=== PATIENT | male | born 1940 | race Caucasian/White ===

== ENCOUNTER 2024-11-22 09:06 | Outpatient (CLI) | payer OTHER, SELFPAY ==
--- NOTE | ~2024-11-22 | XR_ITS ---
XR ribs RT 2V w CXR 2V Ordering provider: Andrae Keller MD History: . R07.81 - Pleurodynia . Comparison: None. FINDINGS: BONES: No acute rib fracture. MEDIASTINUM: The cardiac silhouette is not enlarged. LUNGS: No infiltrates, effusions or pneumothorax. OTHER: No free air under the diaphragm. IMPRESSION: 1. No right rib fracture (Note: subtle/nondisplaced rib fractures can be occult on plain films and i f there is continued clinical suspicion for rib fracture, recommend follow up CT chest). 2. No acute cardiopulmonary findings. Reviewed, dictated and finalized at location A. IMPRESSION: 1. No right rib fracture (Note: subtle/nondisplaced rib fractures can be occul t on plain films and if there is continued clinical suspicion for rib fracture, recommend follow up CT chest). 2. No acute cardiopulmonary findings.
== END 2024-11-22 09:07 | disposition home or self-care (01) ==
LOC: MICIMG 09:08
PROVIDERS: PCP Family Medicine; Visit Provider Family Medicine
DX: R07.81 Pleurodynia (principal)
CPT/HCPCS: 71046; 71100

== ENCOUNTER 2024-11-27 11:20 | Outpatient (CLI) | payer OTHER, SELFPAY ==
--- OUTSIDE RECORDS SUMMARY | 2024-11-27 11:26 | XMS_ITS | Encounter Summary ---
Author Organization [facility] Address [address] [facility] [place] [address] Phone Care Team Providers Care Construction Controller Name Role Phone Ramon Alford MD Unavailable Isac Pina MD Primary Care Provider [phone] Emma Gibson HUMAN PROJECTILE, KETTLE GIRL Unavailable +- [phone] Denise White HUMAN PROJECTILE, SIGN FABRICATOR Unavailable [phone] Constance Garsia HUMAN PROJECTILE, KETTLE GIRL Unavailable Christian Christian HUMAN PROJECTILE, KETTLE GIRL Unavailable [phone] Dean Sauceda MD Unavailable [phone] Reason for Visit * Reason Comments Medication Refill Encounter Details Date Type Department Care Team (Late st Contact Info) Description 08/25/2023 Refill [facility] Emergency [address] [place] [address] Flori Yeboah, [place] [address] Medication Refill Social History Tobacco Use Types Packs/Day Years Used Date Smoking Tobacco: Never Passive Smoke Exposure: Never Smokeless Tobacco: Never Alcohol Use Standard Drinks/Week Comments Yes 0 (1 standard drink = 0.6 oz pur e alcohol) Occasional [facility] Utilities Answer Date Recorded In the past 12 months has th e electric, gas, oil, or water company threatened to shut off services in your home? No 07/14/2023 Social Connection and Isolation Panel Answer Date Recorded In a typical week, how many times do you talk on the phone with family, friends, or neighbors? More than three times a week 07/14/2023 How often do you get togethe r with friends or relatives? More than three times a week 07/14/2023 How often do you attend chur ch or mu-ism services? More than 4 times per year 07/14/2023 Do you belong to any clubs o r organizations such as jainism groups, unions, fraternal or athletic groups, or school groups? Yes 07/14/2023 How often do you attend meet ings of the clubs or organizations you belong to? More than 4 times per year 07/14/2023 Are you , , di vorced, , never , or living with a partner? 07/14/2023 AUDIT-C Answer Date Recorded Q1: How often do you have a drink containing alcohol? Never 07/14/2023 Q2: How many drinks containi ng alcohol do you have on a typical day when you are drinking? Patient does not drink Q3: How often do you have si x or more drinks on one occasion? Never 07/14/2023 Overall Financial Resource Strain (CARDIA) Answe r Date Recorded How hard is it for you to pa y for the very basics like food, housing, medical care, and heating? Not hard at all 07/14/2023 PHQ-2 Answer Date Recorded Total Score - Questions 1-9 0 06/25 [facility] - Occupational Stress Questionnaire Answer Date Recorded Do you feel stress - tense, restless, nervous, or anxious, or unable to sleep at night because your mind is troubled all the time - these days? Not at all 07/14/2023 Exercise Vital Sign Answer Date Recorde d On average, how many days pe r week do you engage in moderate to strenuous exercise (like a brisk walk)? 0 days 07/14/2023 On average, how many minutes do you engage in exercise at this level? 0 min 07/14/2023 Hunger Vital Sign Answer Date Recorded Within the past 12 months, y ou worried that your food would run out before you got the money to buy more. Never true 07/14/19 24 Within the past 12 months, t he food you bought just didn't last and you didn't have money to get more. Never true 07/14/2023 PRAPARE - Transportation Answer Date Re corded In the past 12 months, has l ack of transportation kept you from medical appointments or from getting medications? No 06/25 In the past 12 months, has l ack of transportation kept you from meetings, work, or from getting things needed for daily living? No 07/14/2023 Housing Stability Vital Sign Answer Fernando e Recorded In the last 12 months, was t here a time when you were not able to pay the mortgage or rent on time? No 07/14/2023 In the last 12 months, how many places have you lived? 1 07/14/2023 In the last 12 months, was t here a time when you did not have a steady place to sleep or slept in a skilled nursing (including now)? No 07/14/2023 Sexually Active Control Partners Comments Yes Female Sex and Gender Information Value Date Recorded Sex Assigned at Not on file Legal Sex Male 11:58 PM CDT Gender Identity Not on file Sexual Orientation Not on file documented as of this encounter Miscellaneous Notes * Telephone Encounter - Amada Martinez RN - 08/25/2023 9:47 AM CDT Per nursing clinical judgement, provider to review and approve the medication(s) order(s) if appropriate. 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 documented as of this encounter Care Teams Construction Controller Relationship Specialty Start Date End Date Isac Weathers MD [address] [place] [address] PCP - General Internal Medicine 06/10/23 Ramon Alford MD Consulting Physician Cardiovascular Disease - Cardiology 09/14/22 04/30/24 Emma Gibson, HUMAN PROJECTILE, KETTLE GIRL [address] [address] Nurse Practitioner Cardiology 07/05/23 Denise White, HUMAN PROJECTILE, SIGN FABRICATOR [address] [place] [address] Nurse Practitioner Advanced Practice Nurse 09/25/22 Constance Garsia HUMAN PROJECTILE, KETTLE GIRL [address] [place] [address] Nurse Practitioner Advanced Practice Nurse 12/02/22 Christian Christian, HUMAN PROJECTILE, KETTLE GIRL [address] [place] [address] Nurse Practitioner Advanced Practice Nurse 10/19/23 Dean Sauceda MD [address] [place] [id number] Consulting Physician Neurology 04/28/24 documented as of this encounter
--- OUTSIDE RECORDS SUMMARY | 2024-11-27 11:26 | XMS_ITS | Encounter Summary ---
Author Organization [facility] Address [address] [place] [address] Phone Care Team Providers Care Emt/Paramedic Name Role Phone Flori Yeboah PAC Primary Care Pro vider Ramon Alford MD Unavailable Isac Pina MD Primary Care Provider [phone] Emma Gibson EVP BUSINESS DEVELOPMENT, CLIMATOLOGIST Unavailable + [phone] Denise White EVP BUSINESS DEVELOPMENT, ARCHAEOLOGY PROFESSOR Unavailable + [phone] Constance Garsia EVP BUSINESS DEVELOPMENT, CLIMATOLOGIST Unavailable Christian Christian EVP BUSINESS DEVELOPMENT, CLIMATOLOGIST Unavailable [phone] Dean Sauceda MD Unavailable [phone] Reason for Visit * Reason Comments Medication Refill Encounter Details Date Type Department Care Team (Late st Contact Info) Description 02/02/[address] [facility] Medical/Surgical Intensive Care [address] [place] [address] Flori Yeboah, PAC [address] [place] [address] Medication Refill Social History Tobacco Use Types Packs/Day Years Used Date Smoking Tobacco: Never Smokeless Tobacco: Never Alcohol Use Standard Drinks/Week Comments Yes 0 (1 standard drink = 0.6 oz pur e alcohol) Occasional Sexually Active Control Partners Comments Yes Female Sex and Gender Information Value Date Recorded Sex Assigned at Not on file Legal Sex Male 11:58 PM CDT Gender Identity Not on file Sexual Orientation Not on file COVID-19 Exposure Response Date Recorded In the last 10 days, have yo u been in contact with someone who was confirmed or suspected to have Coronavirus/COVID-19? No / Unsure 02/04/2023 8:34 AM CDT documented as of this encounter Miscellaneous Notes * Telephone Encounter - Amada Martinez RN - 02/02/2023 8:28 AM CDT Per nursing clinical judgement, provider to review and approve the medication(s) order(s) if appropriate. Requested Prescriptions Pending Prescriptions Disp Refills lisinopril (PRINIVIL, ZESTRIL) 10 MG Tablet [Pharmacy Med Name: LISINOPRIL 10 MG TABLET] 90 Tablet 0 Sig: TAKE 1 TABLET BY MOUTH EVERY DAY There is no refill protocol information for this order documented in this encounter Plan of Treatment Not on file documented as of this encounter Visit Diagnoses Not on filedocumented in this encounter Additional Health Concerns Infection Onset Date Last Indicated Resolved Time COVID - 19 06/06/2023 06/06/2023 06/16/2023 12:1 6 AM CIRCULAR SAWYER STONE RSV 06/06/2023 06/06/2023 07/04/2023 12:1 6 AM CIRCULAR SAWYER STONE documented as of this encounter Care Teams Emt/Paramedic Relationship Specialty Start Date End Date Flori Yeboah PAC [address] [place] [address] PCP - General Physician Senior Game Designer 08/26/22 06/09/23 Isac Weathers MD [address] [place] [address] PCP - General Internal Medicine 06/10/23 Ramon Alford MD [address] [facility] [place] [address] Consulting Physician Cardiovascular Disease - Cardiology 09/14/22 04/30/24 Emma Gibson, EVP BUSINESS DEVELOPMENT, CLIMATOLOGIST [address] [address] Nurse Practitioner Cardiology 07/05/23 Denise White, EVP BUSINESS DEVELOPMENT, ARCHAEOLOGY PROFESSOR [address] [place] [address] Nurse Practitioner Advanced Practice Nurse 09/25/22 Constance Garsia APRN, CLIMATOLOGIST [address] [place] [address] Nurse Practitioner Advanced Practice Nurse 12/02/22 Christian Christian, EVP BUSINESS DEVELOPMENT, CLIMATOLOGIST [address] [place] [address] Nurse Practitioner Advanced Practice Nurse 10/19/23 Dean Sauceda MD [address] [place] [id number] Consulting Physician Neurology 04/28/24 documented as of this encounter
--- OUTSIDE RECORDS SUMMARY | 2024-11-27 11:26 | XMS_ITS | Encounter Summary ---
Author Organization [facility] Address [address] [place] [address] Phone Care Team Providers Care Vice President Digital Strategist Name Role Phone Ramon Alford MD Unavailable [facility] Isac Granda MD Primary Care Provider [phone] Emma Gibson GEOLOGICAL SCIENCE TEACHER, WING COVERER Unavailable + [phone] Denise White GEOLOGICAL SCIENCE TEACHER, MEMBER SERVICE SPECIALIST Unavailable [phone] Constance Garsia GEOLOGICAL SCIENCE TEACHER, WING COVERER Unavailable Christian Christian GEOLOGICAL SCIENCE TEACHER, WING COVERER Unavailable [phone] Dean Sauceda MD Unavailable [phone] Reason for Visit * Reason Comments Medication Refill Encounter Details Date Type Department Care Team (Late st Contact Info) Description 07/31/2023 Refill [facility] - [facility] - [place] [address] [place] [address] Isac Weathers MD [address] [place] [address] Medication Refill Social History Tobacco Use Types Packs/Day Years Used Date Smoking Tobacco: Never Passive Smoke Exposure: Never Smokeless Tobacco: Never Alcohol Use Standard Drinks/Week Comments Yes 0 (1 standard drink = 0.6 oz pur e alcohol) Occasional [facility] Utilities Answer Date Recorded In [...] often do you attend chur ch or evangelical services? More than 4 times per year 07/14/2023 Do you belong to any clubs o r organizations such as restoration groups, unions, fraternal or athletic groups, or [...] Total Score - Questions 1-9 0 06/25 [facility] of Occupat ional Health - Occupational Stress [...] place to sleep or slept in a chcf (including now)? No 07/14/2023 Sexually Active Control Partners Comments Yes Female Sex and Gender Information Value Date Recorded Sex Assigned at Not on file Legal Sex Male 11:58 PM CDT Gender Identity Not on file Sexual Orientation Not on file documented as of this encounter Miscellaneous Notes * Telephone Encounter - Amada Martinez RN - 08/02/2023 9:07 AM CDT Medication(s) refilled and signed per [facility] Chronic Medication Refill Standing Order for Pediatricand Adult Patients. Requested Prescriptions Pending Prescriptions Disp Refills atorvastatin (LIPITOR) 40 MG Tablet [Pharmacy Med Name: ATORVASTATIN 40 MG TABLET] 90 Tablet 0 Sig: TAKE 1 TABLET BY MOUTH EVERY DAY AT NIGHT Hmg CoA Reductase Inhibitors Protocol Passed - 07/31/2023 7:36 AM Passed - Visit with relevant provider in past 12 months or upcoming 90 days Recent Visits Date Type Provider Dept 07/14/23 Office Visit Isac Weathers MD [facility] 03/17/23 Office Visit Flori Yeboah PAC [facility] [place] 01/20/23 Office Visit Flori Yeboah, PAC [facility] [place] 12/14/22 Office Visit Flori Yeboah, PAC [facility] [place] 11/11/22 Office Visit Isac Weathers MD [facility] [place] 10/28/22 Office Visit Flori Yeboah, PAC [facility] [place] 10/12/22 Office Visit Flori Yeboah, PAC [facility] [place] 09/11/22 Office Visit Flori Yeboah, PAC [facility] [place] 08/26/22 Office Visit Flori Yeboah, PAC [facility] [place] Showing recent visits within past 365 days and meeting all other requirements Future Appointments Date Type Provider Dept 08/17/23 Appointment Isac Weathers MD [facility] [place] 09/17/23 Appointment Flori Yeboah, PAC [facility] [place] Showing future appointments within next 90 days and meeting all other requirements Passed - Lipid panel in past 12 months LDL Date Value Ref Range Status 08/12/2022 60 5 - 130 mg/dL Final HDL CHOLESTEROL Date Value Ref Range Status 08/12/2022 40.5 >40 mg/dL Final CHOLESTEROL Date Value Ref Range Status 08/12/2022 122 <=200 mg/dL Final TRIGLYCERIDES Date Value Ref Range Status 08/12/2022 109 <150 mg/dL Final VLDL Date Value Ref Range Status 08/12/2022 22 5 - 55 mg/dL Final CHOL/HDL RATIO Date Value Ref Range Status 08/12/2022 3.0 0.0 - 4.4 Final NON-HDL CHOLESTEROL Date Value Ref Range Status 08/12/2022 81.5 <130 mg/dL Final Passed - CMP in past 12 months SODIUM Date Value Ref Range Status 06/06/2023 128 (L) 136 - 145 mmol/L Final POTASSIUM Date Value Ref Range Status 06/06/2023 4.3 3.5 - 5.1 mmol/L Final CHLORIDE Date Value Ref Range Status 06/06/2023 97 (L) 98 - 107 mmol/L Final CO2, VENOUS Date Value Ref Range Status 06/06/2023 22 22 - 30 mmol/L Final ANION GAP Date Value Ref Range Status 06/06/2023 13.3 <18.0 mmol/L Final GLUCOSE Date Value Ref Range Status 06/06/2023 142 (H) 70 - 99 mg/dL Final BUN Date Value Ref Range Status 06/06/2023 10 8 - 26 mg/dL Final CREATININE, BLOOD Date Value Ref Range Status 06/06/2023 1.01 0.70 - 1.30 mg/dL Final BUN/CREATININE RATIO Date Value Ref Range Status 06/06/2023 10 (L) 12 - 20 ratio Final TOTAL PROTEIN Date Value Ref Range Status 06/06/2023 7.5 6.3 - 8.2 g/dL Final ALBUMIN Date Value Ref Range Status 06/06/2023 4.1 3.5 - 5.0 g/dL Final A/G RATIO Date Value Ref Range Status 06/06/2023 1.2 1.0 - 2.2 Final CALCIUM Date Value Ref Range Status 06/06/2023 9.3 8.7 - 10.5 mg/dL Final T BILI Date Value Ref Range Status 06/06/2023 1.0 0.2 - 1.2 mg/dL Final SGOT (AST) Date Value Ref Range Status 06/06/2023 24 5 - 34 U/L Final SGPT (ALT) Date Value Ref Range Status 06/06/2023 16 0 - 55 U/L Final ALKALINE PHOSPHATASE Date Value Ref Range Status 06/06/2023 80 40 - 150 U/L Final GFR, EST. NONAFRICAN Date Value Ref Range Status 06/06/2023 >60 >=60 Final GFR, EST. Date Value Ref Range Status 06/06/2023 >60 >=60 Final GFR, ESTIMATED Date Value Ref Range Status 06/06/2023 >60 >=60 Final Comment: Creatinine Clearance is the preferred criteria for selecting drug dose adjustments in renally impaired patients. The GFR is provided as additional pertinent clinical information. GFR is reported in mL/min/1.73 sq m. Calculation based on the Chronic Kidney Disease Epidemiology Collaboration (CKD- EPI) equation refitwithout adjustment for race. IS THE PATIENT REQUIRED TO BE FASTING? 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 documented as of this encounter Care Teams Vice President Digital Strategist Relationship Specialty Start Date End Date Isac Weathers MD [address] [place] [address] PCP - General Internal Medicine 06/10/23 Ramon Alford MD Consulting Physician Cardiovascular Disease - Cardiology 09/14/22 04/30/24 Emma Gibson, GEOLOGICAL SCIENCE TEACHER, WING COVERER #[address] [address] Nurse Practitioner Cardiology 07/05/23 Denise White GEOLOGICAL SCIENCE TEACHER, MEMBER SERVICE SPECIALIST [address] [place] [address] Nurse Practitioner Advanced Practice Nurse 09/25/22 Constance Garsia GEOLOGICAL SCIENCE TEACHER, WING COVERER [address] [place] [address] Nurse Practitioner Advanced Practice Nurse 12/02/22 Christian Christian, GEOLOGICAL SCIENCE TEACHER, WING COVERER [address] [place] [address] Nurse Practitioner Advanced Practice Nurse 10/19/23 Dean Sauceda MD [address] [place] [address] Consulting Physician Neurology 04/28/24 documented as of this encounter
--- OUTSIDE RECORDS SUMMARY | 2024-11-27 11:26 | XMS_ITS | Encounter Summary ---
Author Organization [facility] Address [address] [facility] [place] [address] Phone Care Team Providers Care Teaching Artist Name Role Phone Flori Yeboah PAC Primary Care Pro vider Ramon Alford MD Unavailable Isac Pina MD Primary Care Provider [phone] Emma Gibson POULTRY CULLER, VOIP ENGINEER Unavailable + [phone] Denise White POULTRY CULLER, VEGETABLE I FARMWORKER Unavailable + [phone] Constance Garsia POULTRY CULLER, VOIP ENGINEER Unavailable Christian Christian POULTRY CULLER, VOIP ENGINEER Unavailable [phone] Dean Sauceda MD Unavailable [phone] Reason for Visit * Reason Comments Medication Refill Encounter Details Date Type Department Care Team (Late st Contact Info) Description 09/23/2022 Refill [facility] - Internal Medicine - [place] [address] [place] [address] Flori Yeboah, PAC [address] [place] [address] Medication Refill Social History Tobacco Use Types Packs/Day Years Used Date Smoking Tobacco: Never Smokeless Tobacco: Never Alcohol Use Standard Drinks/Week Comments Not Asked 0 (1 standard drink = 0.6 oz pur e alcohol) Occasional Sexually Active Control Partners Comments Yes Sex and Gender Information Value Date Recorded Sex Assigned at Not on file Legal Sex Male 11:58 PM CDT Gender Identity Not on file Sexual Orientation Not on file COVID-19 Exposure Response Date Recorded In the last 10 days, have yo u been in contact with someone who was confirmed or suspected to have Coronavirus/COVID-19? No / Unsure 09/25/2022 3:11 PM CDT documented as of this encounter Plan of Treatment Not on file documented as of this encounter Visit Diagnoses Not on filedocumented in this encounter Additional Health Concerns Infection Onset Date Last Indicated Resolved Time C. difficile Rule-Out 10/28/2022 10/28/20222022 6:05 PM CDT COVID - 19 06/06/2023 06/06/2023 06/16/2023 12:1 6 AM SSDS MK 2 ADVANCED OPERATOR RSV 06/06/2023 06/06/2023 07/04/2023 12:1 6 AM SSDS MK 2 ADVANCED OPERATOR documented as of this encounter Care Teams Teaching Artist Relationship Specialty Start Date End Date Flori Yeboah, [place] [address] [place] [address] PCP - General Physician Ramp Manager 08/26/22 06/09/23 Isac Weathers MD [address] [place] [address] PCP - General Internal Medicine 06/10/23 Ramon Alford MD [address] [place] [address] Consulting Physician Cardiovascular Disease - Cardiology 09/14/22 04/30/24 Emma Gibson, POULTRY CULLER, VOIP ENGINEER [address] [facility] [place] [address] Nurse Practitioner Cardiology 2/12/24 Denise White APRN, VEGETABLE I FARMWORKER [address] [place] [address] Nurse Practitioner Advanced Practice Nurse 09/25/22 Constance Garsia APRN, VOIP ENGINEER [address] [place] [address] Nurse Practitioner Advanced Practice Nurse 12/02/22 Christian Christian POULTRY CULLER, VOIP ENGINEER [address] [place] [address] Nurse Practitioner Advanced Practice Nurse 10/19/23 Dean Sauceda MD [address] [place] [id number] Consulting Physician Neurology 04/28/24 documented as of this encounter
--- OUTSIDE RECORDS SUMMARY | 2024-11-27 11:26 | XMS_ITS | Clinical Summary ---
Author Organization [facility] Address [address] [place] [address] Care Team Providers Care Cellular Equipment Installer Name Role Phone Faraz Burch MD Unavailable [phone] Isac Weathers MD Primary Care Provider [phone] Allergies No known active allergies Medications methylsulfonylme vidal 1,000 mg tablet Take by mouth Active fwligkhf-kdjl-HP -calcium-mins 18 mg iron-400 mcg-450 mg Ca tablet Take by mouth Active aspirin 81 mg enteric coated tablet Take 1 tablet (81 mg total) by mouth daily Active celecoxib (CeleBREX) 200 mg capsule Take 1 capsule (200 mg total) by mouth daily 90 capsule 3 0 Active isosorbide mononitrate ER (IMDUR) 30 mg 24 hr tablet Take 1 tablet (30 mg total) by mouth daily 90 tablet 3 0 Active omeprazole (PriLOSEC) 20 mg capsule Take 1 capsule (20 mg total) by mouth daily 90 capsule 3 0 Active atorvastatin (LIPITOR) 10 mg tablet Take 1 tablet (10 mg total) by mouth daily 90 tablet 3 0 Active carvediloL (COREG) 6.25 mg tablet TAKE ONE TABLET BY MOUTH TWICE A DAY WITH MEALS 60 tablet 0 Active glucosamine HCl/chondroitin campo (GLUCOSAMINE-CHO NDROITIN ORAL) Take 1 tablet by mouth daily Active alfuzosin ER (UROXATRAL) 10 mg 24 hr tablet Take 1 tablet (10 mg total) by mouth daily 4 Active ammonium lactate (LAC-HYDRIN) 12 % lotion Apply topically as needed 1 Active cetirizine (ZyrTEC) 10 mg tablet Take 1 tablet (10 mg total) by mouth daily as needed Active clopidogreL (PLAVIX) 75 mg tablet Take 1 tablet (75 mg total) by mouth daily 3 Active diphenoxylate-at ropine (LOMOTIL) 2.5-0.025 mg per tablet Take 1 tablet by mouth 4 (four) times a day as needed 3 Active Jardiance 10 mg tablet Take 1 tablet (10 mg total) by mouth daily 4 Active furosemide (LASIX) 40 mg tablet Take 0.5 tablets (20 mg total) by mouth daily 3 Active lisinopriL (PRINIVIL,ZESTRI L) 5 mg tablet Take 0.5 tablets (2.5 mg total) by mouth daily 4 Active montelukast (SINGULAIR) 10 mg tablet Take 1 tablet (10 mg total) by mouth nightly 3 Active nitroglycerin (NITROSTAT) 0.[address] 1 tablet (0.4 mg total) under the tongue 8 Active spironolactone (ALDACTONE) 25 mg tablet Take 1 tablet (25 mg total) by mouth daily 4 Active Active Problems Problem Noted Date Diagnosed Date Pharyngoesophageal dysphagia 11/12/2023 Assessment & Plan (11/12/2023 3:50 PM CDT): Hearing test - hearing aids recommended Modified barium swallow study ordered, consider referral to speech therapy based on these results Sensorineural hearing loss (SNHL) of both ears 0 11/12/2023 Assessment & Plan (11/12/2023 3:51 PM CDT): Hearing test - hearing aids recommended Modified barium swallow study ordered, consider referral to speech therapy based on these results Medicare annual wellness visit, subsequent 07/14 Assessment & Plan (07/14/2022 5:17 PM ENGINEER PROCESS): 82-year-old gentleman who is a new patient to me. His previous primary care physician is retiring. Is seeing a physician in [place]. Patient's no acute distress he communicates well he has no evidence of dementia. 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 Dizziness 07/14/2022 Assessment & Plan (07/14/2022 5:19 PM ENGINEER PROCESS): Patient is 82 years old he describes feeling off balance if he turns his head too fast are stooped over to long.. Few with him this is a process of aging most likely he realizes his limitations we can and can not do before he crease this particular symptom. No treatment offer him . Discussed symptoms very mi in very infrequent and diagonal directly related to certain activities Spinal stenosis of lumbar region 10/07/2013 Overview (08/28/2016): Lumbar spinal stenosis Assessment & Plan (07/14/2022 5:18 PM ENGINEER PROCESS): Patient advised me he is a history of spinal stenosis he does not associated in his symptoms presently with this diagnosis Atopic rhinitis 04/06/2013 Overview (08/26/2016): Allergic rhinitis Cataract of both eyes 04/06/2013 Overview (08/26/2016): Cataracts, bilateral Generalized osteoarthritis 04/06/2013 Overview (08/28/2016): Osteoarthritis, generalized Assessment & Plan (07/14/2022 5:20 PM ENGINEER PROCESS): Patient describes having osteoarthritis for knees and hips in the past not active problem at this time 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 Disorder of intervertebral disc 04/06/2013 Overview (08/28/2016): Lumbar disc disease Vitamin D deficiency 04/06/2013 Overview (08/28/2016): Vitamin D deficiency Lipoma 04/06/2013 Overview (08/28/2016): Multiple lipomas Gastroesophageal reflux disease 07/15/2010 Overview (08/26/2016): Esophageal Reflux Tear film insufficiency 07/15/2010 Overview (08/27/2016): Dry eye syndrome Male erectile disorder 07/15/2010 Overview (08/27/2016): Erectile dysfunction Coronary arteriosclerosis in [place] artery 07/15 Overview (08/27/2016): SAMANTHA ATHYIN NATVE VSSL Assessment & Plan (07/14/2022 5:17 PM ENGINEER PROCESS): Patient's stents placement approximate 9 years ago he is asymptomatic does use isosorbide Immunizations Immunization Administration Dates Next Due Influenza, Trivalent, High D ose, Split, Preservative Free, Intramuscular 05/02/2019 Pneumococcal Polysaccharide PPV23 07/15/2010 TD Preservative Free 07/15/2010 Surgical History Surgery Date Site/Laterality Comments OTHER SURGICAL HISTORY 2007 Heart Disease: Stent x 2 OTHER SURGICAL HISTORY 2010 Heart Disease: Stent x 1 OTHER SURGICAL HISTORY 1982 Accident At Work: Right Knee Arthroscopy OTHER SURGICAL HISTORY 2002 Lipomas: Stomach Skin VASECTOMY 1972 Vasectomy OTHER SURGICAL HISTORY 1998 Hurt At Work: Right Knee Arthroscopy OTHER SURGICAL HISTORY Coronary artery disease: percutaneous transluminal balloon angioplasty with insertion of stent into coronary artery OTHER SURGICAL HISTORY 2012 Cataracts: Cataract extraction OTHER SURGICAL HISTORY 2006 Lipomata (multiple): Excision Medical History Medical History Date Comments Hx Other Medical 2002 Prostate Proble ms Hx Other Medical 1961 Arthritis - Mary Kate k Hx Other Medical 1985 Flat feet Cardiac disease 2006 Heart Disease Hx Other Medical 1981 Accident At Wor k Hx Other Medical 2002 Lipomas Hx Other Medical 2008 Eye Implants Hx Other Medical 1979 Left Carpal Sergio monica Hx Other Medical 1997 Hurt At Work Chronic coronary artery disease Coronary artery disease; Comments: has has x 5, last one in 10/2007 Hx Other Medical Cataracts; Comm ents: implants Hx Other Medical Lipomata (multi ple) Family History Medical History Relation Name Comments Depression Father Depression; Cau se of : Depression Suicidality Father Suicide; Cause of : Suicide Coronary artery disease Father's Sister C oronary artery disease, premature; Diabetes Maternal Grandmother Diabete s mellitus; Stroke Maternal Grandmother Stroke; Bladder Cancer Mother Cancer -bladd er; Cause of : Cancer -bladder/Cancer, bladder; Coronary artery disease Other 2 Fami ly history of Coronary artery disease, premature; Lung cancer Other 3 Family history of Cancer, lung; heavy smokers on dad's side Relation Name Status Comments Father Father's Sister Maternal Grandmother Mother (Age 73) Other 1 Alive Other 2 Other 3 Social History Tobacco Use Types Packs/Day Years Used Date Smoking Tobacco: Never Smokeless Tobacco: Never Tobacco Cessation:Counseling Given: Not Answered Alcohol Use Standard Drinks/Week Comments Yes 0 (1 standard drink = 0.6 oz pur e alcohol) PHQ-2 Answer Date Recorded PHQ-2 Total Score (If total score is 3 or more points, staff should administer the PHQ-9) 0 07/14/2022 Sex and Gender Information Value Date Recorded Sex Assigned at Not on file Legal Sex Male 12:31 AM ENGINEER PROCESS Gender Identity Not on file Sexual Orientation Not on file Obstetrics History Last Filed Vital Signs Vital Sign Reading Time Taken Comments Blood Pressure 103/58 11/12/2023 9:31 AM CDT Pulse 68 11/12/2023 9:31 AM CDT Temperature 36.3 C (97.3 F) 07/14/2022 12:59 PM ENGINEER PROCESS Respiratory Rate 18 11/12/2023 9:31 AM CDT Oxygen Saturation 96% 11/12/2023 9:31 AM CDT Inhaled Oxygen Concentration - - Weight 73.5 kg (162 lb) 11/12/2023 9:31 AM CDT Height 175.3 cm (5' 9) 11/12/2023 9:31 AM CDT Body Mass Index 23.92 11/12/2023 9:31 AM CDT Plan of Treatment Health Maintenance Due Date Last Done Comments Fall Risk Assessment 1940 Hepatitis B Screening 1958 Zoster Vaccine (1 of 2) 1990 DTaP/Tdap/Td Vaccine (1 - Tdap) 04/01/2016 03/31/2016, 03/31/2016, 07/15/2010, Additional history exists Depression Screening 07/14/2023 07/14/2022, 05/02/20 19 Well Visit 65+ 07/14/2023 07/14/2022 Influenza Vaccine Discontinued 03/06/2020, 05/02/2019 Pneumococcal vaccine 65+ Completed 020, 06/26/2013, 07/15/2010 Insurance [facility] [place] [id number] Advance Directives For more information, please contact: [phone] Documents on File Type Date Recorded Patient School Clerk Expl anation ADVANCE DIRECTIVE 05/08/2019 8:14 AM Care Teams Cellular Equipment Installer Relationship Specialty Start Date End Date Faraz Burch MD [address] [place] [address] PCP - [facility] PCP 04/23/19 Isac Weathers MD [address] [place] [address] PCP - General Internal Medicine 11/02/22
--- OUTSIDE RECORDS SUMMARY | 2024-11-27 11:26 | XMS_ITS | Encounter Summary ---
Author Organization [facility] Address [address] [facility] [place] [address] Phone Care Team Providers Care Test Preparation Tutor Name Role Phone Flori Yeboah PAC Primary Care Pro vider Ramon Alford MD Unavailable UnaIsac Stubbs MD Primary Care Provider [phone] Emma Gibson CITRUS PICKER, TRIALS MANAGER Unavailable + [phone] Denise White CITRUS PICKER, NERVE SPECIALIST Unavailable + [phone] Constance Garsia CITRUS PICKER, TRIALS MANAGER Unavailable Christian Christian CITRUS PICKER, TRIALS MANAGER Unavailable [phone] Dean Sauceda MD Unavailable [phone] Reason for Visit * Reason Comments Medication Refill Encounter Details Date Type Department Care Team (Late st Contact Info) Description 11/21/2022 [facility] [address] [place] [id number] Isac Weathers MD [address] [place] [address] Medication Refill Social History Tobacco Use [...] suspected to have Coronavirus/COVID-19? No / Unsure 11/16/2022 8:37 AM CDT documented as of this encounter Plan of Treatment Not on file documented as of this encounter Visit Diagnoses Not on filedocumented in this encounter Additional Health Concerns Infection Onset Date Last Indicated Resolved Time COVID - 19 06/06/2023 06/06/2023 06/16/2023 12:1 6 AM FINANCE INSURANCE MANAGER RSV 06/06/2023 06/06/2023 07/04/2023 12:1 6 AM FINANCE INSURANCE MANAGER documented as of this encounter Care Teams Test Preparation Tutor Relationship Specialty Start Date End Date Flori Yeboah PAC [address] [facility] [place] [address] PCP - General Physician Veterinary Anatomist 08/26/22 06/09/23 Isac Weathers MD [address] [place] [address] PCP - General Internal Medicine 06/10/23 Ramon Alford MD [address] [place] [address] Consulting Physician Cardiovascular Disease - Cardiology 09/14/22 04/30/24 Emma Gibson APRN, TRIALS MANAGER [address] [facility] [address] [place] [address] Nurse Practitioner Cardiology 07/05/23 Denise White APRN, NERVE SPECIALIST [address] [place] [address] Nurse Practitioner Advanced Practice Nurse 09/25/22 Constance Garsia APRN, TRIALS MANAGER [address] [place] [address] Nurse Practitioner Advanced Practice Nurse 12/02/22 Christian Christian APRN, TRIALS MANAGER [address] [place] [address] Nurse Practitioner Advanced Practice Nurse 10/19/23 Dean Sauceda MD [address] [place] [address] Consulting Physician Neurology 04/28/24 documented as of this encounter
--- OUTSIDE RECORDS SUMMARY | 2024-11-27 11:26 | XMS_ITS | Encounter Summary ---
Author Organization [facility] Address [address] [facility] [place] [address] Phone Care Team Providers Care Dredge Mate Name Role Phone Ramon Alford MD Unavailable [facility] Isac Granda MD Primary Care Provider [phone] Emma Gibson EXTRACTOR TENDER RAW STOCK, DIE CUT OPERATOR Unavailable + [phone] Denise White EXTRACTOR TENDER RAW STOCK, AUTOMOTIVE PARTS COUNTER PERSON Unavailable [phone] Constance Garsia EXTRACTOR TENDER RAW STOCK, DIE CUT OPERATOR Unavailable Christian Christian EXTRACTOR TENDER RAW STOCK, DIE CUT OPERATOR Unavailable [phone] Dean Sauceda MD Unavailable [phone] Reason for Visit * Reason Comments Medication Refill Encounter Details Date Type Department Care Team (Late st Contact Info) Description 10/30/2023 Refill [facility] - Internal Medicine - [place] [address] [place] [address] Isac Weathers MD [address] [place] [address] Medication Refill Social History Tobacco Use [...] shut off services in your home? No 09/14/2023 Social Connection and Isolation Panel Answer Date Recorded In a typical week, how many times do you talk on the phone with family, friends, or neighbors? Never 09/14/2023 How often do you get togethe r with friends or relatives? Never 09/14/2023 How often do you attend yarsani or advent serv ices? Never 09/14/2023 Do you belong to any clubs o r organizations such as yarsani groups, unions, fraternal or athletic groups, or school groups? No 09/14/2023 How often do you attend meet ings of the clubs or organizations you belong to? Never 09/14/2023 Are you , , di vorced, , never , or living with a partner? Patient declined 09/14/2023 AUDIT-C Answer Date Recorded Q1: How often do you have a drink containing alcohol? Never 09/14/2023 Q2: How many drinks containi ng alcohol do you have on a typical day when you are drinking? Patient does not drink Q3: How often do you have si x or more drinks on one occasion? Never 09/14/2023 Overall Financial Resource Strain (CARDIA) Answe r Date Recorded How hard is it for you to pa y for the very basics like food, housing, medical care, and heating? Not hard at all 09/14/2023 PHQ-2 Answer Date Recorded Total Score - Questions 1-9 0 06/25 [facility] - Occupational Stress Questionnaire Answer Date Recorded Do you feel stress - tense, restless, nervous, or anxious, or unable to sleep at night because your mind is troubled all the time - these days? Not at all 09/14/2023 Exercise Vital Sign Answer Date Recorde d On average, how many days pe r week do you engage in moderate to strenuous exercise (like a brisk walk)? 3 days 09/14/2023 On average, how many minutes do you engage in exercise at this level? 30 min 09/14/2023 Hunger Vital Sign Answer Date Recorded Within the past 12 months, y ou worried that your food would run out before you got the money to buy more. Never true 09/14/19 24 Within the past 12 months, t he food you bought just didn't last and you didn't have money to get more. Never true 09/14/2023 PRAPARE - Transportation Answer Date Re corded In the past 12 months, has l ack of transportation kept you from medical appointments or from getting medications? No 08/23 In the past 12 months, has l ack of transportation kept you from meetings, work, or from getting things needed for daily living? No 09/14/2023 Housing Stability Vital Sign Answer Fernando e Recorded In the last 12 months, was t here a time when you were not able to pay the mortgage or rent on time? No 09/14/2023 In the last 12 months, how many places have you lived? 1 09/14/2023 In the last 12 months, was t here a time when you did not have a steady place to sleep or slept in a nursing home (including now)? No 09/14/2023 Sexually Active Control Partners Comments Yes Female Sex and Gender Information Value Date Recorded Sex Assigned at Not on file Legal Sex Male 11:58 PM CDT Gender Identity Not on file Sexual Orientation Not on file documented as of this encounter Miscellaneous Notes * Telephone Encounter - Amada Martinez RN - 11/01/2023 8:41 AM CDT Medication failed the protocol, provider to review and approve the medication order if appropriate. Requested Prescriptions Pending Prescriptions Disp Refills atorvastatin (LIPITOR) 40 MG Tablet [Pharmacy Med Name: ATORVASTATIN 40 MG TABLET] 90 Tablet 0 Sig: TAKE 1 TABLET BY MOUTH EVERY DAY AT NIGHT [facility]mg CoA Reductase Inhibitors Protocol Failed - 10/30/2023 7:28 AM Failed - Lipid panel in past 12 months [...] 08/12/2022 81.5 <130 mg/dL Final Passed - Visit with relevant provider in past 12 months or upcoming 90 days Recent Visits Date Type Provider Dept 09/27/23 Office Visit Flori Yeboah, PAC [facility] 09/20/23 Office Visit Flori Yeboah, PAC [facility] 08/17/23 Office Visit Isac Weathers MD [facility] 07/14/23 Office Visit Isac Weathers MD [facility] 03/17/23 Office Visit Flori Yeboah, PAC [facility] 01/20/23 Office Visit Flori Yeboah, PAC [facility] 12/14/22 Office Visit Flori Yeboah, PAC [facility] 11/11/22 Office Visit Isac Weathers MD [facility] Showing recent visits within past 365 days and meeting all other requirements Future Appointments Date Type Provider Dept 11/17/23 Appointment Isac Weathers MD [facility] Showing future appointments within next 90 days and meeting all other requirements Passed - CMP in past 12 months SODIUM Date Value Ref Range Status 09/15/2023 129 (L) 136 - 145 mmol/L Final POTASSIUM Date Value Ref Range Status 09/15/2023 4.2 3.5 - 5.1 mmol/L Final CHLORIDE Date Value Ref Range Status 09/15/2023 97 (L) 98 - 107 mmol/L Final CO2, VENOUS Date Value Ref Range Status 09/15/2023 26 22 - 30 mmol/L Final ANION GAP Date Value Ref Range Status 09/15/2023 10.2 <18.0 mmol/L Final GLUCOSE Date Value Ref Range Status 09/15/2023 115 (H) 70 - 99 mg/dL Final BUN Date Value Ref Range Status 09/15/2023 17 8 - 26 mg/dL Final CREATININE, BLOOD Date Value Ref Range Status 09/15/2023 0.82 0.70 - 1.30 mg/dL Final BUN/CREATININE RATIO Date Value Ref Range Status 09/15/2023 21 (H) 12 - 20 ratio Final TOTAL PROTEIN Date Value Ref Range Status 09/14/2023 7.0 6.3 - 8.2 g/dL Final ALBUMIN Date Value Ref Range Status 09/14/2023 4.0 3.5 - 5.0 g/dL Final A/G RATIO Date Value Ref Range Status 09/14/2023 1.3 1.0 - 2.2 Final CALCIUM Date Value Ref Range Status 09/15/2023 9.3 8.7 - 10.5 mg/dL Final T BILI Date Value Ref Range Status 09/14/2023 0.6 0.2 - 1.2 mg/dL Final SGOT (AST) Date Value Ref Range Status 09/14/2023 20 5 - 34 U/L Final SGPT (ALT) Date Value Ref Range Status 09/14/2023 13 0 - 55 U/L Final ALKALINE PHOSPHATASE Date Value Ref Range Status 09/14/2023 76 40 - 150 U/L Final GFR, EST. NONAFRICAN Date Value Ref Range Status 09/15/2023 >60 >=60 Final GFR, EST. Date Value Ref Range Status 09/15/2023 >60 >=60 Final GFR, ESTIMATED Date Value Ref Range Status 09/15/2023 >60 >=60 Final Comment: Creatinine Clearance is [...] Depression Total Score: 0 07/14/19 10:17 AM BRAND ADVISOR documented as of this encounter Care Teams Dredge Mate Relationship Specialty Start Date End Date Isac Weathers MD [address] [place] [address] PCP - General Internal Medicine 06/10/23 Ramon Alford MD Consulting Physician Cardiovascular Disease - Cardiology 09/14/22 04/30/24 Emma Gibson, EXTRACTOR TENDER RAW STOCK, DIE CUT OPERATOR #[address] [facility] [address] [place] [address] Nurse Practitioner Cardiology 07/05/23 Denise White, EXTRACTOR TENDER RAW STOCK, AUTOMOTIVE PARTS COUNTER PERSON [address] [place] [address] Nurse Practitioner Advanced Practice Nurse 09/25/22 Constance Garsia, EXTRACTOR TENDER RAW STOCK, DIE CUT OPERATOR [address] [place] [address] Nurse Practitioner Advanced Practice Nurse 12/02/22 Christian Christian, EXTRACTOR TENDER RAW STOCK, DIE CUT OPERATOR [address] [place] [address] Nurse Practitioner Advanced Practice Nurse 10/19/23 Dean Sauceda MD [address] [place] [address] Consulting Physician Neurology 04/28/24 documented as of this encounter
--- OUTSIDE RECORDS SUMMARY | 2024-11-27 11:26 | XMS_ITS | Encounter Summary ---
Author Organization [facility] Address [facility] [place] [address] Care Team Providers Care Environment Artist Name Role Phone Tiffany Piedra MD Primary Care Provider + [phone] Jamil Castellanos MD Unavailable [phone] Isac Weathers MD Primary Care Provider [phone] Encounter Details Date Type Department Care Team (Late st Contact Info) Description 10/05/2017 Abstract [facility] at [address] [address] Corwin Nazario MA Social History Tobacco Use Types Packs/Day Years Used Date Smoking Tobacco: Never Alcohol Use Standard Drinks/Week Comments Yes 23.3 (1 standard drink = 0.6 oz pure alcohol) Beer 1-2 per day Sex and Gender Information Value Date Recorded Sex Assigned at Not on file Legal Sex Male 9:21 PM CDT Gender Identity Not on file Sexual Orientation Straight 05/13/2018 2: 41 PM [employer] 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 Not on file Not on file documented as of this encounter Plan of Treatment Not on file documented as of this encounter Procedures Procedure Name Priority Date/Time Associated Diagnosis Comments LIPID PANEL Routine 07/05/2015 documented in this encounter Results * LIPID PANEL (07/05/2015) CHOLESTEROL 194 HDL 43 TRIGLYCERIDES 98 LDL (CALCULATED) 131.4 07/05/2015 us Doc [facility] LABORATORY Edited Resul t - Final documented in this encounter Visit Diagnoses Not on filedocumented in this encounter Care Teams Environment Artist Relationship Specialty Start Date End Date Tiffany Piedra MD PCP - General INTERNAL MEDICINE 07/22/17 05/23/22 Isac Weathers MD [address] [place] [address] PCP - General INTERNAL MEDICINE 05/24/22 Jamil Castellanos MD [facility] [address] [address] [place] Speech Correction Assistant CARDIOVASCULAR DISEASE 09/29/17 documented as of this encounter
--- OUTSIDE RECORDS SUMMARY | 2024-11-27 11:26 | XMS_ITS | Encounter Summary ---
Author Organization [facility] Address [address] [facility] [place] [address] Phone Care Team Providers Care Machine Ii Coremaker Name Role Phone Flori Yeboah PAC Primary Care Pro vider Ramon Alford MD Unavailable Isac Pina MD Primary Care Provider [phone] Emma Gibson HOMICIDE SQUAD SERGEANT, PRODUCT/DEVICE TECHNOLOGIST Unavailable + [phone] Denise White HOMICIDE SQUAD SERGEANT, WOOD HEEL BACK LINER Unavailable + [phone] Constance Garsia HOMICIDE SQUAD SERGEANT, PRODUCT/DEVICE TECHNOLOGIST Unavailable Christian Christian HOMICIDE SQUAD SERGEANT, PRODUCT/DEVICE TECHNOLOGIST Unavailable +[phone] Dean Sauceda MD Unavailable +[phone] Reason for Visit * Reason Comments Medication Refill Encounter Details Date Type Department Care Team (Late st Contact Info) Description 11/05/2022 Refill [facility] Intensive Care [address] [place] [id number] Isac Weathers MD [address] [place] [address] Medication Refill Social History Tobacco Use [...] suspected to have Coronavirus/COVID-19? No / Unsure 10/28/2022 10:59 AM CDT documented as of this encounter Miscellaneous Notes * Telephone Encounter - Amada Martinez RN - 11/05/2022 3:10 PM CDT Per nursing clinical judgement, provider to review and approve the medication(s) order(s) if appropriate. Requested Prescriptions Pending Prescriptions Disp Refills lisinopril (PRINIVIL, ZESTRIL) 10 MG Tablet [Pharmacy Med Name: LISINOPRIL 10 MG TABLET] 90 Tablet Sig: TAKE 1 TABLET BY MOUTH EVERY DAY There is no refill protocol information for this order documented in this encounter Plan of Treatment Not on file documented as of this encounter Visit Diagnoses Not on filedocumented in this encounter Additional Health Concerns Infection Onset Date Last Indicated Resolved Time COVID - 19 06/06/2023 06/06/2023 06/16/2023 12:1 6 AM FORM BUILDER RSV 06/06/2023 06/06/2023 07/04/2023 12:1 6 AM FORM BUILDER documented as of this encounter Care Teams Machine Ii Coremaker Relationship Specialty Start Date End Date Flori Yeboah PAC [address] [place] [address] PCP - General Physician Software Design Engineer 08/26/22 06/09/23 Isac Weathers MD [address] [place] [address] PCP - General Internal Medicine 06/10/23 Ramon Alford MD [address] [place] [address] Consulting Physician Cardiovascular Disease - Cardiology 09/14/22 04/30/24 Emma Gibson, HOMICIDE SQUAD SERGEANT, PRODUCT/DEVICE TECHNOLOGIST #[address] [address] Nurse Practitioner Cardiology 07/05/23 Denise White, HOMICIDE SQUAD SERGEANT, WOOD HEEL BACK LINER [address] [place] [address] Nurse Practitioner Advanced Practice Nurse 09/25/22 Constance Garsia HOMICIDE SQUAD SERGEANT, PRODUCT/DEVICE TECHNOLOGIST [address] [place] [address] Nurse Practitioner Advanced Practice Nurse 12/02/22 Christian Christian, HOMICIDE SQUAD SERGEANT, PRODUCT/DEVICE TECHNOLOGIST [address] [place] [address] Nurse Practitioner Advanced Practice Nurse 10/19/23 Dean Sauceda MD [address] [place] [id number] Consulting Physician Neurology 04/28/24 documented as of this encounter
--- OUTSIDE RECORDS SUMMARY | 2024-11-27 11:26 | XMS_ITS | Encounter Summary ---
Author Organization [facility] Address [address] [place] [address] Phone Care Team Providers Care Power Engineer Name Role Phone Flori Yeboah PAC Primary Care Pro vider Ramon Alford MD Unavailable Isac Pina MD Primary Care Provider [phone] Emma Gibson GUM MACHINE FILLER, TWIST MAKER Unavailable + [phone] Denise White GUM MACHINE FILLER, PLUMBER MAINTENANCE Unavailable + [phone] Constance Garsia GUM MACHINE FILLER, TWIST MAKER Unavailable Christian Christian GUM MACHINE FILLER, TWIST MAKER Unavailable [phone] Dean Sauceda MD Unavailable +[phone] Reason for Visit * Reason Comments Medication Refill Encounter Details Date Type Department Care Team (Late st Contact Info) Description 05/08/2023 Refill [facility] - [place] [address] [place] [address] Flori Yeboah, PAC [address] [place] [address] Medication Refill Social History Tobacco [...] 19 06/06/2023 06/06/2023 06/16/2023 12:1 6 AM LARGE SHEETFED PRESS OPERATOR RSV 06/06/2023 06/06/2023 07/04/2023 12:1 6 AM LARGE SHEETFED PRESS OPERATOR documented as of this encounter Care Teams Power Engineer Relationship Specialty Start Date End Date Flori Yeboah, [place] [address] [place] [address] PCP - General Physician Drying Frame Operator 08/26/22 06/09/23 Isac Weathers MD [address] [place] [address] PCP - General Internal Medicine 06/10/23 Ramon Alford MD [address] [place] [address] Consulting Physician Cardiovascular Disease - Cardiology 09/14/22 04/30/24 Emma Gibson APRN, TWIST MAKER [address] [facility], [address] [place] [address] Nurse Practitioner Cardiology 07/05/23 Denise White APRN, PLUMBER MAINTENANCE [address] [place] [address] Nurse Practitioner Advanced Practice Nurse 09/25/22 Constance Garsia APRN, TWIST MAKER [address] [place] [address] Nurse Practitioner Advanced Practice Nurse 12/02/22 Christian Christian APRN, TWIST MAKER [address] [place] [address] Nurse Practitioner Advanced Practice Nurse 10/19/23 Dean Sauceda MD [address] [place] [address] Consulting Physician Neurology 04/28/24 documented as of this encounter
--- OUTSIDE RECORDS SUMMARY | 2024-11-27 11:26 | XMS_ITS | Encounter Summary ---
Author Organization [facility] Address [address] [place] [address] Phone Care Team Providers Care Hostess Host Name Role Phone Flori Yeboah PAC Primary Care Pro vider Ramon Alford MD Unavailable Isac Pina MD Primary Care Provider [phone] Emma Gibson PROGRAM ASSISTANT, APPLICATION SUPPORT ANALYST Unavailable + [phone] Denise White PROGRAM ASSISTANT, DIRECTOR OF LITIGATION Unavailable + [phone] Constance Garsia PROGRAM ASSISTANT, APPLICATION SUPPORT ANALYST Unavailable Christian Christian PROGRAM ASSISTANT, APPLICATION SUPPORT ANALYST Unavailable +[phone] Dean Sauceda MD Unavailable [phone] Reason for Visit * Reason Comments Medication Refill Encounter Details Date Type Department Care Team (Late st Contact Info) Description 02/25/2023 Refill [facility] Emergency [address] [place] [address] Flori Yeboah, PAC [address] [place] [address] Medication Refill Social History Tobacco Use [...] Telephone Encounter - Amada Martinez RN - 02/25/2023 8:53 AM CDT Per nursing clinical judgement, provider [...] 19 06/06/2023 06/06/2023 06/16/2023 12:1 6 AM LABORATORY SPECIALIST RSV 06/06/2023 06/06/2023 07/04/2023 12:1 6 AM LABORATORY SPECIALIST documented as of this encounter Care Teams Hostess Host Relationship Specialty Start Date End Date Flori Yeboah PAC [address] [place] [address] PCP - General Physician Leather Products Supervisor 08/26/22 06/09/23 Isac Weathers MD [address] [place] [address] PCP - General Internal Medicine 06/10/23 Ramon Alford MD [address] [place] [address] Consulting Physician Cardiovascular Disease - Cardiology 09/14/22 04/30/24 Emma Gibson, PROGRAM ASSISTANT, APPLICATION SUPPORT ANALYST [address] [place] [address] Nurse Practitioner Cardiology 07/05/23 Denise White, PROGRAM ASSISTANT, DIRECTOR OF LITIGATION [address] [place] [address] Nurse Practitioner Advanced Practice Nurse 09/25/22 Constance Garsia PROGRAM ASSISTANT, APPLICATION SUPPORT ANALYST [address] [place] [address] Nurse Practitioner Advanced Practice Nurse 12/02/22 Christian Christian, PROGRAM ASSISTANT, APPLICATION SUPPORT ANALYST [address] [place] [address] Nurse Practitioner Advanced Practice Nurse 10/19/23 Dean Sauceda MD [address] [place] [phone] Consulting Physician Neurology 04/28/24 documented as of this encounter
--- OUTSIDE RECORDS SUMMARY | 2024-11-27 11:26 | XMS_ITS | Encounter Summary ---
Author Organization [facility] Address [address] [facility] [place] [address] Phone Care Team Providers Care Dining Server Name Role Phone Flori Yeboah PAC Primary Care Pro vider Ramon Alford MD Unavailable UnaIsac Stubbs MD Primary Care Provider [phone] Emma Gibson CLAY PROCESSING LABOURER, LIFE COACH Unavailable + [phone] Denise White CLAY PROCESSING LABOURER, EXPLOSIVE ORDNANCE MANAGER Unavailable + [phone] Constance Garsia CLAY PROCESSING LABOURER, LIFE COACH Unavailable Christian Christian CLAY PROCESSING LABOURER, LIFE COACH Unavailable +[phone] Dean Sauceda MD Unavailable +[phone] Reason for Visit * Reason Comments Medication Refill Encounter Details Date Type Department Care Team (Late st Contact Info) Description 11/[facility] [address] [place] [address] Isac Weathers MD [address] [place] [address] Medication Refill Social History Tobacco Use [...] suspected to have Coronavirus/COVID-19? No / Unsure 11/25/2022 9:13 AM CDT documented as of this encounter Miscellaneous Notes * Telephone Encounter - Amada Martinez RN - 11/25/2022 1:45 PM CDT Per nursing clinical judgement, provider to review and approve the medication(s) order(s) if appropriate. Requested Prescriptions Pending Prescriptions Disp Refills esomeprazole (NexIUM) 20 MG CAPSULE DELAYED RELEASE [Pharmacy Med Name: ESOMEPRAZOLE MAG DR 20 MG CAP] 30 Capsule Sig: TAKE 1 CAPSULE BY MOUTH EVERY DAY There is no refill protocol information for this order documented in this encounter Plan of Treatment Not on file documented as of this encounter Visit Diagnoses Not on filedocumented in this encounter Additional Health Concerns Infection Onset Date Last Indicated Resolved Time COVID - 19 06/06/2023 06/06/2023 06/16/2023 12:1 6 AM CHILD CARE AIDE RSV 06/06/2023 06/06/2023 07/04/2023 12:1 6 AM CHILD CARE AIDE documented as of this encounter Care Teams Dining Server Relationship Specialty Start Date End Date Flori Yeboah PAC [address] [place] [address] PCP - General Physician Veneer Marker 08/26/22 06/09/23 Isac Weathers MD [address] [place] [address] PCP - General Internal Medicine 06/10/23 Ramon Alford MD [address] [place] [address] Consulting Physician Cardiovascular Disease - Cardiology 09/14/22 04/30/24 Emma Gibson, CLAY PROCESSING LABOURER, LIFE COACH #[address] [address] Nurse Practitioner Cardiology 07/05/23 Denise White, CLAY PROCESSING LABOURER, EXPLOSIVE ORDNANCE MANAGER [address] [place] [address] Nurse Practitioner Advanced Practice Nurse 09/25/22 Constance Garsia CLAY PROCESSING LABOURER, LIFE COACH #2 [place] [id number] Nurse Practitioner Advanced Practice Nurse 12/02/22 Christian Christian, CLAY PROCESSING LABOURER, LIFE COACH [address] [place] [address] Nurse Practitioner Advanced Practice Nurse 10/19/23 Dean Sauceda MD [address] [place] [phone] Consulting Physician Neurology 04/28/24 documented as of this encounter
--- OUTSIDE RECORDS SUMMARY | 2024-11-27 11:26 | XMS_ITS | Encounter Summary ---
Author Organization [facility] Address [address] [facility] [place] [address] Phone Care Team Providers Care Joint Runner Name Role Phone Flori Yeboah PAC Primary Care Pro vider Ramon Alford MD Unavailable UnaIsac Stubbs MD Primary Care Provider [phone] Emma Gibson STATION REPAIRER, FAMILY SERVICES ASSISTANT Unavailable + [phone] Denise White STATION REPAIRER, MACHINE OPERATOR FARMWORKER Unavailable + [phone] Constance Garsia STATION REPAIRER, FAMILY SERVICES ASSISTANT Unavailable Christian Christian STATION REPAIRER, FAMILY SERVICES ASSISTANT Unavailable [phone] Dean Sauceda MD Unavailable +[phone] Reason for Visit * Reason Comments Medication Refill Encounter Details Date Type Department Care Team (Late st Contact Info) Description 09/25/2022 Refill [facility] - Internal Medicine - [place] [address] [place] [address] Isac Weathers MD [address] [place] [address] Medication Refill Social History Tobacco Use [...] 19 06/06/2023 06/06/2023 06/16/2023 12:1 6 AM TEACHER AIDE CLERICAL RSV 06/06/2023 06/06/2023 07/04/2023 12:1 6 AM TEACHER AIDE CLERICAL documented as of this encounter Care Teams Joint Runner Relationship Specialty Start Date End Date Flori Yeboah PAC [address] [place] [address] PCP - General Physician Rental Car Deliverer 08/26/22 06/09/23 Isac Weathers MD [address] [place] [address] PCP - General Internal Medicine 06/10/23 Ramon Alford MD [address] [place] [address] Consulting Physician Cardiovascular Disease - Cardiology 09/14/22 04/30/24 Emma Gibson, STATION REPAIRER, FAMILY SERVICES ASSISTANT [address]2 [facility], [address] [place] [address] Nurse Practitioner Cardiology 07/05/23 Denise White APRN, MACHINE OPERATOR FARMWORKER [address] [place] [address] Nurse Practitioner Advanced Practice Nurse 09/25/22 Constance Garsia APRN, FAMILY SERVICES ASSISTANT #2 [place] [address] Nurse Practitioner Advanced Practice Nurse 12/02/22 Christian Christian APRN, FAMILY SERVICES ASSISTANT [address] [place] [address] Nurse Practitioner Advanced Practice Nurse 10/19/23 Dean Sauceda MD [address] [place] [phone] Consulting Physician Neurology 04/28/24 documented as of this encounter
--- OUTSIDE RECORDS SUMMARY | 2024-11-27 11:26 | XMS_ITS | Clinical Summary ---
Author Organization [facility] Address [address] [place] [address] Care Team Providers Care Varnish Melter Name Role Phone Jamil Castellanos MD Unavailable [phone] Isac Weathers MD Primary Care Provider [phone] Allergies No known active allergies Medications aspirin EC (ASPIRIN EC) 81 MG tablet Take 1 tablet (81 mg total) by mouth daily. 10/04/19 14 Active nitroglycerin 0.4 MG SL tabletIndications:Ch est pain, unspecified type Place 1 tablet (0.4 mg total) under the tongue every 5 (five) minutes as needed for Chest Pain (max 3 doses; if pain persists, call 911). 25 tablet 05/13/20 18 Active GLUCOSAMINE-CHONDROI TIN OR Take 1 tablet by mouth daily. Active AMMONIUM LACTATE 12 % lotionIndications:Dr roth skin dermatitis APPLY TOPICALLY NEEDED FOR DRY SKIN 225 g 2 09/25/19 21 Active atorvastatin (LIPITOR) 10 MG tabletIndications:Dy slipidemia TAKE 1 TABLET BY MOUTH EVERY DAY 90 tablet 1 03/12/20 22 Active Additional Information Patient taking differently: 40 mg Daily, Informant: Other, Reported on 08/13/2022 omeprazole (PRILOSEC) 20 MG capsuleIndications:G astroesophageal reflux disease without esophagitis TAKE 1 CAPSULE BY MOUTH EVERY DAY BEFORE BREAKFAST 90 capsule 06/08/19 23 Active carvedilol (COREG) 6.25 MG tabletIndications:At herosclerosis of [place] coronary artery of [place] heart without angina pectoris Take 1 tablet (6.25 mg total) by mouth 2 (two) times daily. 180 tablet 1 06/16/19 23 Active isosorbide mononitrate ER (IMDUR) 30 MG 24 hr tabletIndications:Re current coronary arteriosclerosis after percutaneous transluminal coronary angioplasty TAKE ONE TABLET BY MOUTH ONCE DAILY 90 tablet 06/26/19 23 Active furosemide (LASIX) 40 MG tablet Take 1 tablet (40 mg total) by mouth daily. Active lisinopril (PRINIVIL) 10 MG tablet Take 1 tablet (10 mg total) by mouth daily. Active pantoprazole EC (PROTONIX) 40 MG tablet Take 1 tablet (40 mg total) by mouth daily. Active polyethylene glycol (GLYCOLAX) packet Take 240 mLs (17 g total) by mouth daily as needed. Dissolve powder in 240 mL water Active Senna (SENOKOT) 8.6 MG tablet Take 1 tablet (8.6 mg total) by mouth 2 (two) times daily as needed for Constipation. Active celecoxib (CELEBREX) 200 MG capsuleIndications:B ilateral low back pain without sciatica,Muscle pain,Neck pain TAKE 1 CAPSULE BY MOUTH EVERY DAY BEFORE BREAKFAST 30 capsule 08/18/19 23 Active Active Problems Problem Noted Date Diagnosed Date Thrombocytopenia 05/19/2022 Panlobular emphysema (CMS/HCC HHS/HCC) 1 Atherosclerosis of aorta 05/07/2021 Dyslipidemia 07/18/2018 Hematoma 2018 CAD (coronary artery disease) 2018 Headache 04/19/2018 BMI 26.0-26.9,adult 03/07/2018 Postural dizziness with presyncope 03/07/2018 Palpitations 08/18/2017 Mitral regurgitation 01/23/2017 Overview (04/19/2018): Annotation - [id number]: 11/28/14 echo mild - mod MR Old MA (myocardial infarction) 01/23/2017 Environmental allergies 01/19/2017 Presence of stent in coronary artery 04/02/2016 Nocturia 08/09/2015 Neck pain 07/09/2015 Bilateral low back pain without sciatica 016 Carotid atherosclerosis 02/19/2015 Overview (04/19/2018): Annotation - [id number]: Annotation: Aortic atherosclerosis (I70.0); Impression - [id number] Tiffany Piedra: Impression: Asymptomatic. Continue established treatment plan including control of risk factors.; Description: Aortic atherosclerosis (I70.0) Annotation - [id number]: 03/05/15 carotid doppler mild bilat carotid stenosis Arteriosclerosis of coronary artery in patient with history of myocardial infarction 11/26/2014 Spinal stenosis of lumbar region 10/07/2013 Overview (04/19/2018): Overview: Lumbar spinal stenosis Asthma, mild intermittent (HHS/HCC) 09/06/2013 Arthritis involving multiple sites 06/26/2013 Atopic rhinitis 04/06/2013 Overview (04/19/2018): Overview: Allergic rhinitis Benign prostatic hyperplasia 04/06/2013 Overview (04/19/2018): Overview: BPH (benign prostatic hypertrophy) Cataract of both eyes 04/06/2013 Overview (04/19/2018): Overview: Cataracts, bilateral Disorder of intervertebral disc 04/06/2013 Overview (04/19/2018): Overview: Lumbar disc disease Generalized osteoarthritis 04/06/2013 Overview (04/19/2018): Overview: Osteoarthritis, generalized Lipoma 04/06/2013 Overview (04/19/2018): Overview: Multiple lipomas Recurrent coronary arteriosc lerosis after percutaneous transluminal coronary angioplasty 04/06/2013 Overview (04/19/2018): Overview: CAD S/P percutaneous coronary angioplasty ED (erectile dysfunction) 07/15/2010 Overview (04/19/2018): Overview: Erectile dysfunction Gastroesophageal reflux disease 07/15/2010 Overview (04/19/2018): Overview: Esophageal Reflux Tear film insufficiency 07/15/2010 Overview (04/19/2018): Overview: Dry eye syndrome Atherosclerosis of [place] co ronary artery of [place] heart with stable angina pectoris Essential hypertension Immunizations Immunization Administration Dates Next Due Fluzone High Dose - >Age 65 (Prefilled Syringe) 03/06/2020,05/02/2019 Influenza Adult (Generic) 05/02/2019,06/2018(Deferred: Patient Refused),02/21/2018(Deferred: Patient Refused) Pneumococcal (Pneumovax 23) 06/26/2013, 1 Pneumococcal (Prevnar 13) 05/13/2020 Pneumococcal (Prevnar 20) 10/23/2021 Td (Tenivac) preservative free 03/31/2016,2010 Tdap (Generic) 07/15/2010 Family History Medical History Relation Comments Sudden Father suicide Cancer Mother No premature coronary artery disease Other Relation Status Comments Father Mother Other Social History Tobacco Use Types Packs/Day Years Used Date Smoking Tobacco: Never Smokeless Tobacco: Never Tobacco Cessation:Counseling Given: No Alcohol Use Standard Drinks/Week Comments No 0 (1 standard drink = 0.6 oz pur e alcohol) AUDIT-C Answer Date Recorded Frequency of Alcohol Consumption Monthly or less 05/13/2018 Average Number of Drinks 1 or 2 018 Frequency of Binge Drinking Never 04/24 PHQ-2 Answer Date Recorded Patient Health Questionnaire-2 Score 0 06/16/2022 Education Answer Date Recorded What is the highest level of school you have completed or the highest degree you have received? 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 Not on file Not on file Last Filed Vital Signs Vital Sign Reading Time Taken Comments Blood Pressure 174/97 06/16/2022 1:11 PM CUSTOMER OPERATIONS MANAGER Pulse 66 06/16/2022 1:11 PM CUSTOMER OPERATIONS MANAGER Temperature 36.1 C (97 F) 06/16/2022 1:11 PM CUSTOMER OPERATIONS MANAGER Respiratory Rate 16 06/16/2022 1:11 PM CUSTOMER OPERATIONS MANAGER Oxygen Saturation 97% 06/16/2022 1:11 PM CUSTOMER OPERATIONS MANAGER Inhaled Oxygen Concentration - - Weight 79.7 kg (175 lb 9.6 oz) 06/16/2022 1:11 P M CUSTOMER OPERATIONS MANAGER Height 175.3 cm (5' 9) 06/16/2022 1:11 PM CUSTOMER OPERATIONS MANAGER Body Mass Index 25.93 06/16/2022 1:11 PM CUSTOMER OPERATIONS MANAGER Plan of Treatment Health Maintenance Due Date Last Done Comments ASCVD Statin 1940 Zoster Vaccines (1 of 2) 1990 Annual Medicare Wellness Visit 2005 RSV Immunization or 60+ Years (1 - 1-dose 75+ series) 2015 ASCVD LDL 05/19/2023 05/19/2022, 04/23, 01/11/2020, Additional history exists COVID-19 Vaccine (3 - 2023- season) 2024 01/24/2021, 12/19/2020 DTaP, Tdap and Td Vaccines (3 - Td or Tdap) 03/31/2026 03/31/2016, 07/15/2010, 07/15/2010 Pneumococcal Vaccine: 50+ Years Completed 10/23/2021, 05/13/2020, 06/26/2013, Additional history exists Meningococcal B Vaccine Aged Out No l onger eligible based on patient's age to complete this topic Meningococcal Vaccine Aged Out No akila luis e eligible based on patient's age to complete this topic RSV Immunizations Under 20 Months Aged Out No longer eligible based on patient's age to complete this topic Procedures Procedure Name Priority Date/Time Associated Diagnosis Comments LIPID PANEL Routine 05/19/2022 12:15 PM CUSTOMER OPERATIONS MANAGER Dyslipidemia from Last 3 Months or Most Recently Relevant to Health Maintenance Results * LIPID PANEL (05/19/2022 12:15 PM CUSTOMER OPERATIONS MANAGER) CHOLESTEROL 150 <200 mg/dL [facility] HDL 43 > OR = 40 mg/dL [facility] TRIGLYCERIDES 99 <150 mg/dL [facility] LDL (CALCULATED) 88 mg/dL (calc) [facility] Comment: Reference range: <100 Desirable range <100 mg/dL for primary prevention; <70 mg/dL for patients with CHD or diabetic patients with > or = 2 CHD risk factors. LDL-C is now calculated using the Cynthia calculation, which is a validated novel method providing better accuracy than the Friedewald equation in the estimation of LDL-C. Jose Cruz LEWIS et al. DANIELLE. 2013;310(34): 4682-4516 (http://education.QuestDiagnostics.eDabba/faq/LEV725) CHOL/HDL RATIO 3.5 <5.0 (calc) [facility] NON HDL CHOLESTEROL 107 <130 mg/dL (calc) [facility] Comment: For patients with diabetes plus 1 major ASCVD risk factor, treating to a non-HDL-C goal of <100 mg/dL (LDL-C of <70 mg/dL) is considered a therapeutic option. 05/19/2022 12:1 5 PM CUSTOMER OPERATIONS MANAGER 05/20/2022 6:16 AM CUSTOMER OPERATIONS MANAGER Narrative Resulting Agency Comment Performing Organization Information: Site ID: [id number] Name: [employer] [facility] Address: [address] [place] [address] Director: Hitesh Hernandez D.O., MPH us Tiffany Piedra MD LABORATORY Final Result [employer] [place] [facility] [id number] [place], [place] [address] [address] from Last 3 Months or Most Recently Relevant to Health Maintenance Insurance [employer] Care Teams Varnish Melter Relationship Specialty Start Date End Date Isac Weathers MD [address] [place] [address] PCP - General INTERNAL MEDICINE 05/24/22 Jamil Castellanos MD [facility]. [address] [address] Alma Nicker CARDIOVASCULAR DISEASE 09/29/17
--- OUTSIDE RECORDS SUMMARY | 2024-11-27 11:26 | XMS_ITS | Encounter Summary ---
Author Organization [facility] Address [facility] [place] [address] Care Team Providers Care Blood Coordinator Name Role Phone Tiffany Piedra MD Primary Care Provider + [phone] Jamil Castellanos MD Unavailable [phone] Isac Weathers MD Primary Care Provider [phone] Encounter Details Date Type Department Care Team (Late st Contact Info) Description 06/29/2018 Pre-Procedure Call [employer]amy[employer] Forms Designer [place], [place] [id number] Murali Taylor MD [facility]. [address] [address] Social History Tobacco Use Types Packs/Day Years Used Date Smoking Tobacco: Never Smokeless Tobacco: Never Alcohol Use Standard Drinks/Week Comments Yes 0 (1 standard drink = 0.6 oz pur e alcohol) AUDIT-C Answer Date Recorded Frequency of Alcohol Consumption Monthly or less 05/13/2018 Average Number of Drinks 1 or 2 018 Frequency of Binge Drinking Never 04/24 Education Answer Date Recorded What is the highest level of school you have completed or the highest degree you have received? Some college, no degree 05/13/2018 Sex and Gender Information Value Date Recorded Sex Assigned at Not on file Legal Sex Male 9:21 PM CDT Gender Identity Not on file Sexual Orientation Straight 05/13/2018 2: 41 PM FILM PRINTER Occupation Industry Job Start Date Job End Date [employer] Not on file Not on file Not on file documented as of this encounter Functional Status documented as of this encounter Mental Status * Question Answer Entry Date Author Status Because of a physical, mental, or emotional condition, do you have serious difficulty concentrating, remembering, or making decisions? No 2018 5:25 PM FILM PRINTER Denise Moon RN Active documented in this encounter Plan of Treatment Not on file documented as of this encounter Visit Diagnoses Not on filedocumented in this encounter Care Teams Blood Coordinator Relationship Specialty Start Date End Date Tiffany Piedra MD PCP - General INTERNAL MEDICINE 07/22/17 05/23/22 Isac Weathers MD [address] [place] [address] PCP - General INTERNAL MEDICINE 05/24/22 [facility] [address] [place] [id number] [address] Otr Driver CARDIOVASCULAR DISEASE 09/29/17 documented as of this encounter
--- OUTSIDE RECORDS SUMMARY | 2024-11-27 11:26 | XMS_ITS | Encounter Summary ---
Author Organization [facility] Address [address] [facility] [place] [address] Phone Care Team Providers Care Software Development Analyst Name Role Phone Flori Yeboah PAC Primary Care Pro vider Ramon Alford MD Unavailable Isac Pina MD Primary Care Provider [phone] Emma Gibson PEER TUTOR, CHEMISTRY LECTURER Unavailable + [phone] Denise White PEER TUTOR, MARINE EQUIPMENT SALES ENGINEER Unavailable + [phone] Constance Garsia PEER TUTOR, CHEMISTRY LECTURER Unavailable Christian Christian PEER TUTOR, CHEMISTRY LECTURER Unavailable [phone] Dean Sauceda MD Unavailable [phone] Reason for Visit * Reason Comments Medication Refill Encounter Details Date Type Department Care Team (Late st Contact Info) Description 11/23/2022 [facility]ill [facility] - [facility] - [place] [address] [place] [address] Jayda Layton, PAC [address] [place] [address] Medication Refill Social History Tobacco Use Types [...] encounter Miscellaneous Notes * Telephone Encounter - Ivy Loera RN - 11/23/2022 8:43 AM CDT dc'd documented in this encounter Plan of Treatment Not on file documented as of this encounter Visit Diagnoses Not on filedocumented in this encounter Additional Health Concerns Infection Onset Date Last Indicated Resolved Time COVID - 19 06/06/2023 06/06/2023 06/16/2023 12:1 6 AM ESCROW ASSISTANT RSV 06/06/2023 06/06/2023 07/04/2023 12:1 6 AM ESCROW ASSISTANT documented as of this encounter Care Teams Software Development Analyst Relationship Specialty Start Date End Date Flori Yeboah PAC [address] [place] [address] PCP - General Physician Power Operator 08/26/22 06/09/23 Isac Weathers MD [address] [place] [address] PCP - General Internal Medicine 06/10/23 Ramon Alford MD [address] [place] [address] Consulting Physician Cardiovascular Disease - Cardiology 09/14/22 04/30/24 Emma Gibson, PEER TUTOR, CHEMISTRY LECTURER [address] [facility] [address] [place] [address] Nurse Practitioner Cardiology 07/05/23 Denise White, PEER TUTOR, MARINE EQUIPMENT SALES ENGINEER [address] [place] [address] Nurse Practitioner Advanced Practice Nurse 09/25/22 Constance Garsia, PEER TUTOR, CHEMISTRY LECTURER [address] [place] [address] Nurse Practitioner Advanced Practice Nurse 12/02/22 Christian Christian, PEER TUTOR, CHEMISTRY LECTURER [address] [place] [address] Nurse Practitioner Advanced Practice Nurse 10/19/23 Dean Sauceda MD [address] [place] [address] Consulting Physician Neurology 04/28/24 documented as of this encounter
--- OUTSIDE RECORDS SUMMARY | 2024-11-27 11:26 | XMS_ITS | Encounter Summary ---
Author Organization [facility] Address [address] [place] [address] Phone Care Team Providers Care Cocoa Bean Roaster Helper Name Role Phone Ramon Alford MD Unavailable Isac Pina MD Primary Care Provider [phone] Emma Gibson COLD ROLL INSPECTOR, SUPERVISOR [facility] Unavailable + [phone] Denise White COLD ROLL INSPECTOR, MULTICULTURAL MANAGER Unavailable [phone] Constance Garsia COLD ROLL INSPECTOR, SUPERVISOR [facility] Unavailable Christian Christian COLD ROLL INSPECTOR, SUPERVISOR [facility] Unavailable [phone] Dean Sauceda MD Unavailable [phone] Reason for Visit * Reason Comments Medication Refill Encounter Details Date Type Department Care Team (Late st Contact Info) Description 10/02/2023 Refill [facility] - [facility] - [place] [address] [place] [address] Flori Yeboah, [place] [address] [place] [address] Medication Refill Social History Tobacco Use Types Packs/Day Years Used Date Smoking Tobacco: Never Passive Smoke Exposure: Never Smokeless Tobacco: Never Alcohol Use Standard Drinks/Week Comments Yes 0 (1 standard drink = 0.6 oz pur e alcohol) Occasional [facility] Utilities Answer Date Recorded In the past [...] Never 09/14/2023 How often do you attend restorationism or pentecostal serv ices? Never 09/14/2023 Do you belong to any clubs o r organizations such as restorationism groups, unions, fraternal or athletic groups, or [...] Total Score - Questions 1-9 0 06/25 [facility] of Occupat ional Health - Occupational [...] place to sleep or slept in a assisted (including now)? No 09/14/2023 Sexually Active Control Partners Comments Yes Female Sex and Gender Information Value Date Recorded Sex Assigned at Not on file Legal Sex Male 11:58 PM CDT Gender Identity Not on file Sexual Orientation Not on file documented as of this encounter Miscellaneous Notes * Telephone Encounter - Amada Martinez RN - 10/04/2023 8:26 AM CDT Medication(s) refilled and signed per [facility] Chronic Medication Refill Standing Order for Pediatricand Adult Patients. Requested Prescriptions Pending Prescriptions Disp Refills carvedilol (COREG) 3.125 MG Tablet [Pharmacy Med Name: CARVEDILOL 3.125 MG TABLET] 180 Tablet 3 Sig: TAKE 1 TABLET BY MOUTH TWICE A DAY Beta-Blockers Protocol Passed - 10/02/2023 7:42 AM Passed - BP on record in the past year Clinician-entered: BP Readings from Last 3 Encounters: 09/30/23 112/64 09/27/23 99/62 09/20/23 (!) 80/52 Patient-entered: No data recorded Passed - Visit with relevant provider in past 12 months or upcoming 90 days Recent Visits Date Type Provider Dept 09/27/23 Office Visit Edilia Flori Walker, PAC [facility] [place] 09/20/23 Office Visit Nina Yeboahalesha Walker, PAC [facility] [place] 08/17/23 Office Visit Isac Weathers MD [facility] [place] 07/14/23 Office Visit Isac Weathers MD [facility] [place] 03/17/23 Office Visit Nina Yeboahalesha Walker, PAC [facility] [place] 01/20/23 Office Visit Nina Yeboahalesha Walker, PAC [facility] [place] 12/14/22 Office Visit Edilia Flori Walker, PAC [facility] [place] 11/11/22 Office Visit Isac Weathers MD [facility] [place] 10/28/22 Office Visit Nina Yeboahalesha Walker, PAC [facility] [place] 10/12/22 Office Visit Nina Yeboahney Denise, PAC [facility] [place] Showing recent visits within past 365 days and meeting all other requirements Future Appointments Date Type Provider Dept 11/17/23 Appointment Isac Weathers MD [facility] [place] Showing future appointments within next 90 days and meeting all other requirements documented in this encounter Plan of Treatment Not on file documented as of this encounter Visit Diagnoses Not on filedocumented in this encounter Additional Health Concerns Assessment Noted Time PHQ-9 Depression Total Score: 0 07/14/19 10:17 AM POWER SYSTEM ENGINEER documented as of this encounter Care Teams Cocoa Bean Roaster Helper Relationship Specialty Start Date End Date Isac Weathers MD [address] [place] [address] PCP - General Internal Medicine 06/10/23 Ramon Alford MD Consulting Physician Cardiovascular Disease - Cardiology 09/14/22 04/30/24 Emma Gibson, COLD ROLL INSPECTOR, SUPERVISOR [facility] #2 [facility] [address] [place] [address] Nurse Practitioner Cardiology 07/05/23 Denise White, COLD ROLL INSPECTOR, MULTICULTURAL MANAGER [address] [place] [address] Nurse Practitioner Advanced Practice Nurse 09/25/22 Constance Garsia, COLD ROLL INSPECTOR, SUPERVISOR [facility] [address] [place] [address] Nurse Practitioner Advanced Practice Nurse 12/02/22 Christian Christian, COLD ROLL INSPECTOR, SUPERVISOR [facility] [address] [place] [address] Nurse Practitioner Advanced Practice Nurse 10/19/23 Dean Sauceda MD [address] [place] [id number] Consulting Physician Neurology 04/28/24 documented as of this encounter
--- OUTSIDE RECORDS SUMMARY | 2024-11-27 11:26 | XMS_ITS | Encounter Summary ---
Author Organization [facility] Address [address] [facility] [place] [address] Phone Care Team Providers Care Roller Maker Name Role Phone Flori Yeboah PAC Primary Care Pro vider Ramon Alford MD Unavailable Isac Pina MD Primary Care Provider [phone] Emma Gibson RETAIL COMMISSION SALES ASSOCIATE, CARPENTER SHIP Unavailable + [phone] Denise White RETAIL COMMISSION SALES ASSOCIATE, TOY TRAINS AND ACCESSORIES SALESPERSON Unavailable + [phone] Constance Garsia RETAIL COMMISSION SALES ASSOCIATE, CARPENTER SHIP Unavailable Christian Christian RETAIL COMMISSION SALES ASSOCIATE, CARPENTER SHIP Unavailable [phone] Dean Sauceda MD Unavailable [phone] Reason for Visit * Reason Comments Medication Refill Encounter Details Date Type Department Care Team (Late st Contact Info) Description 03/20/2023 Refill [facility] - Internal Medicine - [place] [address] [place] [address] Flori Yeboah, PAC [address] [place] [address] Medication Refill Social History Tobacco Use [...] suspected to have Coronavirus/COVID-19? No / Unsure 03/23/2023 9:10 AM CDT documented as of this encounter Miscellaneous Notes * Telephone Encounter - Amada Martinez RN - 03/23/2023 7:58 AM CDT Per nursing clinical judgement, provider to review and approve the medication(s) order(s) if appropriate. Requested Prescriptions Pending Prescriptions Disp Refills isosorbide mononitrate (IMDUR) 30 MG TABLET SR 24 HR [Pharmacy Med Name: ISOSORBIDE MONONIT ER 30 MG TB] 90 Tablet 0 Sig: TAKE 1 TABLET BY MOUTH EVERY DAY Nitrates Protocol Passed - 03/20/2023 7:37 AM Passed - Visit with relevant provider in past year or upcoming 90 days Recent Visits Date Type Provider Dept 03/17/23 Office Visit Flori Yeboah, BELGICA [facility] [place] 01/20/23 Office Visit Flori Yeboah, BEL[place] [facility] [place] 12/14/22 Office Visit Flori Yeboah, PAC [facility] [place] 11/11/22 Office Visit Isac Weathers MD [facility] [place] 10/28/22 Office Visit Flori Yeboah, BELG[place] [facility] [place] 10/12/22 Office Visit Flori Yeboah, BEL[place] [facility] [place] 09/11/22 Office Visit Flori Yeboah, [place] [facility] [place] 08/26/22 Office Visit Flori Yeboah, BELG[place] [facility] [place] Showing recent visits within past 365 days and meeting all other requirements Future Appointments No visits were found meeting these conditions. Showing future appointments within next 90 days and meeting all other requirements documented in this encounter Plan of Treatment Not on file documented as of this encounter Visit Diagnoses Not on filedocumented in this encounter Additional Health Concerns Infection Onset Date Last Indicated Resolved Time COVID - 19 06/06/2023 06/06/2023 06/16/2023 12:1 6 AM GAS STOVE SERVICER HELPER RSV 06/06/2023 06/06/2023 07/04/2023 12:1 6 AM GAS STOVE SERVICER HELPER documented as of this encounter Care Teams Roller Maker Relationship Specialty Start Date End Date Flori Yeboah PAC [address] [place] [address] PCP - General Physician Handstitching Machine Collar Feller 08/26/22 06/09/23 Isac Weathers MD [address] [place] [address] PCP - General Internal Medicine 06/10/23 Ramon Alford MD [address] [place] [address] Consulting Physician Cardiovascular Disease - Cardiology 09/14/22 04/30/24 Emma Gibson APRN, CARPENTER SHIP [address]2 [facility] [address] [place] [address] Nurse Practitioner Cardiology 07/05/23 Denise White APRN, TOY TRAINS AND ACCESSORIES SALESPERSON [address] [place] [address] Nurse Practitioner Advanced Practice Nurse 09/25/22 Constance Garsia APRN, CARPENTER SHIP [address] [place] [address] Nurse Practitioner Advanced Practice Nurse 12/02/22 Christian Christian APRN, CARPENTER SHIP [address] [place] [address] Nurse Practitioner Advanced Practice Nurse 10/19/23 Dean Sauceda MD [address] [place] [address] Consulting Physician Neurology 04/28/24 documented as of this encounter
--- OUTSIDE RECORDS SUMMARY | 2024-11-27 11:26 | XMS_ITS | Clinical Summary ---
Author Organization [facility] Address [address] [place] [address] Phone Care Team Providers Care Pbx Wire Chief Name Role Phone Isac Weathers MD Primary Care Provider Emma Gibson ENGINEERING VICE PRESIDENT, APPLICATION DEVELOPER MANAGER Unavailable + [phone] Denise White ENGINEERING VICE PRESIDENT, CAP LINING MACHINE OPERATOR Unavailable + [phone] Constance Garsia ENGINEERING VICE PRESIDENT, APPLICATION DEVELOPER MANAGER Unavailable Christian Christian ENGINEERING VICE PRESIDENT, APPLICATION DEVELOPER MANAGER Unavailable [phone] Dean Sauceda MD Unavailable [phone] Allergies No known active allergies Medications aspirin 81 MG Chewable Tablet Take 81 mg by mouth daily. Active montelukast (SINGULAIR) 10 MG Tablet Take 10 mg by mouth every evening. 4 Active carvedilol (COREG) 3.125 MG Tablet TAKE 1 TABLET BY MOUTH TWICE A DAY 180 Tablet 3 4 Active alfuzosin (UROXATRAL) 10 MG TABLET SR 24 HRIndications:Be nign prostatic hyperplasia with urinary hesitancy Take 1 Tablet by mouth daily (with breakfast). 90 Tablet 1 4 Active clopidogrel (PLAVIX) 75 MG Tablet TAKE 1 TABLET BY MOUTH EVERY DAY 90 Tablet 2 4 Active diphenoxylate-at ropine (LOMOTIL) 2.5-0.025 MG Tablet Take 1 Tablet by mouth 4 times daily as needed. 3 Active Empagliflozin (Jardiance) 10 MG Tablet Take 10 mg by mouth daily. 4 Active Ascorbic Acid (VITAMIN C PO) Take by mouth. Active Cholecalciferol (VITAMIN D-3 PO) Take by mouth. Active glucosamine-pastora droitin 500-400 MG Capsule Take 2 Capsules by mouth 3 times daily. Active Cetirizine HCl (ZYRTEC ALLERGY PO) Take by mouth. Active atorvastatin (LIPITOR) 40 MG Tablet TAKE 1 TABLET BY MOUTH EVERY DAY AT NIGHT 90 Tablet 4 Active lisinopril (PRINIVIL, ZESTRIL) 5 MG Tablet TAKE 1 TABLET BY MOUTH EVERY DAY 90 Tablet 1 4 Active isosorbide mononitrate (IMDUR) 30 MG TABLET SR 24 HR TAKE 1 TABLET BY MOUTH EVERY DAY 90 Tablet 5 Active furosemide (LASIX) 40 MG Tablet Take 0.5 Tablets by mouth daily. 90 Tablet 1 5 Active spironolactone (ALDACTONE) 25 MG Tablet Take 1 Tablet by mouth daily. 90 Tablet 1 5 Active esomeprazole (NexIUM) 20 MG CAPSULE DELAYED RELEASE Take 1 Capsule by mouth daily. 90 Capsule 1 5 Active Active Problems Problem Noted Date Diagnosed Date Dorsalgia 05/31/2024 BPH with obstruction/lower urinary tract symptom s 09/15/2023 Chronic diastolic CHF (congestive heart failure) 09/15/2023 Other hyperlipidemia 08/26/2022 Gastroesophageal reflux disease without esophagi tis 08/26/2022 H/O heart artery stent 08/26/2022 Overview (03/17/2023): Dr Castellanos Rx Isosorbide Ankylosing spondylitis 08/26/2022 Overview (08/26/2022): spine CVA (cerebral vascular accident) 08/11/2022 Overview (08/26/2022): Dr Sauceda Essential hypertension, benign Coronary artery disease invo lving cabazon coronary artery of cabazon heart without angina pectoris Resolved Problems Problem Noted Date Diagnosed Date Resolved Date COPD exacerbation 09/15/2023 11/17/2023 CHF exacerbation 09/15/2023 11/17/2023 Constipation 08/26/2022 07/14/2023 Asymptomatic bacteriuria Encounters Date Type Department Care Team Description 08/30/2024 8:45 AM CDT Office Visit [facility] - Internal Medicine - [place] [address] [place] [address] Isac Weathers MD Chronic diastolic CHF (congestive heart failure) (HCC) (Primary Dx); Essential hypertension, benign; Coronary artery disease involving cabazon coronary artery of cabazon heart without angina pectoris; Gastroesophageal reflux disease without esophagitis; BPH with obstruction/lower urinary tract symptoms Discharge Disposition: Discharged to home or Selfcare 08/30/2024 Travel from Last 3 Months Immunizations Immunization Administration Dates Next Due Influenza Vaccine,unspecified Formulation 2018 Influenza, High-dose, Quadrivalent 03/06/2020, Influenza, Quadrivalent, Adjuvanted 03/17/2023 Influenza, Trivalent, Adjuvanted, PF 02/21/2024 Influenza, high-dose, trivalent, PF 03/06/2020,1 07/03/2018 Pneumococcal Vaccine - 13 Valent 05/13/2020 Pneumococcal Vaccine Adult - 23 Valent 4,07/15/2010 Pneumococcal conjugate PCV20 , polysaccharide [id number] conjugate, adjuvant, PF 10/23/2021 TD VACCINE 03/31/2016 TDAP Vaccine 07/15/2010 Td Vaccine (preservative free) 03/31/2016,2010 Family History Medical History Relation Name Comments No Known Problems Father Cancer Maternal Aunt Cancer Maternal Uncle Cancer Mother Relation Name Status Comments Father Maternal Aunt Maternal Uncle Mother Social History Tobacco Use Types Packs/Day Years Used Date Smoking Tobacco: Never Passive Smoke Exposure: Never Smokeless Tobacco: Never Tobacco Cessation:Counseling Given: No Alcohol Use Standard Drinks/Week Comments Yes 0 (1 standard drink = 0.6 oz pur e alcohol) Occasional [facility] Utilities Answer Date Recorded In the past 12 months has e electric, gas, oil, or water company threatened to shut off services in your home? No 09/14/2023 Social Connection and Isolation Panel Answer Date Recorded In a typical week, how many times do you talk on the phone with family, friends, or neighbors? Never 09/14/2023 How often do you get togethe r with friends or relatives? Never 09/14/2023 How often do you attend yarsanism or jew serv ices? Never 09/14/2023 Do you belong to any clubs o r organizations such as yarsanism groups, unions, fraternal or athletic groups, or [...] Recorded Total Score - Questions 1-9 0 12/2024 [facility] of Occupat ional Health - Occupational Stress [...] place to sleep or slept in a senior care (including now)? No 09/14/2023 Sexually Active Control Partners Comments Yes Female Sex and Gender Information Value Date Recorded Sex Assigned at Not on file Legal Sex Male 11:58 PM CDT Gender Identity Not on file Sexual Orientation Not on file Last Filed Vital Signs Vital Sign Reading Time Taken Comments Blood Pressure 118/62 08/30/2024 8:33 AM CDT Pulse 82 08/30/2024 8:33 AM CDT Temperature 36.5 C (97.7 F) 08/30/2024 8:33 AM CDT Respiratory Rate 18 04/27/2024 1:42 PM FACILITY MAINTENANCE MANAGER Oxygen Saturation 94% 08/30/2024 8:33 AM CDT Inhaled Oxygen Concentration - - Weight 71.7 kg (158 lb) 08/30/2024 8:33 AM CDT Height 175.3 cm (5' 9) 08/30/2024 8:33 AM CDT Body Mass Index 23.33 08/30/2024 8:33 AM CDT Plan of Treatment Health Maintenance Due Date Last Done Comments Hepatitis C Virus (HCV) Screening 1940 Zoster Immunization (1 of 2) 1990 Respiratory Syncytial Virus (RSV) Immunization (Adult) (1 - 1-dose 75+ series) 2015 SARS-COV-2 Immunization ( season) 2024 01/24/2021, 12/19/2020 Influenza Immunization (#1) 01/22/202501/24, 03/17/2023, 03/06/2020, Additional history exists Td Immunization Every 10 Years (Adults With 1 Tdap) 03/31/2026 03/31/2016, 03/31/2016, 07/15/2010, Additional history exists DTaP/Tdap/Td Immunization Discontinued 2015, 03/31/2016, 07/15/2010, Additional history exists Pneumococcal Immunization (50+ years) Completed 10/23/2021, 05/13/2020, 06/26/2013, Additional history exists Hepatitis B Immunization Aged Out No longer eligible based on patient's age to complete this topic Human Papillomavirus (HPV) Immunization Aged Out No longer eligible based on patient's age to complete this topic Meningococcal Immunization (ACWY) Aged Out No longer eligible based on patient's age to complete this topic Rotavirus Immunization Aged Out No lo nger eligible based on patient's age to complete this topic Insurance MEDICARE C ESSENCE Advance Directives Documents on File Type Date Recorded Patient Hospice Spiritual Care Coordinator Expl anation Power of Secretary To The Vice President for Health Care 09/15/2023 10:13 AM Roseline Rosa POA-HC, 09/14/2023 Power of Secretary To The Vice President for Health Care 09/14/2023 1:47 PM POA-HC, 09/14/2023 Power of Secretary To The Vice President for Health Care 11/16/2022 10:27 AM POA-HC, 11/16/2022 * No CPR-Selective Treatment (Latest Code Status on File) Date Activated Date Inactivated Comments 09/14/2023 9:49 AM 09/15/2023 6:25 PM No CPR - Fariba ective Treatment: FULL ARREST: Do Not Attempt Resuscitation. PRE-ARREST: DO NOT USE INTUBATION OR MECHANICAL VENTILATION, but may use basic medical treatment like CPAP or BiPAP, antibiotics, IV fluids, oxygen, etc. Avoid care in ICU setting. Question Answer Comments Physician documentation made in notes? Yes * Full Code Date Activated Date Inactivated Comments 09/14/2023 5:46 AM 09/14/2023 9:49 AM CPR-Full Broderick atment: FULL ARREST: Attempt Resuscitation/CPR wit intubation and mechanical ventilation. PRE-ARREST: Use entire range of life support measures to stabilize the patient. * Full Code Date Activated Date Inactivated Comments 08/11/2022 5:43 PM 08/12/2022 2:44 PM CPR-Full Broderick atment: FULL ARREST: Attempt Resuscitation/CPR wit intubation and mechanical ventilation. PRE-ARREST: Use entire range of life support measures to stabilize the patient. Healthcare Agents on File Name Relationship Healthcare Agent [facility] Communication [facility] Care Teams Pbx Wire Chief Relationship Specialty Start Date End Date Isac Weathers MD [address] [place] [address] PCP - General Internal Medicine 06/10/23 Emma Gibson APRN, APPLICATION DEVELOPER MANAGER [address]2 [facility], [address] [place] [address] Nurse Practitioner Cardiology 07/05/23 Denise White APRN, CAP LINING MACHINE OPERATOR [address] [place] [address] Nurse Practitioner Advanced Practice Nurse 09/25/22 Constance Garsia APRN, APPLICATION DEVELOPER MANAGER [address] [place] [address] Nurse Practitioner Advanced Practice Nurse 12/02/22 Christian Christian APRN, ERIC [address] [place] [address] Nurse Practitioner Advanced Practice Nurse 10/19/23 Dean Sauceda MD [address] [place] [id number] Consulting Physician Neurology 04/28/24
--- OUTSIDE RECORDS SUMMARY | 2024-11-27 11:26 | XMS_ITS | Encounter Summary ---
Author Organization [facility] Address [address] [facility] [place] [address] Phone Care Team Providers Care Coordinator Of Library Services Name Role Phone Floir Yeboah PAC Primary Care Pro vider Ramon Alford MD Unavailable UnaIsac Stubbs MD Primary Care Provider [phone] Emma Gibson POTATO SORTER, BOAT OUTFITTER Unavailable + [phone] Denise White POTATO SORTER, SUPERVISOR PROCESS TESTING Unavailable + [phone] Constance Garsia POTATO SORTER, BOAT OUTFITTER Unavailable Christian Christian POTATO SORTER, BOAT OUTFITTER Unavailable [phone] Dean Sauceda MD Unavailable +[phone] Reason for Visit * Reason Comments Medication Refill Encounter Details Date Type Department Care Team (Late st Contact Info) Description 09/23/2022 Refill [facility] - [facility] - [place] [address] [place] [address] Isac Weathers MD [address] [place] [address] Medication Refill Social History Tobacco Use [...] PM CDT documented as of this encounter Miscellaneous Notes * Telephone Encounter - Amada Martinez RN - 09/23/2022 10:08 AM CDT Medication failed the protocol, provider to review and approve the medication order if appropriate. Requested Prescriptions Pending Prescriptions Disp Refills celecoxib (CeleBREX) 200 MG Capsule [Pharmacy Med Name: CELECOXIB 200 MG CAPSULE] 30 Capsule 0 Sig: TAKE 1 CAPSULE BY MOUTH EVERY DAY BEFORE BREAKFAST NSAIDs Protocol Failed - 09/23/2022 9:05 AM Failed - Not delegated, patient not between 1 and 65 years of age Failed - No matching NSAID med order in past 45 days Matching medication order placed on 08/24/2022 7:21 AM Order [id number]: celecoxib (CeleBREX) 200 MG Capsule (For orders placed between 08/09/2022 10:08 AM and 09/23/2022 10:08 AM) Passed - Normal serum creatinine in past 12 months CREATININE, BLOOD Date Value Ref Range Status 08/19/2022 1.04 0.80 - 1.30 mg/dL Final Passed - Visit with relevant provider in past 12 months or upcoming 90 days Recent Visits Date Type Provider Dept 09/11/22 Office Visit Flori Yeboah PAC [facility] [place] 08/26/22 Office Visit Flori Yeboah PAC [facility] [place] Showing recent visits within past 365 days and meeting all other requirements Future Appointments Date Type Provider Dept 10/12/22 Appointment Flori Yeboah PAC [facility] [place] Showing future appointments within next 90 days and meeting all other requirements Passed - AST less than 55 or ALT less than 90 in past 12 months SGOT (AST) Date Value Ref Range Status 08/11/2022 27 <=40 U/L Final SGPT (ALT) Date Value Ref Range Status 08/11/2022 16 <=41 U/L Final Passed - HGB greater than 10 or HCT greater than 30 in past 12 months HEMOGLOBIN (HGB) Date Value Ref Range Status 08/13/2022 14.0 13.0 - 16.5 g/dL Final HEMATOCRIT (HCT) Date Value Ref Range Status 08/13/2022 40.5 38.0 - 50.0 % Final documented in this encounter Plan of Treatment Not on file documented as of this encounter Visit Diagnoses Not on filedocumented in this encounter Additional Health Concerns Infection Onset Date Last Indicated Resolved Time C. difficile Rule-Out 10/28/2022 10/28/20222022 6:05 PM CDT COVID - 19 06/06/2023 06/06/2023 06/16/2023 12:1 6 AM ACCOUNT MANAGEMENT ASSISTANT RSV 06/06/2023 06/06/2023 07/04/2023 12:1 6 AM ACCOUNT MANAGEMENT ASSISTANT documented as of this encounter Care Teams Coordinator Of Library Services Relationship Specialty Start Date End Date Flori Yeboah PAC [address] [place] [address] PCP - General Physician Oral And Maxillofacial Surgery 08/26/22 06/09/23 Isac Weathers MD [address] [place] [address] PCP - General Internal Medicine 06/10/23 Ramon Alford MD [address] [place] [address] Consulting Physician Cardiovascular Disease - Cardiology 09/14/22 04/30/24 Emma Gibson, POTATO SORTER, BOAT OUTFITTER [address] [facility], [address] [place] [address] Nurse Practitioner Cardiology 07/05/23 Denise White APRN, SUPERVISOR PROCESS TESTING [address] [place] [address] Nurse Practitioner Advanced Practice Nurse 09/25/22 Constance Garsia APRN, BOAT OUTFITTER [address] [place] [address] Nurse Practitioner Advanced Practice Nurse 12/02/22 Christian Christian APRN, BOAT OUTFITTER [address] [place] [address] Nurse Practitioner Advanced Practice Nurse 10/19/23 Dean Sauceda MD [address] [place] [address] Consulting Physician Neurology 04/28/24 documented as of this encounter
--- OUTSIDE RECORDS SUMMARY | 2024-11-27 11:26 | XMS_ITS | Encounter Summary ---
Author Organization [facility] Address [address] [facility] [place] [address] Phone Care Team Providers Care Chemist Organic Name Role Phone Flori Yeboah PAC Primary Care Pro vider Ramon Alford MD Unavailable Isac Pina MD Primary Care Provider [phone] Emma Gibson PIE BOTTOMER, FINAL INSPECTOR BALANCE WHEEL Unavailable + [phone] Denise White PIE BOTTOMER, COMPLEX CARE NURSE Unavailable + [phone] Constance Garsia PIE BOTTOMER, FINAL INSPECTOR BALANCE WHEEL Unavailable Christian Christian PIE BOTTOMER, FINAL INSPECTOR BALANCE WHEEL Unavailable +[phone] Dean Sauceda MD Unavailable +[phone] Reason for Visit * Reason Comments Medication Refill Encounter Details Date Type Department Care Team (Late st Contact Info) Description 05/01/2023 Refill [facility] Medical/Surgical Intensive Care [address] [place] [address] Flori Yeboah, PAC [address] [place] [address] Medication Refill Social History Tobacco Use [...] Telephone Encounter - Amada Martinez RN - 05/03/2023 10:42 AM CST Per nursing clinical judgement, provider to review and approve the medication(s) order(s) if appropriate. Requested Prescriptions Pending Prescriptions Disp Refills lisinopril (PRINIVIL, ZESTRIL) 10 MG Tablet [Pharmacy Med Name: LISINOPRIL 10 MG TABLET] 90 Tablet 0 Sig: TAKE 1 TABLET BY MOUTH EVERY DAY There is no refill protocol information for this order ECTOR WATCH TRAIN documented in this encounter Plan of Treatment Not on file documented as of this encounter Visit Diagnoses Not on filedocumented in this encounter Additional Health Concerns Infection Onset Date Last Indicated Resolved Time COVID - 19 06/06/2023 06/06/2023 06/16/2023 12:1 6 AM INSPECTOR WATCH TRAIN RSV 06/06/2023 06/06/2023 07/04/2023 12:1 6 AM INSPECTOR WATCH TRAIN documented as of this encounter Care Teams Chemist Organic Relationship Specialty Start Date End Date Flori Yeboah PAC [address] [place] [address] PCP - General Physician Requirements Manager 08/26/22 06/09/23 Isac Weathers MD [address] [place] [address] PCP - General Internal Medicine 06/10/23 Ramon Alford MD [address] [place] [address] Consulting Physician Cardiovascular Disease - Cardiology 09/14/22 04/30/24 Emma Gibson, PIE BOTTOMER, FINAL INSPECTOR BALANCE WHEEL [address] [address] Nurse Practitioner Cardiology 07/05/23 Denise White PIE BOTTOMER, COMPLEX CARE NURSE [address] [place] [address] Nurse Practitioner Advanced Practice Nurse 09/25/22 Constance Garsia PIE BOTTOMER, FINAL INSPECTOR BALANCE WHEEL [address] [place] [address] Nurse Practitioner Advanced Practice Nurse 12/02/22 Christian Christian PIE BOTTOMER, FINAL INSPECTOR BALANCE WHEEL [address] [place] [address] Nurse Practitioner Advanced Practice Nurse 10/19/23 Dean Sauceda MD [address] [place] [address] Consulting Physician Neurology 04/28/24 documented as of this encounter
--- OUTSIDE RECORDS SUMMARY | 2024-11-27 11:26 | XMS_ITS | Encounter Summary ---
Author Organization [facility] Address [address] [facility] [place] [address] Phone Care Team Providers Care Pipe Testing Technician Name Role Phone Ramon Alford MD Unavailable Isac Pina MD Primary Care Provider [phone] Emma Gibson AUDIO/VISUAL OPERATOR, LOG HAUL CHAIN FEEDER Unavailable + [phone] Denise White AUDIO/VISUAL OPERATOR, VEHICLE SALES PROFESSIONAL Unavailable +- [phone] Constance Garsia AUDIO/VISUAL OPERATOR, LOG HAUL CHAIN FEEDER Unavailable Christian Christian AUDIO/VISUAL OPERATOR, LOG HAUL CHAIN FEEDER Unavailable +[phone] Dean Sauceda MD Unavailable +[phone] Reason for Visit * Reason Comments Medication Refill Encounter Details Date Type Department Care Team (Late st Contact Info) Description 10/23/2023 Refill [facility] - Internal [facility] - [place] [address] [place] [address] Flori Yeboah PAC [address] [place] [address] Medication Refill Social History Tobacco Use Types Packs/Day Years Used Date Smoking Tobacco: Never Passive Smoke Exposure: Never Smokeless Tobacco: Never Alcohol Use Standard Drinks/Week Comments Yes 0 (1 standard drink = 0.6 oz pur e alcohol) Occasional [facility] Utilities Answer Date Recorded In the past [...] Never 09/14/2023 How often do you attend baptist or methodist serv ices? Never 09/14/2023 Do you belong to any clubs o r organizations such as baptist groups, unions, fraternal or athletic groups, or [...] Total Score - Questions 1-9 0 06/25 [facility] - Occupational Stress [...] place to sleep or slept in a longterm (including now)? No 09/14/2023 Sexually Active Control Partners Comments Yes Female Sex and Gender Information Value Date Recorded Sex Assigned at Not on file Legal Sex Male 11:58 PM CDT Gender Identity Not on file Sexual Orientation Not on file documented as of this encounter Miscellaneous Notes * Telephone Encounter - Amada Martinez RN - 10/25/2023 9:14 AM CDT Medication(s) refilled and signed per [facility] Chronic Medication Refill Standing Order for Pediatricand Adult Patients. Requested Prescriptions Pending Prescriptions Disp Refills isosorbide mononitrate (IMDUR) 30 MG TABLET SR 24 HR [Pharmacy Med Name: ISOSORBIDE MONONIT ER 30 MG TB] 90 Tablet 0 Sig: TAKE 1 TABLET BY MOUTH EVERY DAY Nitrates Protocol Passed - 10/23/2023 7:34 AM Passed - Visit with relevant provider in past year or upcoming 90 days Recent Visits Date Type Provider Dept 09/27/23 Office Visit Flori Yeboah, [place] [facility] [place] 09/20/23 Office Visit Flori Yeboah, PAC [facility] [place] 08/17/23 Office Visit Isac Weathers, [facility] [place] 07/14/23 Office Visit Isac Weathers, [facility] [place] 03/17/23 Office Visit Nina Yeboahalesha Walker, PAC [facility] [place] 01/20/23 Office Visit EdiliaFlori sarah, PAC [facility] [place] 12/14/22 Office Visit EdiliaFlori sarah, PAC [facility] [place] 11/11/22 Office Visit sIac Weathers MD [facility] [place] 10/28/22 Office Visit Edilia Flori Walker, PAC [facility] [place] Showing recent visits within past 365 days and meeting all other requirements Future Appointments Date Type Provider Dept 11/17/23 Appointment Isac Weathers MD [facility] [place] Showing future appointments within next 90 days and meeting all other requirements documented in this encounter Plan of Treatment Not on file documented as of this encounter Visit Diagnoses Not on filedocumented in this encounter Additional Health Concerns Assessment Noted Time PHQ-9 Depression Total Score: 0 07/14/19 10:17 AM CEMENT TRUCK DRIVER documented as of this encounter Care Teams Pipe Testing Technician Relationship Specialty Start Date End Date Isac Weathers MD [address] [place] [address] PCP - General Internal Medicine 06/10/23 Ramon Alford MD Consulting Physician Cardiovascular Disease - Cardiology 09/14/22 04/30/24 Emma Gibson APRN, LOG HAUL CHAIN FEEDER [address] [address] [place] [address] Nurse Practitioner Cardiology 07/05/23 Denise White APRN, VEHICLE SALES PROFESSIONAL [address] [place] [address] Nurse Practitioner Advanced Practice Nurse 09/25/22 Constance Garsia APRN, LOG HAUL CHAIN FEEDER [address] [place] [address] Nurse Practitioner Advanced Practice Nurse 12/02/22 Christian Christian APRN, LOG HAUL CHAIN FEEDER [address] [place] [address] Nurse Practitioner Advanced Practice Nurse 10/19/23 Dean Sauceda MD [address] [place] [address] Consulting Physician Neurology 04/28/24 documented as of this encounter
--- OUTSIDE RECORDS SUMMARY | 2024-11-27 11:26 | XMS_ITS | Referral Summary ---
Author Organization [facility] [address] [facility] Address [address] [place] [address] Care Team Providers Care Textile Worker Name Role Phone Faraz Burch MD Unavailable [phone] Isac Weathers MD Primary Care Provider [phone] Allergies No known active allergies Medications methylsulfonylme vidal 1,000 mg tablet Take by mouth Active [id number] -calcium-mins 18 mg iron-400 mcg-450 mg Ca [...] 07/14 Assessment & Plan (07/14/2022 5:17 PM OVERNIGHT CASHIER): 82-year-old gentleman who is a new patient to me. His previous primary care physician is retiring. Is seeing a physician in [place]. Patient's no acute distress he communicates well he has no evidence of dementia. 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 Dizziness 07/14/2022 Assessment & Plan (07/14/2022 5:19 PM OVERNIGHT CASHIER): Patient is 82 years old he describes [...] stenosis Assessment & Plan (07/14/2022 5:18 PM OVERNIGHT CASHIER): Patient advised me he is a history of spinal stenosis he does not associated in his symptoms presently with this diagnosis Atopic rhinitis 04/06/2013 Overview (08/26/2016): Allergic rhinitis Cataract of both eyes 04/06/2013 Overview (08/26/2016): Cataracts, bilateral Generalized osteoarthritis 04/06/2013 Overview (08/28/2016): Osteoarthritis, generalized Assessment & Plan (07/14/2022 5:20 PM OVERNIGHT CASHIER): Patient describes having osteoarthritis for knees and hips in the past not active problem at this time 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 Recurrent coronary arteriosc lerosis after percutaneous transluminal coronary angioplasty 04/06/2013 Overview (08/27/2016): CAD S/P percutaneous coronary angioplasty Benign prostatic hyperplasia 04/06/2013 Overview (08/27/2016): BPH (benign prostatic hypertrophy) Assessment & Plan (07/14/2022 5:18 PM OVERNIGHT CASHIER): Patient is asymptomatic discussed why we do [...] Overview (08/27/2016): Erectile dysfunction Coronary arteriosclerosis in [place] artery 07/15 Overview (08/27/2016): CRNRY ATHRSCL NATVE VSSL Assessment & Plan (07/14/2022 5:17 PM OVERNIGHT CASHIER): Patient's stents placement approximate 9 years ago he is asymptomatic does use isosorbide Immunizations Immunization Administration Dates Next Due Influenza, Trivalent, High D ose, Split, Preservative Free, Intramuscular 05/02/2019 Pneumococcal Polysaccharide PPV23 07/15/2010 TD Preservative Free 07/15/2010 Social History Tobacco Use Types Packs/Day Years [...] on file Legal Sex Male 12:31 AM OVERNIGHT CASHIER Gender Identity Not on file Sexual Orientation Not on file Last Filed Vital Signs Vital Sign Reading Time Taken Comments Blood Pressure 103/58 11/12/2023 9:31 AM CDT Pulse 68 11/12/2023 9:31 AM CDT Temperature 36.3 C (97.3 F) 07/14/2022 12:59 PM OVERNIGHT CASHIER Respiratory Rate 18 11/12/2023 9:31 AM CDT Oxygen Saturation 96% 11/12/2023 9:31 AM CDT Inhaled Oxygen Concentration - - Weight 73.5 kg (162 lb) 11/12/2023 9:31 AM CDT Height 175.3 cm (5' 9) 11/12/2023 9:31 AM CDT Body Mass Index 23.92 11/12/2023 9:31 AM CDT Plan of Treatment Not on file Insurance [facility] Advance Directives For more information, please contact: [phone] Documents on File Type Date Recorded Patient Lean Coach Expl anation ADVANCE DIRECTIVE 05/08/2019 8:14 AM Care Teams Textile Worker Relationship Specialty Start Date End Date Faraz Burch MD [address] [place] [address] PCP - [facility] Attributed PCP 04/23/19 Isac Weathers MD [address] [place] [address] PCP - General Internal Medicine 11/02/22
--- OUTSIDE RECORDS SUMMARY | 2024-11-27 11:26 | XMS_ITS | Encounter Summary ---
Author Organization [facility] Address [address] [facility] [place] [address] Phone Care Team Providers Care Electric Organ Assembler Name Role Phone Flori Yeboah PAC Primary Care Pro vider Ramon Alford MD Unavailable Isac Pina MD Primary Care Provider [phone] Emma Gibson FRUIT BAR MAKER, EXTRUSION DIE CORRECTOR Unavailable + [phone] Denise White FRUIT BAR MAKER, CHAMFERING MACHINE OPERATOR Unavailable + [phone] Constance Garsia FRUIT BAR MAKER, EXTRUSION DIE CORRECTOR Unavailable Christian Christian FRUIT BAR MAKER, EXTRUSION DIE CORRECTOR Unavailable +[phone] Dean Sauceda MD Unavailable +[phone] Reason for Visit * Reason Comments Medication Refill Encounter Details Date Type Department Care Team (Late st Contact Info) Description 11/17/2022 Refill [facility] Medical/Surgical Intensive Care [address] [place] [address] Isac Weathers MD [address] [place] [address] Medication Refill Social History Tobacco Use [...] 19 06/06/2023 06/06/2023 06/16/2023 12:1 6 AM DUMPER MOLD CLEANER RSV 06/06/2023 06/06/2023 07/04/2023 12:1 6 AM DUMPER MOLD CLEANER documented as of this encounter Care Teams Electric Organ Assembler Relationship Specialty Start Date End Date Flori Yeboah PAC [address] [place] [place] [address] PCP - General Physician Motor And Controls Tester 08/26/22 06/09/23 Isac Weathers MD [address] [place] [address] PCP - General Internal Medicine 06/10/23 Ramon Alford MD [address] [place] [address] Consulting Physician Cardiovascular Disease - Cardiology 09/14/22 04/30/24 Emma Gibson APRN, EXTRUSION DIE CORRECTOR [address] [facility] [address] [place] [address] Nurse Practitioner Cardiology 07/05/23 Denise White APRN, CHAMFERING MACHINE OPERATOR [address] [place] [address] Nurse Practitioner Advanced Practice Nurse 09/25/22 Constance Garsia APRN, EXTRUSION DIE CORRECTOR #[address] [place] [address] Nurse Practitioner Advanced Practice Nurse 12/02/22 Christian Christian APRN, EXTRUSION DIE CORRECTOR [address] [place] [address] Nurse Practitioner Advanced Practice Nurse 10/19/23 Dean Sauceda MD [address] [place] [address] Consulting Physician Neurology 04/28/24 documented as of this encounter
--- OUTSIDE RECORDS SUMMARY | 2024-11-27 11:26 | XMS_ITS | Encounter Summary ---
Author Organization [facility] Address [address] [facility] [place] [address] Phone Care Team Providers Care Rubber And Pounder Name Role Phone Flori Yeboah PAC Primary Care Pro vider Ramon Alford MD Unavailable UnaIsac Stubbs MD Primary Care Provider [phone] Emma Gibson WOOD DOWEL MACHINE OPERATOR, HEAVY DUTY MECHANIC FARM EQUIPMENT Unavailable + [phone] Denise White WOOD DOWEL MACHINE OPERATOR, DBAS Unavailable + [phone] Constance Garsia WOOD DOWEL MACHINE OPERATOR, HEAVY DUTY MECHANIC FARM EQUIPMENT Unavailable Christian Christian WOOD DOWEL MACHINE OPERATOR, HEAVY DUTY MECHANIC FARM EQUIPMENT Unavailable +[phone] Dean Sauceda MD Unavailable +[phone] Reason for Visit * Reason Comments Medication Refill Encounter Details Date Type Department Care Team (Late st Contact Info) Description 09/28/2022 Refill [facility] - [place] [address] [place] [address] Isac Weathers MD [address] [place] [address] Medication Refill Social History Tobacco Use [...] suspected to have Coronavirus/COVID-19? No / Unsure 10/01/2022 9:32 AM CDT documented as of this encounter Miscellaneous Notes * Telephone Encounter - Amada Martinez RN - 09/28/2022 11:21 AM CDT IMDUR Rx by historical provider do you want to refill? Per nursing clinical judgement, provider to review and approve the medication(s) order(s) if appropriate. Requested Prescriptions Pending Prescriptions Disp Refills isosorbide mononitrate (IMDUR) 30 MG TABLET SR 24 HR [Pharmacy Med Name: ISOSORBIDE MONONIT ER 30 MG TB] 90 Tablet 0 Sig: TAKE 1 TABLET BY MOUTH EVERY DAY Nitrates Protocol Passed - 09/28/2022 10:45 AM Passed - Visit with relevant provider in past year or upcoming 90 days Recent Visits Date Type Provider Dept 09/11/22 Office Visit Flori Yeboah PAC [facility] [place] 08/26/22 Office Visit Flori Yeboah PAC [facility] [place] Showing recent visits within past 365 days and meeting all other requirements Future Appointments Date Type Provider Dept 10/12/22 Appointment Flori Yeboah PAC [facility] [place] Showing future appointments within next 90 days and meeting all other requirements pantoprazole (PROTONIX) 40 MG Tablet Delayed Response [Pharmacy Med Name: PANTOPRAZOLE SOD DR 40 MGTAB] 30 Tablet 0 Sig: TAKE 1 TABLET BY MOUTH DAILY. INDICATIONS: GASTROESOPHAGEAL REFLUX DISEASE WITH CURRENT SYMPTOMS Proton Pump Inhibitors Protocol Failed - 09/28/2022 10:45 AM Failed - Active on medication list Passed - Visit with relevant provider in past 12 months or upcoming 90 days Recent Visits Date Type Provider Dept 09/11/22 Office Visit Flori Yeboah, BEL[place] [facility] [place] 08/26/22 Office Visit Flori Yeboah, [facility] [place] Showing recent visits within past 365 days and meeting all other requirements Future Appointments Date Type Provider Dept 10/12/22 Appointment Flori Yeboah, [place] [place] Showing future appointments within next 90 days and meeting all other requirements documented in this encounter Plan of Treatment Not on file documented as of this encounter Visit Diagnoses Not on filedocumented in this encounter Additional Health Concerns Infection Onset Date Last Indicated Resolved Time C. difficile Rule-Out 10/28/2022 10/28/20222022 6:05 PM CDT COVID - 19 06/06/2023 06/06/2023 06/16/2023 12:1 6 AM MENTAL HEALTH WORKER RSV 06/06/2023 06/06/2023 07/04/2023 12:1 6 AM MENTAL HEALTH WORKER documented as of this encounter Care Teams Rubber And Pounder Relationship Specialty Start Date End Date Flori Yeboah PAC [address] [place] [address] PCP - General Physician Director Translational 08/26/22 06/09/23 Isac Weathers MD [address] [place] [address] PCP - General Internal Medicine 06/10/23 Ramon Alford MD [address] [place] [address] Consulting Physician Cardiovascular Disease - Cardiology 09/14/22 04/30/24 Emma Gibson, WOOD DOWEL MACHINE OPERATOR, HEAVY DUTY MECHANIC FARM EQUIPMENT #2 [facility], [address] [place] [address] Nurse Practitioner Cardiology 07/05/23 Denise White APRN, DBAS [address] [place] [address] Nurse Practitioner Advanced Practice Nurse 09/25/22 Constance Garsia APRN, HEAVY DUTY MECHANIC FARM EQUIPMENT #[address] [place] [address] Nurse Practitioner Advanced Practice Nurse 12/02/22 Christian Christian APRN, HEAVY DUTY MECHANIC FARM EQUIPMENT [address] [place] [address] Nurse Practitioner Advanced Practice Nurse 10/19/23 Dean Sauceda MD [address] [place] [address] Consulting Physician Neurology 04/28/24 documented as of this encounter
--- OUTSIDE RECORDS SUMMARY | 2024-11-27 11:26 | XMS_ITS | Encounter Summary ---
Author Organization [facility] Address [address] [place] [facility] [place] [address] Phone Care Team Providers Care Sculpture Instructor Name Role Phone Flori Yeboah PAC Primary Care Pro vider Ramon Alford MD Unavailable Isac Pina MD Primary Care Provider [phone] Emma Gibson K9 HANDLER, TAX COMPLIANCE OFFICER Unavailable + [phone] Denise White K9 HANDLER, STRATEGIC BUSINESS DEVELOPMENT Unavailable + [phone] Constance Garsia K9 HANDLER, TAX COMPLIANCE OFFICER Unavailable Christian Christian K9 HANDLER, TAX COMPLIANCE OFFICER Unavailable +[phone] Dean Sauceda MD Unavailable +[phone] Reason for Visit * Reason Comments Medication Refill Encounter Details Date Type Department Care Team (Late st Contact Info) Description 10/28/2022 [facility]ill [facility] - [place] [address] [place] [address] Flori Yeboah, PAC [address] [place] [address] Medication Refill Social History Tobacco Use [...] Telephone Encounter - Amada Martinez RN - 11/03/2022 2:27 PM CDT Per nursing clinical judgement, provider to review and approve the medication(s) order(s) if appropriate. Requested Prescriptions Pending Prescriptions Disp Refills pantoprazole (PROTONIX) 40 MG Tablet Delayed Response [Pharmacy Med Name: PANTOPRAZOLE SOD DR 40 MGTAB] 30 Tablet 0 Sig: TAKE 1 TABLET BY MOUTH DAILY. INDICATIONS: GASTROESOPHAGEAL REFLUX DISEASE WITH CURRENT SYMPTOMS Proton Pump Inhibitors Protocol Passed - 10/28/2022 12:31 PM Passed - Visit with relevant provider in past 12 months or upcoming 90 days Recent Visits Date Type Provider Dept 10/28/22 Office Visit Flori Yeboah PAC [facility] [place] 10/12/22 Office Visit Flori Yeboah PAC [facility] [place] 09/11/22 Office Visit Flori Yeboah PAC [facility] [place] 08/26/22 Office Visit Flori Yeboah PAC [facility] [place] Showing recent visits within past 365 days and meeting all other requirements Future Appointments Date Type Provider Dept 11/11/22 Appointment Isac Weathers MD [facility] [place] 11/18/22 Appointment Flori Yeboah PAC [facility] [place] Showing future appointments within next 90 days and meeting all other requirements documented in this encounter Plan of Treatment Not on file documented as of this encounter Visit Diagnoses Not on filedocumented in this encounter Additional Health Concerns Infection Onset Date Last Indicated Resolved Time C. difficile Rule-Out 10/28/2022 10/28/20222022 6:05 PM CDT COVID - 19 06/06/2023 06/06/2023 06/16/2023 12:1 6 AM BRUSHER RSV 06/06/2023 06/06/2023 07/04/2023 12:1 6 AM BRUSHER documented as of this encounter Care Teams Sculpture Instructor Relationship Specialty Start Date End Date Flori Yeboah, [place] [address] [place] [address] PCP - General Physician Integrity Engineer 08/26/22 06/09/23 Isac Weathers MD [address] [place] [id number] PCP - General Internal Medicine 06/10/23 Ramon Alford MD [address] [place] [address] Consulting Physician Cardiovascular Disease - Cardiology 09/14/22 04/30/24 Emma Gibson APRN, TAX COMPLIANCE OFFICER #2 [facility] [address] [place] [address] Nurse Practitioner Cardiology 07/05/23 Denise White APRN, STRATEGIC BUSINESS DEVELOPMENT [address] [place] [address] Nurse Practitioner Advanced Practice Nurse 09/25/22 Constance Garsia APRN, TAX COMPLIANCE OFFICER #2 [place] [address] Nurse Practitioner Advanced Practice Nurse 12/02/22 Christian Christian APRN, TAX COMPLIANCE OFFICER [address] [place] [address] Nurse Practitioner Advanced Practice Nurse 10/19/23 Dean Sauceda MD [address] [place] [address] Consulting Physician Neurology 04/28/24 documented as of this encounter
[2024-11-27 11:57] LABS: Hematocrit 36.4 % (42.0-52.0); Hemoglobin 12.3 g/dL (14.0-18.0); Immature Granulocyte Percent A 0.2 % (0-0.5); Immature Platelet Fraction Pct 3.9 % (0.9-11.2); Lymphocytes Absolute Auto 1.56 K/mm3 (0.9-3.2); Mean Corpuscular HGB Conc 33.8 g/dl (32-36); Mean Corpuscular Hemoglobin 31.7 pg (26-34); Mean Corpuscular Volume 93.8 fl (80-100); Nucleated Red Blood Cells Absolute Auto 0.000 K/mm3 (0.0-0.012); Nucleated Red Blood Cells Perc 0.0 % (0.0-0.2); Platelet Count Result 131 k/mm3 (150-375); Red Blood Count 3.88 M/mm3 (4.6-6.20); White Blood Count 6.0 K/mm3 (4.5-10.0)
[2024-11-27 12:07] LABS: Alanine Aminotransferase 21 U/L (6-50); Albumin Level 3.9 g/dL (3.5-5.1); Alkaline Phosphatase 61 U/L (38-126); Anion Gap 6 mmol/L (4-12); Aspartate Amino Transferase 62 U/L (17-59); Bilirubin,Total 0.8 mg/dL (0.2-1.3); Blood Urea Nitrogen 12 mg/dL (9-20); Calcium 9.3 mg/dL (8.4-10.2); Carbon Dioxide 28 mmol/L (22-30); Chloride 104 mmol/L (98-107); Cholesterol 146 mg/dL (0-200); Estimated Glomerular Filt Rate > 60; Glucose 106 mg/dL (65-110); HDL Direct 49 mg/dL; Potassium 4.4 mmol/L (3.4-5.0); Sodium 138 mmol/L (137-145); Total Protein 6.7 g/dL (6.3-8.2); Triglycerides 73 mg/dL (<150)
[2024-11-27 12:38] LABS: Thyroid Stimulating Hormone 1.170 uIU/mL (0.465-4.680)
[2024-11-27 12:57] LABS: Vitamin B12 368.0 pg/mL (239-931)
[2024-12-01 12:13] LABS: Apolipoprotein B. 65 mg/dL
== END 2024-11-27 11:21 | disposition home or self-care (01) ==
PROVIDERS: PCP Family Medicine; Visit Provider Family Medicine
DX: R06.02 Shortness of breath (principal); Z00.00 Encounter for general adult medical examination without abnormal findings; R53.83 Other fatigue; I25.10 Atherosclerotic heart disease of native coronary artery without angina pectoris; Z95.5 Presence of coronary angioplasty implant and graft; E78.5 Hyperlipidemia, unspecified; Z79.899 Other long term (current) drug therapy
CPT/HCPCS: 36415; 80053; 80061; 82172; 82306; 82607; 84443; 85025; 85055

== ENCOUNTER 2024-12-12 07:38 | Outpatient (CLI) | payer OTHER, SELFPAY ==
--- OUTSIDE RECORDS SUMMARY | 2024-12-12 07:45 | XMS_ITS | Clinical Summary ---
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 Essential hypertension [...] Sexual Orientation Straight 05/13/2018 2: 41 PM NURSING SERVICE DIRECTOR Occupation Industry Job Start Date Job End Date [employer] Not on file Not on file Not on file Last Filed Vital Signs Vital Sign Reading Time Taken Comments Blood Pressure 174/97 06/16/2022 1:11 PM NURSING SERVICE DIRECTOR Pulse 66 06/16/2022 1:11 PM NURSING SERVICE DIRECTOR Temperature 36.1 C (97 F) 06/16/2022 1:11 PM NURSING SERVICE DIRECTOR Respiratory Rate 16 06/16/2022 1:11 PM NURSING SERVICE DIRECTOR Oxygen Saturation 97% 06/16/2022 1:11 PM NURSING SERVICE DIRECTOR Inhaled Oxygen Concentration - - Weight 79.7 kg (175 lb 9.6 oz) 06/16/2022 1:11 P M NURSING SERVICE DIRECTOR Height 175.3 cm (5' 9) 06/16/2022 1:11 PM NURSING SERVICE DIRECTOR Body Mass Index 25.93 06/16/2022 1:11 PM NURSING SERVICE DIRECTOR Plan of Treatment Health Maintenance Due Date [...] Comments LIPID PANEL Routine 05/19/2022 12:15 PM NURSING SERVICE DIRECTOR Dyslipidemia from Last 3 Months or Most Recently Relevant to Health Maintenance Results * LIPID PANEL (05/19/2022 12:15 PM NURSING SERVICE DIRECTOR) CHOLESTEROL 150 <200 mg/dL [facility] HDL 43 > OR = 40 mg/dL [facility] TRIGLYCERIDES 99 <150 mg/dL [facility] LDL (CALCULATED) 88 mg/dL (calc) [facility] Comment: Reference range: <100 Desirable range <100 mg/dL for primary prevention; <70 mg/dL for patients with CHD or diabetic patients with > or = 2 CHD risk factors. LDL-C is now calculated using the Cynthia calculation, which is a validated novel method providing better accuracy than the Friedewald equation in the estimation of LDL-C. Jose Cruz LEWIS et al. DANIELLE. 2013;310(14): 8630-6469 (http://education.QuestDiagnostics.STYLIGHT/faq/XTY910) CHOL/HDL RATIO 3.5 <5.0 (calc) [facility] NON HDL CHOLESTEROL 107 <130 mg/dL (calc) [facility] Comment: For patients with diabetes plus 1 major ASCVD risk factor, treating to a non-HDL-C goal of <100 mg/dL (LDL-C of <70 mg/dL) is considered a therapeutic option. 05/19/2022 12:1 5 PM NURSING SERVICE DIRECTOR 05/20/2022 6:16 AM NURSING SERVICE DIRECTOR Narrative Resulting Agency Comment Performing Organization Information: Site ID: [place] Name: [facility] Address: [address] [place] [address] Director: Hitesh Hernandez D.O., MPH us Tiffany Piedra MD LABORATORY Final Result [employer] [place] [facility] [id number] [place], [place] [address] [address] from Last 3 Months or Most Recently Relevant to Health Maintenance Insurance [employer] Care Teams Dispute Coordinator Relationship Specialty Start Date End Date Isac Weathers MD [address] [place] [address] PCP - General INTERNAL MEDICINE 05/24/22 Jamil Castellanos MD [facility]. [address] [address] [place] Tie Maker CARDIOVASCULAR DISEASE 09/29/17
--- OUTSIDE RECORDS SUMMARY | 2024-12-12 07:45 | XMS_ITS | Encounter Summary ---
Author Organization [facility] Address [address] [place] [address] Phone Care Team Providers Care Manager Of Sales Name Role Phone Flori Yeboah PAC Primary Care Pro vider Ramon Alford MD Unavailable Isac Pina MD Primary Care Provider [phone] Emma Gibson NUCLEAR PHYSICS TEACHER, MOLD CAR PUSHER Unavailable + [phone] Denise White NUCLEAR PHYSICS TEACHER, EXTRA HAND Unavailable + [phone] Constance Garsia NUCLEAR PHYSICS TEACHER, MOLD CAR PUSHER Unavailable Christian Christian NUCLEAR PHYSICS TEACHER, MOLD CAR PUSHER Unavailable [phone] Dean Sauceda MD Unavailable [phone] Reason for Visit * Reason Comments Medication Refill Encounter Details Date Type Department Care Team (Late st Contact Info) Description 09/23/2022 Refill [facility] - [facility] - [place] [address] [place] [address] Flori Yeboah, PAC [address] [place] [address] Medication Refill Social History Tobacco Use [...] 19 06/06/2023 06/06/2023 06/16/2023 12:1 6 AM JAVASCRIPT DEVELOPER RSV 06/06/2023 06/06/2023 07/04/2023 12:1 6 AM JAVASCRIPT DEVELOPER documented as of this encounter Care Teams Manager Of Sales Relationship Specialty Start Date End Date Flori Yeboah, [place] [address] [place] [address] PCP - General Physician Insurance Advisor 08/26/22 06/09/23 Isac Weathers MD [address] [place] [address] PCP - General Internal Medicine 06/10/23 Ramon Alford MD [address] [place] [address] Consulting Physician Cardiovascular Disease - Cardiology 09/14/22 04/30/24 Emma Gibson, NUCLEAR PHYSICS TEACHER, MOLD CAR PUSHER #2 [facility], [address] [place] [address] Nurse Practitioner Cardiology 2/12/24 7/14/25 Denise White APRN, EXTRA HAND #2 [place] [address] Nurse Practitioner Advanced Practice Nurse 09/25/22 Constance Garsia APRN, MOLD CAR PUSHER #2 [place] [address] Nurse Practitioner Advanced Practice Nurse 12/02/22 Christian Christian APRN, MOLD CAR PUSHER #[address] [place] [address] Nurse Practitioner Advanced Practice Nurse 10/19/23 Dean Sauceda MD #2 [place] [address] Consulting Physician Neurology 04/28/24 documented as of this encounter
--- OUTSIDE RECORDS SUMMARY | 2024-12-12 07:45 | XMS_ITS | Encounter Summary ---
Author Organization [facility] Address [address] [facility] [place] [address] Phone Care Team Providers Care Motor Rebuilder Name Role Phone Ramon Alford MD Unavailable Isac Pina MD Primary Care Provider [phone] Emma Gibson FILE CLERK, HOSPITAL CLEANING SPECIALIST Unavailable +- [phone] Denise White FILE CLERK, SUPERVISOR PROCESS TESTING Unavailable [phone] Constance Garsia FILE CLERK, HOSPITAL CLEANING SPECIALIST Unavailable Christian Christian FILE CLERK, HOSPITAL CLEANING SPECIALIST Unavailable [phone] Dean Sauceda MD Unavailable +[phone] Reason for Visit * Reason Comments Medication Refill Encounter Details Date Type Department Care Team (Late st Contact Info) Description 08/25/2023 Refill [facility] Emergency [address] [place] [address] Flori Yebo[place], [place] [address] Medication Refill Social History Tobacco Use Types Packs/Day Years Used Date Smoking Tobacco: Never Passive Smoke Exposure: Never Smokeless Tobacco: Never Alcohol Use Standard Drinks/Week Comments Yes 0 (1 standard drink = 0.6 oz pur e alcohol) Occasional [facility] Utilities Answer Date Recorded In the [...] often do you attend chur ch or religion services? More than 4 times per year 07/14/2023 Do you belong to any clubs o r organizations such as confucianism groups, unions, fraternal or athletic groups, or [...] place to sleep or slept in a long term (including now)? No 07/14/2023 Sexually Active Control [...] Depression Total Score: 0 07/14/19 10:17 AM OLIVE GROWER documented as of this encounter Care Teams Motor Rebuilder Relationship Specialty Start Date End Date Isac Weathers MD [address] [place] [address] PCP - General Internal Medicine 06/10/23 Ramon Alford MD Consulting Physician Cardiovascular Disease - Cardiology 09/14/22 04/30/24 Emma Gibson, FILE CLERK, HOSPITAL CLEANING SPECIALIST #[address] [address] Nurse Practitioner Cardiology 07/05/23 12/04/24 Denise White FILE CLERK, SUPERVISOR PROCESS TESTING #2 [place] [address] Nurse Practitioner Advanced Practice Nurse 09/25/22 Constance Garsia APRN, HOSPITAL CLEANING SPECIALIST #2 [place] [address] Nurse Practitioner Advanced Practice Nurse 12/02/22 Chrsitian Christian APRN, HOSPITAL CLEANING SPECIALIST #2 [place] [address] Nurse Practitioner Advanced Practice Nurse 10/19/23 Dean Sauceda MD #2 [place] [address] Consulting Physician Neurology 04/28/24 documented as of this encounter
--- OUTSIDE RECORDS SUMMARY | 2024-12-12 07:45 | XMS_ITS | Encounter Summary ---
Author Organization [facility] Address [address] [facility] [place] [address] Phone Care Team Providers Care Director Pharmacology Name Role Phone Flori Yeboah PAC Primary Care Pro vider Ramon Alford MD Unavailable UnaIsac Stubbs MD Primary Care Provider [phone] Emma Gibson COMPANY MANAGER, SUPERVISOR EXTRUDING DEPARTMENT Unavailable + [phone] Denise White COMPANY MANAGER, RN TELE Unavailable + [phone] Constance Garsia COMPANY MANAGER, SUPERVISOR EXTRUDING DEPARTMENT Unavailable Christian Christian COMPANY MANAGER, SUPERVISOR EXTRUDING DEPARTMENT Unavailable [phone] Dean Sauceda MD Unavailable +[phone] Reason for Visit * Reason Comments Medication Refill Encounter Details Date Type Department Care Team (Late st Contact Info) Description [facility] [address] [place] [address] Isac Weathers MD [address] [place] [address] Medication Refill Social History Tobacco Use [...] 19 06/06/2023 06/06/2023 06/16/2023 12:1 6 AM REHAB DIRECTOR OCCUPATIONAL THERAPIST RSV 06/06/2023 06/06/2023 07/04/2023 12:1 6 AM REHAB DIRECTOR OCCUPATIONAL THERAPIST documented as of this encounter Care Teams Director Pharmacology Relationship Specialty Start Date End Date Flori Yeboah PAC [address] [place] [address] PCP - General Physician Melt House Drag Operator 08/26/22 06/09/23 Isac Weathers MD [address] [place] [address] PCP - General Internal Medicine 06/10/23 Ramon Alford MD [address] [place] [address] Consulting Physician Cardiovascular Disease - Cardiology 09/14/22 04/30/24 Emma Gibson, COMPANY MANAGER, SUPERVISOR EXTRUDING DEPARTMENT #[address] [address] Nurse Practitioner Cardiology 07/05/23 12/04/24 Denise White, COMPANY MANAGER, RN TELE #2 [place] [address] Nurse Practitioner Advanced Practice Nurse 09/25/22 Constance Garsia, COMPANY MANAGER, SUPERVISOR EXTRUDING DEPARTMENT #2 [place] [address] Nurse Practitioner Advanced Practice Nurse 12/02/22 Christian Christian, COMPANY MANAGER, SUPERVISOR EXTRUDING DEPARTMENT #2 [place] [address] Nurse Practitioner Advanced Practice Nurse 10/19/23 Dean Sauceda MD #2 [place] [address] Consulting Physician Neurology 04/28/24 documented as of this encounter
--- OUTSIDE RECORDS SUMMARY | 2024-12-12 07:45 | XMS_ITS | Encounter Summary ---
Author Organization [facility] Address [address] [facility] [place] [address] Phone Care Team Providers Care Medical Doctor Name Role Phone Flori Yeboah PAC Primary Care Pro vider Ramon Alford MD Unavailable UnaIsac Stubbs MD Primary Care Provider [phone] Emma Gibson FINISHING AREA SUPERVISOR, SPA SUPERVISOR Unavailable + [phone] Denise White FINISHING AREA SUPERVISOR, WOOL BATTING WORKER Unavailable + [phone] Constance Garsia FINISHING AREA SUPERVISOR, SPA SUPERVISOR Unavailable Christian Christian FINISHING AREA SUPERVISOR, SPA SUPERVISOR Unavailable [phone] Dean Sauceda MD Unavailable [phone] Reason for Visit * Reason Comments Medication Refill Encounter Details Date Type Department Care Team (Late st Contact Info) Description [facility] [address] [place] [address] Isac Weathers MD [address] [place] [address] Medication Refill Social History Tobacco Use [...] 19 06/06/2023 06/06/2023 06/16/2023 12:1 6 AM DIRECTOR OF OUTREACH RSV 06/06/2023 06/06/2023 07/04/2023 12:1 6 AM DIRECTOR OF OUTREACH documented as of this encounter Care Teams Medical Doctor Relationship Specialty Start Date End Date Flori Yeboah PAC [address] [place] [address] PCP - General Physician Commanding Officer Garage 08/26/22 06/09/23 Isac Weathers MD [address] [place] [address] PCP - General Internal Medicine 06/10/23 Ramon Alford MD [address] [place] [address] Consulting Physician Cardiovascular Disease - Cardiology 09/14/22 04/30/24 Emma Gibson APRN, SPA SUPERVISOR #2 [facility], [address] [place] [address] Nurse Practitioner Cardiology 07/05/23 12/04/24 Denise White APRN, WOOL BATTING WORKER #2 [place] [address] Nurse Practitioner Advanced Practice Nurse 09/25/22 Constance Garsia APRN, SPA SUPERVISOR #2 [place] [address] Nurse Practitioner Advanced Practice Nurse 12/02/22 Christian Christian APRN, SPA SUPERVISOR #2 [place] [address] Nurse Practitioner Advanced Practice Nurse 10/19/23 Dean Sauceda MD #2 [place] [address] Consulting Physician Neurology 04/28/24 documented as of this encounter
--- OUTSIDE RECORDS SUMMARY | 2024-12-12 07:45 | XMS_ITS | Encounter Summary ---
Author Organization [facility] Address [address] [facility] [place] [address] Phone Care Team Providers Care Corporate Safety Manager Name Role Phone Flori Yeboah PAC Primary Care Pro vider Ramon Alford MD Unavailable Isac Pina MD Primary Care Provider [phone] Emma Gibson DIRECTOR OF HOTEL, RAILWAY HEAD TENDER Unavailable + [phone] Denise White DIRECTOR OF HOTEL, SUPERVISOR PREP Unavailable + [phone] Constance Garsia DIRECTOR OF HOTEL, RAILWAY HEAD TENDER Unavailable Christian Christian DIRECTOR OF HOTEL, RAILWAY HEAD TENDER Unavailable +[phone] Dean Sauceda MD Unavailable +[phone] Reason for Visit * Reason Comments Medication Refill Encounter Details Date Type Department Care Team (Late st Contact Info) Description 02/02/2023 [facility]ill [facility] Medical[facility]Surgical Intensive Care [address] [place] [address] Flori Yeboah, PAC [address] [place] [address] Medication Refill Social History Tobacco Use [...] 19 06/06/2023 06/06/2023 06/16/2023 12:1 6 AM GOVERNMENT AFFAIRS MANAGER RSV 06/06/2023 06/06/2023 07/04/2023 12:1 6 AM GOVERNMENT AFFAIRS MANAGER documented as of this encounter Care Teams Corporate Safety Manager Relationship Specialty Start Date End Date Flori Yeboah PAC [address] [place] [address] PCP - General Physician Mosaic Floor Layer 08/26/22 06/09/23 Isac Weathers MD [address] [place] [address] PCP - General Internal Medicine 06/10/23 Ramon Alford MD [address] [place] [address] Consulting Physician Cardiovascular Disease - Cardiology 09/14/22 04/30/24 Emma Gibson, DIRECTOR OF HOTEL, RAILWAY HEAD TENDER #[address] [place] [id number] Nurse Practitioner Cardiology 07/05/23 12/04/24 Denise White, DIRECTOR OF HOTEL, SUPERVISOR PREP #2 [place] [address] Nurse Practitioner Advanced Practice Nurse 09/25/22 Constance Garsia DIRECTOR OF HOTEL, RAILWAY HEAD TENDER #2 [place] [address] Nurse Practitioner Advanced Practice Nurse 12/02/22 Christian Christian, DIRECTOR OF HOTEL, RAILWAY HEAD TENDER #2 [place] [address] Nurse Practitioner Advanced Practice Nurse 10/19/23 Dean Sauceda MD #2 [place] [address] Consulting Physician Neurology 04/28/24 documented as of this encounter
--- OUTSIDE RECORDS SUMMARY | 2024-12-12 07:45 | XMS_ITS | Encounter Summary ---
Author Organization [facility] Address [address] [facility] [place] [address] Phone Care Team Providers Care Candlemaking Laborer Name Role Phone Ramon Alford MD Unavailable [facility] Isac Granda MD Primary Care Provider [phone] Emma Gibson TECHNICAL DOCUMENT WRITER, CLEANERS Unavailable + [phone] Denise White TECHNICAL DOCUMENT WRITER, STOREROOM ATTENDANT Unavailable [phone] Constance Garsia TECHNICAL DOCUMENT WRITER, CLEANERS Unavailable Christian Christian TECHNICAL DOCUMENT WRITER, CLEANERS Unavailable [phone] Dean Sauceda MD Unavailable +[phone] Reason for Visit * Reason Comments Medication Refill Encounter Details Date Type Department Care Team (Late st Contact Info) Description 10/30/2023 [facility]ill [facility] - [place] [address] [place] [address] Isac Weathers MD [address] [place] [address] Medication Refill Social History Tobacco Use Types Packs/Day Years Used Date Smoking Tobacco: Never Passive Smoke Exposure: Never Smokeless Tobacco: Never Alcohol Use Standard Drinks/Week Comments Yes 0 (1 standard drink = 0.6 oz pur e alcohol) Occasional [facility] Utilities Answer Date Recorded In the past [...] Never 09/14/2023 How often do you attend religious or methodist serv ices? Never 09/14/2023 Do you belong to any clubs o r organizations such as religious groups, unions, fraternal or athletic groups, or [...] Total Score - Questions 1-9 0 06/25 [facility] Occupat ional Health - Occupational Stress [...] place to sleep or slept in a care home (including now)? No 09/14/2023 Sexually Active [...] Office Visit Flori Yeboah, PAC [facility] [place] 09/20/23 Office Visit Flori Yeboah, PAC [facility] [place] 08/17/23 Office Visit Isac Weathers MD [facility] [place] 07/14/23 Office Visit Isac Weathers MD [facility] [place] 03/17/23 Office Visit Flori Yeboah, PAC [facility] [place] 01/20/23 Office Visit Flori Yeboah, PAC [facility] [place] 12/14/22 Office Visit Flori Yeboah, PAC [facility] [place] 11/11/22 Office Visit Isac Weathers MD [facility] [place] Showing recent visits within past 365 days and meeting all other requirements Future Appointments Date Type Provider Dept 11/17/23 Appointment Isac Weathers MD [facility] [place] Showing future appointments within next 90 days [...] Depression Total Score: 0 07/14/19 10:17 AM TAXI DRIVER documented as of this encounter Care Teams Candlemaking Laborer Relationship Specialty Start Date End Date Isac Weathers MD [address] [place] [address] PCP - General Internal Medicine 06/10/23 Ramon Alford MD Consulting Physician Cardiovascular Disease - Cardiology 09/14/22 04/30/24 Emma Gibson, TECHNICAL DOCUMENT WRITER, CLEANERS #2 [facility] [address] [place] [address] Nurse Practitioner Cardiology 07/05/23 12/04/24 Denise White, TECHNICAL DOCUMENT WRITER, STOREROOM ATTENDANT #2 [place] [address] Nurse Practitioner Advanced Practice Nurse 09/25/22 Constance Garsia, TECHNICAL DOCUMENT WRITER, CLEANERS #2 [place] [address] Nurse Practitioner Advanced Practice Nurse 12/02/22 Christian Christian, TECHNICAL DOCUMENT WRITER, CLEANERS #[address] [place] [address] Nurse Practitioner Advanced Practice Nurse 10/19/23 Dean Sauceda MD #2 [place] [address] Consulting Physician Neurology 04/28/24 documented as of this encounter
--- OUTSIDE RECORDS SUMMARY | 2024-12-12 07:45 | XMS_ITS | Encounter Summary ---
Author Organization [facility] Address [address] [facility] [place] [address] Phone Care Team Providers Care Drink Mixer Name Role Phone Flori Yeboah PAC Primary Care Pro vider Ramon Alford MD Unavailable Isac Pina MD Primary Care Provider [phone] Emma Gibson PROPERTY AND EQUIPMENT CLERK, LPN Unavailable + [phone] Denise White PROPERTY AND EQUIPMENT CLERK, BOX BENDER Unavailable + [phone] Constance Garsia PROPERTY AND EQUIPMENT CLERK, LPN Unavailable Christian Christian PROPERTY AND EQUIPMENT CLERK, LPN Unavailable + [phone] Dean Sauceda MD Unavailable +[phone] Reason for Visit * Reason Comments Medication Refill Encounter Details Date Type Department Care Team (Late st Contact Info) Description 05/01/2023 [facility]ill [facility] Medical/Surgical Intensive Care [address] [place] [address] Flori Yeboah, PAC [address] [place] [address] Medication [...] no refill protocol information for this order CRUSHER OPERATOR documented in this encounter Plan of Treatment Not on file documented as of this encounter Visit Diagnoses Not on filedocumented in this encounter Additional Health Concerns Infection Onset Date Last Indicated Resolved Time COVID - 19 06/06/2023 06/06/2023 06/16/2023 12:1 6 AM FEED CRUSHER OPERATOR RSV 06/06/2023 06/06/2023 07/04/2023 12:1 6 AM FEED CRUSHER OPERATOR documented as of this encounter Care Teams Drink Mixer Relationship Specialty Start Date End Date Flori Yeboah PAC [address] [place] [address] PCP - General Physician Utility Division Project Manager 08/26/22 06/09/23 Isac Weathers MD [address] [place] [address] PCP - General Internal Medicine 06/10/23 Ramon Alford MD [address] [place] [address] Consulting Physician Cardiovascular Disease - Cardiology 09/14/22 04/30/24 Emma Gibson, PROPERTY AND EQUIPMENT CLERK, LPN #2 [facility] [address] [place] [address] Nurse Practitioner Cardiology 07/05/23 12/04/24 Denise White, PROPERTY AND EQUIPMENT CLERK, BOX BENDER [address]2 [place] [address] Nurse Practitioner Advanced Practice Nurse 09/25/22 Constance Garsia PROPERTY AND EQUIPMENT CLERK, LPN [address] [place] [address] Nurse Practitioner Advanced Practice Nurse 12/02/22 Christian Christian PROPERTY AND EQUIPMENT CLERK, LPN [address] [place] [address] Nurse Practitioner Advanced Practice Nurse 10/19/23 Dean Sauceda MD [address] [place] [address] Consulting Physician Neurology 04/28/24 documented as of this encounter
--- OUTSIDE RECORDS SUMMARY | 2024-12-12 07:45 | XMS_ITS | Encounter Summary ---
Author Organization [facility] Address [address] [facility] [place] [address] Phone Care Team Providers Care Janitorial Supervisor Name Role Phone Flori Yeboah PAC Primary Care Pro vider Ramon Alford MD Unavailable Isac Pina MD Primary Care Provider [phone] Emma Gibson SNAKER DRIVING HORSES, INDEPENDENT INSURANCE ADJUSTER Unavailable + [phone] Denise White SNAKER DRIVING HORSES, PLASTIC DIE MAKER APPRENTICE Unavailable + [phone] Constance Garsia SNAKER DRIVING HORSES, INDEPENDENT INSURANCE ADJUSTER Unavailable Christian Christian SNAKER DRIVING HORSES, INDEPENDENT INSURANCE ADJUSTER Unavailable +[phone] Dean Sauceda MD Unavailable +[phone] Reason for Visit * Reason Comments Medication Refill Encounter Details Date Type Department Care Team (Late st Contact Info) Description 02/25/2023 Refill [facility] Emergency [address] [place] [address] Flori Yeboah, PAC [address] [...] 19 06/06/2023 06/06/2023 06/16/2023 12:1 6 AM CHILDCARE PROVIDER RSV 06/06/2023 06/06/2023 07/04/2023 12:1 6 AM CHILDCARE PROVIDER documented as of this encounter Care Teams Janitorial Supervisor Relationship Specialty Start Date End Date Flori Yeboah PAC [address] [place] [address] PCP - General Physician Vat House Supervisor 08/26/22 06/09/23 Isac Weathers MD [address] [place] [address] PCP - General Internal Medicine 06/10/23 Ramon Alford MD [address] [place] [address] Consulting Physician Cardiovascular Disease - Cardiology 09/14/22 04/30/24 Emma Gibson, SNAKER DRIVING HORSES, INDEPENDENT INSURANCE ADJUSTER #[address] [address] Nurse Practitioner Cardiology 07/05/23 12/04/24 Denise White, SNAKER DRIVING HORSES, PLASTIC DIE MAKER APPRENTICE [address]2 [place] [address] Nurse Practitioner Advanced Practice Nurse 09/25/22 Constance Garsia SNAKER DRIVING HORSES, INDEPENDENT INSURANCE ADJUSTER #2 [place] [address] Nurse Practitioner Advanced Practice Nurse 12/02/22 Christian Christian, SNAKER DRIVING HORSES, INDEPENDENT INSURANCE ADJUSTER [address]2 [place] [address] Nurse Practitioner Advanced Practice Nurse 10/19/23 Dean Sauceda MD [address] [place] [id number] Consulting Physician Neurology 04/28/24 documented as of this encounter
--- OUTSIDE RECORDS SUMMARY | 2024-12-12 07:45 | XMS_ITS | Encounter Summary ---
Author Organization [facility] Address [address] [facility] [place] [address] Phone Care Team Providers Care Confectionery Cooker Name Role Phone Ramon Alford MD Unavailable Isac Pina MD Primary Care Provider [phone] Emma Gibson KEYBOARD INSTRUMENT TUNER, FINANCIAL PROFESSIONAL Unavailable + [phone] Denise White KEYBOARD INSTRUMENT TUNER, TELEPHONIC RN Unavailable +- [phone] Constance Garsia KEYBOARD INSTRUMENT TUNER, FINANCIAL PROFESSIONAL Unavailable Christian Christian KEYBOARD INSTRUMENT TUNER, FINANCIAL PROFESSIONAL Unavailable +[phone] Dean Sauceda MD Unavailable +[phone] Reason for Visit * Reason Comments Medication Refill Encounter Details Date Type Department Care Team (Late st Contact Info) Description 10/23/2023 [facility]ill [facility] - Internal Medicine - [facility] [address] [place] [address] Flori Yeboah PAC [address] [place] [address] Medication Refill Social History Tobacco Use Types Packs/Day Years Used Date Smoking Tobacco: Never Passive Smoke Exposure: Never Smokeless Tobacco: Never Alcohol Use Standard Drinks/Week Comments Yes 0 (1 standard drink = 0.6 oz pur e alcohol) Occasional [facility] Utilities Answer Date Recorded In the past [...] Never 09/14/2023 How often do you attend sikhism or presybeterian serv ices? Never 09/14/2023 Do you belong to any clubs o r organizations such as sikhism groups, unions, fraternal or athletic groups, or [...] Total Score - Questions 1-9 0 06/25 [facility] of Occupat ional Health - Occupational Stress [...] Office Visit Flori Yeboah, [place] [facility] 09/20/23 Office Visit Flori Yeboah, PAC [facility] 08/17/23 Office Visit Isac Weathers, [facility] 07/14/23 Office Visit Isac Weathers, [facility] 03/17/23 Office Visit Ed[place], Flori Walker, PAC [facility] 01/20/23 Office Visit Flori Yeboah, PAC [facility] 12/14/22 Office Visit Flori Yeboah, PAC [facility] 11/11/22 Office Visit Isac Weathers, [facility] 10/28/22 Office Visit Flori Yeboah, PAC [facility] Showing recent visits within past 365 days and meeting all other requirements Future Appointments Date Type Provider Dept 11/17/23 Appointment Isac Weathers MD [facility] Showing future appointments within next 90 days and meeting all other requirements documented in this encounter Plan of Treatment Not on file documented as of this encounter Visit Diagnoses Not on filedocumented in this encounter Additional Health Concerns Assessment Noted Time PHQ-9 Depression Total Score: 0 07/14/19 10:17 AM CONSULTING MARINE ENGINEER documented as of this encounter Care Teams Confectionery Cooker Relationship Specialty Start Date End Date Isac Weathers MD [address] [place] [address] PCP - General Internal Medicine 06/10/23 Ramon Alford MD Consulting Physician Cardiovascular Disease - Cardiology 09/14/22 04/30/24 Emma Gibson APRN, FINANCIAL PROFESSIONAL #2 [facility], [address] [place] [address] Nurse Practitioner Cardiology 07/05/23 12/04/24 Denise White APRN, TELEPHONIC RN #2 [place] [address] Nurse Practitioner Advanced Practice Nurse 09/25/22 Constance Garsia APRN, FINANCIAL PROFESSIONAL [address]2 [place] [address] Nurse Practitioner Advanced Practice Nurse 12/02/22 Christian Christian APRN, FINANCIAL PROFESSIONAL [address] [place] [address] Nurse Practitioner Advanced Practice Nurse 10/19/23 Dean Sauceda MD #[address] [place] [address] Consulting Physician Neurology 04/28/24 documented as of this encounter
--- OUTSIDE RECORDS SUMMARY | 2024-12-12 07:45 | XMS_ITS | Encounter Summary ---
Author Organization [facility] Address [address] [facility] [place] [address] Phone Care Team Providers Care Gear Grinding Machine Operator Name Role Phone Flori Yeboah PAC Primary Care Pro vider Ramon Alford MD Unavailable UnaIsac Stubbs MD Primary Care Provider [phone] Emma Gibson DIGESTER OPERATOR HELPER, TELEPATHIST Unavailable + [phone] Denise White DIGESTER OPERATOR HELPER, FONDANT MACHINE OPERATOR Unavailable + [phone] Constance Garsia DIGESTER OPERATOR HELPER, TELEPATHIST Unavailable Christian Christian DIGESTER OPERATOR HELPER, TELEPATHIST Unavailable [phone] Dean Sauceda MD Unavailable +[phone] Reason for Visit * Reason Comments Medication Refill Encounter Details Date Type Department Care Team (Late st Contact Info) Description 09/25/2022 Refill [facility] - Internal Medicine - [place] [address] [place] [address] Isac Weathers MD [address] [place] [address] Medication Refill Social History Tobacco [...] 19 06/06/2023 06/06/2023 06/16/2023 12:1 6 AM ASSISTANT THERAPY AIDE RSV 06/06/2023 06/06/2023 07/04/2023 12:1 6 AM ASSISTANT THERAPY AIDE documented as of this encounter Care Teams Gear Grinding Machine Operator Relationship Specialty Start Date End Date Flori Yeboah PAC [address] [place] [address] PCP - General Physician Honing Machine Set Up Operator 08/26/22 06/09/23 Isac Weathers MD [address] [place] [address] PCP - General Internal Medicine 06/10/23 Ramon Alford MD [address] [place] [address] Consulting Physician Cardiovascular Disease - Cardiology 09/14/22 04/30/24 Emma Gibson, DIGESTER OPERATOR HELPER, TELEPATHIST #2 [facility], [address] [place] [address] Nurse Practitioner Cardiology 07/05/23 12/04/24 Denise White APRN, FONDANT MACHINE OPERATOR #[address] [place] [address] Nurse Practitioner Advanced Practice Nurse 09/25/22 Constance Garsia APRN, TELEPATHIST #2 [place] [address] Nurse Practitioner Advanced Practice Nurse 12/02/22 Christian Christian APRN, TELEPATHIST #[address] [place] [address] Nurse Practitioner Advanced Practice Nurse 10/19/23 Dean Sauceda MD #[address] [place] [address] Consulting Physician Neurology 04/28/24 documented as of this encounter
--- OUTSIDE RECORDS SUMMARY | 2024-12-12 07:45 | XMS_ITS | Clinical Summary ---
Author Organization [facility] Address [address] [place] [address] Phone Care Team Providers Care Bike Technician Name Role Phone Isac Weathers MD Primary Care Provider [phone] Denise White APRN, PROVIDER ENGAGEMENT EXECUTIVE Unavailable + [phone] Constance Garsia PROFESSIONAL NURSING ASSISTANT, CIGARETTE STAMPER Unavailable Christian Christian PROFESSIONAL NURSING ASSISTANT, CIGARETTE STAMPER Unavailable Dean Sauceda MD Unavailable Allergies No known active allergies Medications aspirin [...] hypertension, benign Coronary artery disease invo lving [place] coronary artery of [place] heart without angina pectoris Resolved Problems Problem Noted Date Diagnosed Date Resolved Date COPD exacerbation 09/15/2023 11/17/2023 CHF exacerbation 09/15/2023 11/17/2023 Constipation 08/26/2022 07/14/2023 Asymptomatic bacteriuria Immunizations Immunization Administration Dates Next Due Influenza Vaccine,unspecified Formulation 2018 Influenza, High-dose, Quadrivalent 03/06/2020, Influenza, Quadrivalent, Adjuvanted 03/17/2023 Influenza, Trivalent, Adjuvanted, PF 02/21/2024 Influenza, high-dose, trivalent, PF 03/06/2020,1 07/03/2018 Pneumococcal Vaccine - 13 Valent 05/13/2020 Pneumococcal Vaccine Adult - 23 Valent 4,07/15/2010 Pneumococcal conjugate PCV20 , polysaccharide [id number] conjugate, adjuvant, PF 10/23/2021 TD VACCINE 03/31/2016 [...] = 0.6 oz pur e alcohol) Occasional [employer] Utilities Answer Date Recorded In the past 12 months has [employer], gas, oil, or water [employer] threatened to shut off services in your home? No 09/14/2023 Social Connection and Isolation Panel Answer Date Recorded In a typical week, how many times do you talk on the phone with family, friends, or neighbors? Never 09/14/2023 How often do you get togethe r with friends or relatives? Never 09/14/2023 How often do you attend scientologist or quaker serv ices? Never 09/14/2023 Do you belong to any clubs o r organizations such as scientologist groups, unions, fraternal or athletic groups, or [...] Total Score - Questions 1-9 0 12/2024 [facility] of Occupat ional Health - [...] place to sleep or slept in a half-way (including now)? No 09/14/2023 Sexually Active Control [...] CDT Respiratory Rate 18 04/27/2024 1:42 PM MAITRE D' Oxygen Saturation 94% 08/30/2024 8:33 AM CDT [...] season) 2024 01/24/2021, 12/19/2020 Influenza Immunization (#1) 2025 09, 03/17/2023, 03/06/2020, Additional history exists Td Immunization [...] Documents on File Type Date Recorded Patient Rn Ambulatory Expl anation Power of Tax Representative for Health Care 09/15/2023 10:13 AM Roseline [place] POA-HC, 09/14/2023 Power of Tax Representative for Health Care 09/14/2023 1:47 PM POA-HC, 09/14/2023 Power of Tax Representative for Health Care 11/16/2022 10:27 AM POA-HC, [...] Agents on File Name Relationship Healthcare Agent [facility] POA Care Teams Bike Technician Relationship Specialty Start Date End Date Isac Weathers MD [address] [place] [address] PCP - General Internal Medicine 06/10/23 Denise White, PROFESSIONAL NURSING ASSISTANT, PROVIDER ENGAGEMENT EXECUTIVE [address] [place] [address] Nurse Practitioner Advanced Practice Nurse 09/25/22 Constance Garsia, PROFESSIONAL NURSING ASSISTANT, CIGARETTE STAMPER #2 [place] [address] Nurse Practitioner Advanced Practice Nurse 12/02/22 Christian Christian, PROFESSIONAL NURSING ASSISTANT, CIGARETTE STAMPER [address] [place] [address] Nurse Practitioner Advanced Practice Nurse 10/19/23 Dean Sauceda MD [address] [place] [address] Consulting Physician Neurology 04/28/24
--- OUTSIDE RECORDS SUMMARY | 2024-12-12 07:45 | XMS_ITS | Encounter Summary ---
Author Organization [facility] Address [address] [place] [address] Phone Care Team Providers Care Slubber Tender Name Role Phone Ramon Alford MD Unavailable Isac Pina MD Primary Care Provider [phone] Emma Gibson VALIDATION SCIENTIST, STOCKROOM KEEPER Unavailable + [phone] Denise White VALIDATION SCIENTIST, INSTALLATION AND REPAIR TECHNICIAN Unavailable +- [phone] Constance Garsia VALIDATION SCIENTIST, STOCKROOM KEEPER Unavailable Christian Christian VALIDATION SCIENTIST, STOCKROOM KEEPER Unavailable [phone] Dean Sauceda MD Unavailable [phone] Reason for Visit * Reason Comments Medication Refill Encounter Details Date Type Department Care Team (Late st Contact Info) Description 10/02/2023 Refill [facility] - Internal Medicine - [place] [address] [place] [address] Flori Yeboah, [place] [address] [place] [address] Medication Refill Social History Tobacco Use Types Packs/Day Years Used Date Smoking Tobacco: Never Passive Smoke Exposure: Never Smokeless Tobacco: Never Alcohol Use Standard Drinks/Week Comments Yes 0 (1 standard drink = 0.6 oz pur e alcohol) Occasional [facility] Utilities Answer Date Recorded In [...] Never 09/14/2023 How often do you attend jehovah's witness or presybeterian serv ices? Never 09/14/2023 Do you belong to any clubs o r organizations such as jehovah's witness groups, unions, fraternal or athletic groups, or [...] Total Score - Questions 1-9 0 06/25 [facility] of Occupat ional Health - [...] slept in a chcf (including now)? No 09/14/2023 Sexually Active Control [...] Visit Edilia Flori Walker, PAC [facility] [place] 09/20/23 Office Visit Nina Yeboahalesha Walker, PAC [facility] [place] 08/17/23 Office Visit Isac Weathers MD [facility] [place] 07/14/23 Office Visit Isac Weathers MD [facility] [place] 03/17/23 Office Visit Nina Yeboahalesha Walker, PAC [facility] [place] 01/20/23 Office Visit Nina Yeboahalesha Walker, PAC [facility] [place] 12/14/22 Office Visit Edilia Flori Walker, PAC [facility] [place] 11/11/22 Office Visit Isac Weathers MD [facility] [place] 10/28/22 Office Visit Nina Yeboahalesha Walker, PAC [facility] [place] 10/12/22 Office Visit Nina Yeboahney Denise, PAC [facility] [place] Showing recent visits within past 365 days and meeting all other requirements Future Appointments Date Type Provider Dept 11/17/23 Appointment Isac Weathers MD [facility] [place] Showing future appointments within next 90 days and meeting all other requirements documented in this encounter Plan of Treatment Not on file documented as of this encounter Visit Diagnoses Not on filedocumented in this encounter Additional Health Concerns Assessment Noted Time PHQ-9 Depression Total Score: 0 07/14/19 10:17 AM CONE RUNNER documented as of this encounter Care Teams Slubber Tender Relationship Specialty Start Date End Date Isac Weathers MD [address] [place] [address] PCP - General Internal Medicine 06/10/23 Ramon Alford MD Consulting Physician Cardiovascular Disease - Cardiology 09/14/22 04/30/24 Emma Gibson, VALIDATION SCIENTIST, STOCKROOM KEEPER #2 [facility] [address] [place] [address] Nurse Practitioner Cardiology 07/05/23 12/04/24 Denise White, VALIDATION SCIENTIST, INSTALLATION AND REPAIR TECHNICIAN [address] [place] [address] Nurse Practitioner Advanced Practice Nurse 09/25/22 Constance Garsia, VALIDATION SCIENTIST, STOCKROOM KEEPER [address] [place] [address] Nurse Practitioner Advanced Practice Nurse 12/02/22 Christian Christian, VALIDATION SCIENTIST, STOCKROOM KEEPER [address] [place] [address] Nurse Practitioner Advanced Practice Nurse 10/19/23 Dean Sauceda MD [address] [place] [address] Consulting Physician Neurology 04/28/24 documented as of this encounter
--- OUTSIDE RECORDS SUMMARY | 2024-12-12 07:45 | XMS_ITS | Encounter Summary ---
Author Organization [facility] Address [address] [facility] [place] [address] Phone Care Team Providers Care Architectural Drafting Instructor Name Role Phone Flori Yeboah PAC Primary Care Pro vider Ramon Alford MD Unavailable Isac Pina MD Primary Care Provider [phone] Emma Gibson DRUM HANDLER, DUMPER OPERATOR Unavailable + [phone] Denise White DRUM HANDLER, DIE CASTING MACHINE MAINTAINER Unavailable + [phone] Constance Garsia DRUM HANDLER, DUMPER OPERATOR Unavailable Christian Christian DRUM HANDLER, DUMPER OPERATOR Unavailable +[phone] Dean Sauceda MD Unavailable [phone] Reason for Visit * Reason Comments Medication Refill Encounter Details Date Type Department Care Team (Late st Contact Info) Description 11/23/2022 Refill [facility] - Internal Medicine - [place] [address] [place] [address] Jayda Layton, PAC [address] [place] [address] Medication Refill Social History Tobacco Use Types [...] 19 06/06/2023 06/06/2023 06/16/2023 12:1 6 AM LITHOGRAPHIC CAMERA OPERATOR RSV 06/06/2023 06/06/2023 07/04/2023 12:1 6 AM LITHOGRAPHIC CAMERA OPERATOR documented as of this encounter Care Teams Architectural Drafting Instructor Relationship Specialty Start Date End Date Flori Yeboah PAC [address] [place] [address] PCP - General Physician Party Plan Sales Unit Advisor 08/26/22 06/09/23 Isac Weathers MD [address] [place] [address] PCP - General Internal Medicine 06/10/23 Ramon Alford MD [address] [place] [address] Consulting Physician Cardiovascular Disease - Cardiology 09/14/22 04/30/24 Emma Gibson, DRUM HANDLER, DUMPER OPERATOR #2 [facility] [address] [place] [address] Nurse Practitioner Cardiology 07/05/23 12/04/24 Denise White, DRUM HANDLER, [facility] [address] [place] [address] Nurse Practitioner Advanced Practice Nurse 09/25/22 Constance Garsia, DRUM HANDLER, DUMPER OPERATOR #2 [place] [address] Nurse Practitioner Advanced Practice Nurse 12/02/22 Christian Christian, DRUM HANDLER, DUMPER OPERATOR [address] [place] [address] Nurse Practitioner Advanced Practice Nurse 10/19/23 Dean Sauceda MD [address] [place] [address] Consulting Physician Neurology 04/28/24 documented as of this encounter
--- OUTSIDE RECORDS SUMMARY | 2024-12-12 07:45 | XMS_ITS | Encounter Summary ---
Author Organization [facility] Address [facility] [place] [address] Care Team Providers Care Air Support Control Officer Name Role Phone Tiffany Piedra MD Primary Care Provider + [phone] Jamil Castellanos MD Unavailable [phone] Isac Weathers MD Primary Care Provider [phone] Encounter Details Date Type Department Care Team (Late st Contact Info) Description 10/05/2017 Abstract [facility] at [address] [address] Corwin Nazario MA Social History Tobacco Use [...] Sexual Orientation Straight 05/13/2018 2: 41 PM [employer]CHO[employer]GE PROGRAM TEACHER 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 [address] [address] Sterling Gospel Worker CARDIOVASCULAR DISEASE 09/29/17 documented as of this encounter
--- OUTSIDE RECORDS SUMMARY | 2024-12-12 07:45 | XMS_ITS | Encounter Summary ---
Author Organization [facility] Address [address] [facility] [place] [address] Phone Care Team Providers Care Lime Mixer Name Role Phone Flori Yeboah PAC Primary Care Pro vider Ramon Alford MD Unavailable Isac Pina MD Primary Care Provider [phone] Emma Gibson NETSUITE DEVELOPER, MANAGER WOMEN Unavailable + [phone] Denise White NETSUITE DEVELOPER, COLLATERAL CLERK Unavailable + [phone] Constance Garsia NETSUITE DEVELOPER, MANAGER WOMEN Unavailable Christian Christian NETSUITE DEVELOPER, MANAGER WOMEN Unavailable [phone] Dean Sauceda MD Unavailable +[phone] Reason for Visit * Reason Comments Medication Refill Encounter Details Date Type Department Care Team (Late st Contact Info) Description 05/08/2023 Refill [facility] - Internal Medicine - [place] [address] [place] [address] Flori Yeboah, PAC [address] [place] [address] Medication Refill Social History Tobacco Use [...] 19 06/06/2023 06/06/2023 06/16/2023 12:1 6 AM STORY TELLER RSV 06/06/2023 06/06/2023 07/04/2023 12:1 6 AM STORY TELLER documented as of this encounter Care Teams Lime Mixer Relationship Specialty Start Date End Date Flori Yeboah, [place] [address] [place] [address] PCP - General Physician Loom Mechanic 08/26/22 06/09/23 Isac Weathers MD [address] [place] [address] PCP - General Internal Medicine 06/10/23 Ramon Alford MD [address] [place] [address] Consulting Physician Cardiovascular Disease - Cardiology 09/14/22 04/30/24 Emma Gibson APRN, MANAGER WOMEN #2 [facility], [address] [place] [address] Nurse Practitioner Cardiology 07/05/23 12/04/24 Denise White APRN, COLLATERAL CLERK #2 [place] [address] Nurse Practitioner Advanced Practice Nurse 09/25/22 Constance Garsia APRN, MANAGER WOMEN #2 [place] [address] Nurse Practitioner Advanced Practice Nurse 12/02/22 Christian Christian APRN, MANAGER WOMEN #2 [place] [address] Nurse Practitioner Advanced Practice Nurse 10/19/23 Dean Sauceda MD #2 [place] [address] Consulting Physician Neurology 04/28/24 documented as of this encounter
--- OUTSIDE RECORDS SUMMARY | 2024-12-12 07:45 | XMS_ITS | Encounter Summary ---
Author Organization [facility] Address [facility] [place] [address] Care Team Providers Care Bobcat Driver/Labor Name Role Phone Tiffany Piedra MD Primary Care Provider + [phone] Jamil Castellanos MD Unavailable +[phone] Isac Weathers MD Primary Care Provider [phone] Encounter Details Date Type Department Care Team (Late st Contact Info) Description 06/29/2018 Pre-Procedure Call [place] Grounds Worker [place], [place] [id number] Murali Taylor MD Three [facility]. 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 No 2018 5:25 PM SCHOOL BOAT DRIVER Denise Moon RN Active documented in this encounter Plan of Treatment Not on file documented as of this encounter Visit Diagnoses Not on filedocumented in this encounter Care Teams Bobcat Driver/Labor Relationship Specialty Start Date End Date Tiffany Piedra MD PCP - General INTERNAL MEDICINE 07/22/17 05/23/22 Isac Weathers MD [address] [place] [address] PCP - General INTERNAL MEDICINE 05/24/22 Jamil Castellanos MD [facility] [place] [address] [place] [address] [place] Sheller CARDIOVASCULAR DISEASE 09/29/17 documented as of this encounter
--- OUTSIDE RECORDS SUMMARY | 2024-12-12 07:45 | XMS_ITS | Encounter Summary ---
Author Organization [facility] Address [address] [place] [facility] [place] [address] Phone Care Team Providers Care Smooth Plater Name Role Phone Flori Yeboah PAC Primary Care Pro vider Ramon Alford MD Unavailable UnaIsac Stubbs MD Primary Care Provider [phone] Emma Gibson PEST CONTROL SPECIALIST, FIRE EXTINGUISHER TESTER Unavailable + [phone] Denise White PEST CONTROL SPECIALIST, SLURRY PLANT OPERATOR Unavailable + [phone] Constance Garsia PEST CONTROL SPECIALIST, FIRE EXTINGUISHER TESTER Unavailable Christian Christian PEST CONTROL SPECIALIST, FIRE EXTINGUISHER TESTER Unavailable +[phone] Dean Sauceda MD Unavailable +[phone] Reason for Visit * Reason Comments Medication Refill Encounter Details Date Type Department Care Team (Late st Contact Info) Description 09/23/2022 Refill [facility] - Internal Medicine - [place] [address] [place] [address] Isac Weathers MD [address] [place] [address] Medication Refill Social History Tobacco Use [...] order placed on 08/24/2022 7:21 AM Order [id number]: celecoxib (CeleBREX) 200 MG Capsule (For orders [...] Office Visit Flori Yeboah PAC [facility] [place] Showing recent visits within past 365 days [...] 19 06/06/2023 06/06/2023 06/16/2023 12:1 6 AM HYDRAULIC TESTER RSV 06/06/2023 06/06/2023 07/04/2023 12:1 6 AM HYDRAULIC TESTER documented as of this encounter Care Teams Smooth Plater Relationship Specialty Start Date End Date Flori Yeboah PAC [address] [place] [address] PCP - General Physician Maintenance Service Dispatcher 08/26/22 06/09/23 Isac Weathers MD [address] [place] [address] PCP - General Internal Medicine 06/10/23 Ramon Alford MD [address] [place] [address] Consulting Physician Cardiovascular Disease - Cardiology 09/14/22 04/30/24 Emma Gibson, PEST CONTROL SPECIALIST, FIRE EXTINGUISHER TESTER #2 [facility], [address] [place] [address] Nurse Practitioner Cardiology 07/05/23 12/04/24 Denise White APRN, SLURRY PLANT OPERATOR #2 [place] [address] Nurse Practitioner Advanced Practice Nurse 09/25/22 Constance Garsia APRN, FIRE EXTINGUISHER TESTER #2 [place] [address] Nurse Practitioner Advanced Practice Nurse 12/02/22 Christian Christian APRN, FIRE EXTINGUISHER TESTER #2 [place] [address] Nurse Practitioner Advanced Practice Nurse 10/19/23 Dean Sauceda MD #2 [place] [address] Consulting Physician Neurology 04/28/24 documented as of this encounter
--- OUTSIDE RECORDS SUMMARY | 2024-12-12 07:45 | XMS_ITS | Encounter Summary ---
Author Organization [facility] Address [address] [place] [facility] [place] [address] Phone Care Team Providers Care Independent Sales Representative Name Role Phone Flori Yeboah PAC Primary Care Pro vider Ramon Alford MD Unavailable Isca Pina MD Primary Care Provider [phone] Emma Gibson PHYSICAL SECURITY ENGINEER, SUPERVISOR SMOKE CONTROL Unavailable + [phone] Denise White PHYSICAL SECURITY ENGINEER, HOUSE ADMIN Unavailable + [phone] Constance Garsia PHYSICAL SECURITY ENGINEER, SUPERVISOR SMOKE CONTROL Unavailable Christian Christian PHYSICAL SECURITY ENGINEER, SUPERVISOR SMOKE CONTROL Unavailable +[phone] Dean Sauceda MD Unavailable +[phone] Reason for Visit * Reason Comments Medication Refill Encounter Details Date Type Department Care Team (Late st Contact Info) Description 03/20/2023 Refill [facility] - Internal Medicine - [place] [address] [place] [address] Flori Yeboah, PAC [address] [place] [address] Medication Refill Social History Tobacco Use [...] Office Visit Flori Yeboah, [place] [facility] [place] 01/20/23 Office Visit Flori Yeboah, [place] [facility] [place] 12/14/22 Office Visit Flori Yeboah, PAC [facility] [place] 11/11/22 Office Visit Isac Weathers MD [facility] [place] 10/28/22 Office Visit Flori Yeboah, [place] [facility] [place] 10/12/22 Office Visit Flori Yeboah, [place] [facility] [place] 09/11/22 Office Visit Flori Yeboah, [place] [facility] [place] 08/26/22 Office Visit Flori Yeboah, [place] [facility] [place] Showing recent visits within past 365 days [...] 19 06/06/2023 06/06/2023 06/16/2023 12:1 6 AM LOCAL TRUCK DRIVER RSV 06/06/2023 06/06/2023 07/04/2023 12:1 6 AM LOCAL TRUCK DRIVER documented as of this encounter Care Teams Independent Sales Representative Relationship Specialty Start Date End Date Folri Yeboah PAC [address] [place] [address] PCP - General Physician Track Template Maker 08/26/22 06/09/23 Isac Weathers MD [address] [place] [address] PCP - General Internal Medicine 06/10/23 Ramon Alford MD [address] [place] [address] Consulting Physician Cardiovascular Disease - Cardiology 09/14/22 04/30/24 Emma Gibson APRN, SUPERVISOR SMOKE CONTROL #2 [facility] [address] [place] [address] Nurse Practitioner Cardiology 07/05/23 12/04/24 Denise White APRN, HOUSE ADMIN #2 [place] [address] Nurse Practitioner Advanced Practice Nurse 09/25/22 Constance Garsia APRN, SUPERVISOR SMOKE CONTROL #2 [place] [address] Nurse Practitioner Advanced Practice Nurse 12/02/22 Christian Christian APRN, ERIC #[address] [place] [address] Nurse Practitioner Advanced Practice Nurse 10/19/23 Dean Sauceda MD [address] [place] [address] Consulting Physician Neurology 04/28/24 documented as of this encounter
--- OUTSIDE RECORDS SUMMARY | 2024-12-12 07:45 | XMS_ITS | Encounter Summary ---
Author Organization [facility] Address [address] [facility] [place] [address] Phone Care Team Providers Care Broker In Charge Name Role Phone Flori Yeboah PAC Primary Care Pro vider Ramon Alford MD Unavailable Isac Pina MD Primary Care Provider [phone] Emma Gibson CARBON PAPER COATING MACHINE SETTER, SAFE AND VAULT INSTALLER Unavailable + [phone] Denise White CARBON PAPER COATING MACHINE SETTER, HEARING CARE PRACTITIONER Unavailable + [phone] Constance Garsia CARBON PAPER COATING MACHINE SETTER, SAFE AND VAULT INSTALLER Unavailable Christian Christian CARBON PAPER COATING MACHINE SETTER, SAFE AND VAULT INSTALLER Unavailable +[phone] Dean Sauceda MD Unavailable +[phone] Reason for Visit * Reason Comments Medication Refill Encounter Details Date Type Department Care Team (Late st Contact Info) Description 11/17/2022 Refill [facility] Medical/Surgical Intensive Care [address] [place] [address] Isac Weathers MD [address] [place] [address] Medication Refill Social History Tobacco Use [...] 19 06/06/2023 06/06/2023 06/16/2023 12:1 6 AM BUTTONHOLE FACER RSV 06/06/2023 06/06/2023 07/04/2023 12:1 6 AM BUTTONHOLE FACER documented as of this encounter Care Teams Broker In Charge Relationship Specialty Start Date End Date Flori Yeboah PAC [address] [facility] [place] [place] [address] PCP - General Physician Electronics Department Manager 08/26/22 06/09/23 Isac Weathers MD [address] [place] [address] PCP - General Internal Medicine 06/10/23 Ramon lAford MD [address] [place] [address] Consulting Physician Cardiovascular Disease - Cardiology 09/14/22 04/30/24 Emma Gibson APRN, SAFE AND VAULT INSTALLER #2 [facility], [address] [place] [address] Nurse Practitioner Cardiology 07/05/23 12/04/24 Denise White APRN, HEARING CARE PRACTITIONER #2 [place] [address] Nurse Practitioner Advanced Practice Nurse 09/25/22 Constance Garsia APRN, SAFE AND VAULT INSTALLER #2 [place] [address] Nurse Practitioner Advanced Practice Nurse 12/02/22 Christian Christian APRN, SAFE AND VAULT INSTALLER #2 [place] [address] Nurse Practitioner Advanced Practice Nurse 10/19/23 Dean Sauceda MD #2 [place] [address] Consulting Physician Neurology 04/28/24 documented as of this encounter
--- OUTSIDE RECORDS SUMMARY | 2024-12-12 07:45 | XMS_ITS | Encounter Summary ---
Author Organization [facility] Address [address] [place] [facility] [place] [address] Phone Care Team Providers Care Accounting Technician Name Role Phone Flori Yeboah PAC Primary Care Pro vider Ramon Alford MD Unavailable Isac Pina MD Primary Care Provider [phone] Emma Gibson ASSOCIATE DIRECTOR CAREER SERVICES, PAINT MIXER MACHINE Unavailable + [phone] Denise White ASSOCIATE DIRECTOR CAREER SERVICES, SUPERVISOR SILVERING DEPARTMENT Unavailable + [phone] Constance Garsia ASSOCIATE DIRECTOR CAREER SERVICES, PAINT MIXER MACHINE Unavailable Christian Christian ASSOCIATE DIRECTOR CAREER SERVICES, PAINT MIXER MACHINE Unavailable [phone] Dean Sauceda MD Unavailable +[phone] Reason for Visit * Reason Comments Medication Refill Encounter Details Date Type Department Care Team (Late st Contact Info) Description 11/05/2022 Refill [facility] Medical[facility]Surgical Intensive Care [address] [place] [address] Isac Weathers MD [address] [place] [address] Medication Refill Social History Tobacco Use [...] 19 06/06/2023 06/06/2023 06/16/2023 12:1 6 AM GROUND CREW SUPERVISOR RSV 06/06/2023 06/06/2023 07/04/2023 12:1 6 AM GROUND CREW SUPERVISOR documented as of this encounter Care Teams Accounting Technician Relationship Specialty Start Date End Date Flori Yeboah PAC [address] [place] [address] PCP - General Physician Coffee Urn Attendant 08/26/22 06/09/23 Isac Weathers MD [address] [place] [address] PCP - General Internal Medicine 06/10/23 Ramon Alford MD [address] [address] Consulting Physician Cardiovascular Disease - Cardiology 09/14/22 04/30/24 Emma Gibson, ASSOCIATE DIRECTOR CAREER SERVICES, PAINT MIXER MACHINE #2 [place] [address] Nurse Practitioner Cardiology 07/05/23 12/04/24 Denise White, ASSOCIATE DIRECTOR CAREER SERVICES, SUPERVISOR SILVERING DEPARTMENT #[address] [place] [address] Nurse Practitioner Advanced Practice Nurse 09/25/22 Constance Garsia APRN, PAINT MIXER MACHINE #2 [place] [address] Nurse Practitioner Advanced Practice Nurse 12/02/22 Christian Christian, ASSOCIATE DIRECTOR CAREER SERVICES, PAINT MIXER MACHINE #2 [place] [address] Nurse Practitioner Advanced Practice Nurse 10/19/23 Dean Sauceda MD #2 [place] [address] Consulting Physician Neurology 04/28/24 documented as of this encounter
--- OUTSIDE RECORDS SUMMARY | 2024-12-12 07:45 | XMS_ITS | Encounter Summary ---
Author Organization [facility] Address [address] [place] [address] Phone Care Team Providers Care Teamcenter Solution Architect Name Role Phone Ramon Alford MD Unavailable [facility] Isac Granda MD Primary Care Provider [phone] Emma Gibson HEALTH AND WELLNESS ADVISOR, MEDICAL INTERN Unavailable + [phone] Denise White HEALTH AND WELLNESS ADVISOR, FRONT DESK MANAGER Unavailable [phone] Constance Garsia HEALTH AND WELLNESS ADVISOR, MEDICAL INTERN Unavailable Christian Christian HEALTH AND WELLNESS ADVISOR, MEDICAL INTERN Unavailable +[phone] Dean Sauceda MD Unavailable +[phone] Reason for Visit * Reason Comments Medication Refill Encounter Details Date Type Department Care Team (Late st Contact Info) Description 07/31/2023 Refill [facility] - Internal Medicine - [place] [address] [place] [address] Isac Weathers MD [address] [place] [address] Medication Refill Social History Tobacco Use Types Packs/Day Years Used Date Smoking Tobacco: Never Passive Smoke Exposure: Never Smokeless Tobacco: Never Alcohol Use Standard Drinks/Week Comments Yes 0 (1 standard drink = 0.6 oz pur e alcohol) Occasional [facility] Utilities Answer Date Recorded In the past [...] often do you attend chur ch or holiness services? More than 4 times per year 07/14/2023 Do you belong to any clubs o r organizations such as restorationist groups, unions, fraternal or athletic groups, or [...] Total Score - Questions 1-9 0 06/25 [facility] - Occupational [...] place to sleep or slept in a mcc (including now)? No 07/14/2023 Sexually Active Control [...] Dept 07/14/23 Office Visit Isac Weathers MD [facility] 03/17/23 Office Visit Flori Yeboah PAC [facility] [place] 01/20/23 Office Visit Flori Yeboah, PAC [facility] [place] 12/14/22 Office Visit Flori Yeboah, PAC [facility] [place] 11/11/22 Office Visit Isac Weathers MD [facility] [place] 10/28/22 Office Visit Flori Yeboah, PAC [facility] [place] 10/12/22 Office Visit Flori Ybeoah, PAC [facility] [place] 09/11/22 Office Visit Flori Yeboah, PAC [facility] [place] 08/26/22 Office Visit Flori Yeboah, PAC [facility] [place] Showing recent visits within past 365 days and meeting all other requirements Future Appointments Date Type Provider Dept 08/17/23 Appointment Isac Weathers MD [facility] [place] 09/17/23 Appointment Flori Yeboah, PAC [facility] [place] Showing future appointments within next 90 days [...] Depression Total Score: 0 07/14/19 10:17 AM SOW MANAGER documented as of this encounter Care Teams Teamcenter Solution Architect Relationship Specialty Start Date End Date Isac Weathers MD [address] [place] [address] PCP - General Internal Medicine 06/10/23 Ramon Alford MD Consulting Physician Cardiovascular Disease - Cardiology 09/14/22 04/30/24 Emma Gibson, HEALTH AND WELLNESS ADVISOR, MEDICAL INTERN #[address] [address] Nurse Practitioner Cardiology 07/05/23 12/04/24 Denise White, HEALTH AND WELLNESS ADVISOR, FRONT DESK MANAGER [address]2 [place] [address] Nurse Practitioner Advanced Practice Nurse 09/25/22 Constance Garsia HEALTH AND WELLNESS ADVISOR, MEDICAL INTERN #2 [place] [address] Nurse Practitioner Advanced Practice Nurse 12/02/22 Christian Christian, HEALTH AND WELLNESS ADVISOR, MEDICAL INTERN [address] [place] [address] Nurse Practitioner Advanced Practice Nurse 10/19/23 Dean Sauceda MD [address] [place] [id number] Consulting Physician Neurology 04/28/24 documented as of this encounter
--- OUTSIDE RECORDS SUMMARY | 2024-12-12 07:46 | XMS_ITS | Encounter Summary ---
Author Organization [facility] Address [address] [place] [address] Phone Care Team Providers Care Private Duty Aide Name Role Phone Flori Yeboah PAC Primary Care Pro vider Ramon Alford MD Unavailable Isac Pina MD Primary Care Provider [phone] Emma Gibson VENEER REPAIRER MACHINE, EAR MACHINE OPERATOR Unavailable + [phone] Denise White VENEER REPAIRER MACHINE, FOREPART RASPER Unavailable + [phone] Constance Garsia VENEER REPAIRER MACHINE, EAR MACHINE OPERATOR Unavailable Christian Christian VENEER REPAIRER MACHINE, EAR MACHINE OPERATOR Unavailable [phone] Dean Sauceda MD Unavailable +[phone] Reason for Visit * Reason Comments Medication Refill Encounter Details Date Type Department Care Team (Late st Contact Info) Description 10/28/2022 Refill [facility] - Internal Medicine - [place] [address] [place] [address] Flori Yeboah, PAC [address] [place] [address] Medication Refill Social History Tobacco [...] Office Visit Flori Yeboah PAC [facility] [place] 10/12/22 Office Visit Flori Yeboah PAC [facility] [place] 09/11/22 Office Visit Flori Yeboah PAC [facility] [place] 08/26/22 Office Visit Flori Yeboah PAC [facility] [place] Showing recent visits within past 365 days and meeting all other requirements Future Appointments Date Type Provider Dept 11/11/22 Appointment Isac Weathers MD [facility] [place] 11/18/22 Appointment Flori Yeboah PAC [facility] [place] Showing future appointments within next 90 days and meeting all other requirements documented in this encounter Plan of Treatment Not on file documented as of this encounter Visit Diagnoses Not on filedocumented in this encounter Additional Health Concerns Infection Onset Date Last Indicated Resolved Time C. difficile Rule-Out 10/28/2022 10/28/20222022 6:05 PM CDT COVID - 19 06/06/2023 06/06/2023 06/16/2023 12:1 6 AM FIRE APPARATUS ENGINEER RSV 06/06/2023 06/06/2023 07/04/2023 12:1 6 AM FIRE APPARATUS ENGINEER documented as of this encounter Care Teams Private Duty Aide Relationship Specialty Start Date End Date Flori Yeboah, [place] [address] [place] [address] PCP - General Physician Motorcycle Assembler 08/26/22 06/09/23 Isac Weathers MD [address] [place] [address] PCP - General Internal Medicine 06/10/23 Ramon Alford MD [address] [place] [address] Consulting Physician Cardiovascular Disease - Cardiology 09/14/22 04/30/24 Emma Gibson APRN, EAR MACHINE OPERATOR #2 [facility] [address] [place] [address] Nurse Practitioner Cardiology 07/05/23 12/04/24 Denise White APRN, FOREPART RASPER #2 [place] [address] Nurse Practitioner Advanced Practice Nurse 09/25/22 Constance Garsia APRN, EAR MACHINE OPERATOR #2 [place] [address] Nurse Practitioner Advanced Practice Nurse 12/02/22 Christian Christian APRN, ERIC [address] [place] [address] Nurse Practitioner Advanced Practice Nurse 10/19/23 Dean Sauceda MD #[address] [place] [address] Consulting Physician Neurology 04/28/24 documented as of this encounter
--- OUTSIDE RECORDS SUMMARY | 2024-12-12 07:46 | XMS_ITS | Referral Summary ---
Author Organization [facility] [address] [facility] Address [address] [place] [address] Care Team Providers Care Fitness Assistant Name Role Phone Faraz Burch MD Unavailable [phone] Isac Weathers MD Primary Care Provider [phone] Allergies No known active allergies Medications methylsulfonylme vidal 1,000 mg tablet Take by mouth Active bbinliip-lhuy-JW -calcium-mins 18 mg iron-400 mcg-450 mg Ca [...] 07/14 Assessment & Plan (07/14/2022 5:17 PM DIANETICIST): 82-year-old gentleman who is a new patient to me. His previous primary care physician is retiring. Is seeing a physician in [place]. Patient's no acute distress he communicates well he has no evidence of dementia. 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 Dizziness 07/14/2022 Assessment & Plan (07/14/2022 5:19 PM DIANETICIST): Patient is 82 years old he describes [...] stenosis Assessment & Plan (07/14/2022 5:18 PM DIANETICIST): Patient advised me he is a history of spinal stenosis he does not associated in his symptoms presently with this diagnosis Atopic rhinitis 04/06/2013 Overview (08/26/2016): Allergic rhinitis Cataract of both eyes 04/06/2013 Overview (08/26/2016): Cataracts, bilateral Generalized osteoarthritis 04/06/2013 Overview (08/28/2016): Osteoarthritis, generalized Assessment & Plan (07/14/2022 5:20 PM DIANETICIST): Patient describes having osteoarthritis for knees and hips in the past not active problem at this time 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 Recurrent coronary arteriosc lerosis after percutaneous transluminal coronary angioplasty 04/06/2013 Overview (08/27/2016): CAD S/P percutaneous coronary angioplasty Benign prostatic hyperplasia 04/06/2013 Overview (08/27/2016): BPH (benign prostatic hypertrophy) Assessment & Plan (07/14/2022 5:18 PM DIANETICIST): Patient is asymptomatic discussed why we do [...] Overview (08/27/2016): Erectile dysfunction Coronary arteriosclerosis in [place] artery 07/15 Overview (08/27/2016): CRNRY ATHRSCL NATVE VSSL Assessment & Plan (07/14/2022 5:17 PM DIANETICIST): Patient's stents placement approximate 9 years ago [...] on file Legal Sex Male 12:31 AM DIANETICIST Gender Identity Not on file Sexual Orientation Not on file Last Filed Vital Signs Vital Sign Reading Time Taken Comments Blood Pressure 103/58 11/12/2023 9:31 AM CDT Pulse 68 11/12/2023 9:31 AM CDT Temperature 36.3 C (97.3 F) 07/14/2022 12:59 PM DIANETICIST Respiratory Rate 18 11/12/2023 9:31 AM CDT Oxygen Saturation 96% 11/12/2023 9:31 AM CDT Inhaled Oxygen Concentration - - Weight 73.5 kg (162 lb) 11/12/2023 9:31 AM CDT Height 175.3 cm (5' 9) 11/12/2023 9:31 AM CDT Body Mass Index 23.92 11/12/2023 9:31 AM CDT Plan of Treatment Not on file Insurance [facility] Advance Directives For more information, please contact: [phone] Documents on File Type Date Recorded Patient Manager Night Expl anation ADVANCE DIRECTIVE 05/08/2019 8:14 AM Care Teams Fitness Assistant Relationship Specialty Start Date End Date Faraz Burch MD [address] [place] [address] [address] - [facility] Attributed PCP 04/23/19 Isac Weathers MD [address] [place] [address] PCP - General Internal Medicine 11/02/22
--- OUTSIDE RECORDS SUMMARY | 2024-12-12 07:46 | XMS_ITS | Clinical Summary ---
Author Organization [facility] [address] [facility] Address [address] [place] [address] Care Team Providers Care Public Events Facilities Rental Manager Name Role Phone Faraz Burch MD Unavailable [phone] Isac Weathers MD Primary Care Provider [phone] Allergies No known active allergies Medications methylsulfonylme vidal 1,000 mg tablet Take by mouth Active jpfnzcoo-jfcv-GY -calcium-mins 18 mg iron-400 mcg-450 mg Ca [...] 07/14 Assessment & Plan (07/14/2022 5:17 PM SOCIAL ORGANIZATION PROFESSOR): 82-year-old gentleman who is a new patient to me. His previous primary care physician is retiring. Is seeing a physician in [place]. Patient's no acute distress he communicates well he has no evidence of dementia. 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 Dizziness 07/14/2022 Assessment & Plan (07/14/2022 5:19 PM SOCIAL ORGANIZATION PROFESSOR): Patient is 82 years old he describes [...] stenosis Assessment & Plan (07/14/2022 5:18 PM SOCIAL ORGANIZATION PROFESSOR): Patient advised me he is a history of spinal stenosis he does not associated in his symptoms presently with this diagnosis Atopic rhinitis 04/06/2013 Overview (08/26/2016): Allergic rhinitis Cataract of both eyes 04/06/2013 Overview (08/26/2016): Cataracts, bilateral Generalized osteoarthritis 04/06/2013 Overview (08/28/2016): Osteoarthritis, generalized Assessment & Plan (07/14/2022 5:20 PM SOCIAL ORGANIZATION PROFESSOR): Patient describes having osteoarthritis for knees and hips in the past not active problem at this time 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 Recurrent coronary arteriosc lerosis after percutaneous transluminal coronary angioplasty 04/06/2013 Overview (08/27/2016): CAD S/P percutaneous coronary angioplasty Benign prostatic hyperplasia 04/06/2013 Overview (08/27/2016): BPH (benign prostatic hypertrophy) Assessment & Plan (07/14/2022 5:18 PM SOCIAL ORGANIZATION PROFESSOR): Patient is asymptomatic discussed why we do [...] Overview (08/27/2016): Erectile dysfunction Coronary arteriosclerosis in [place] artery 07/15 Overview (08/27/2016): SAMANTHA ATHYIN NATVE VSSL Assessment & Plan (07/14/2022 5:17 PM SOCIAL ORGANIZATION PROFESSOR): Patient's stents placement approximate 9 years ago [...] on file Legal Sex Male 12:31 AM SOCIAL ORGANIZATION PROFESSOR Gender Identity Not on file Sexual Orientation Not on file Obstetrics History Last Filed Vital Signs Vital Sign Reading Time Taken Comments Blood Pressure 103/58 11/12/2023 9:31 AM CDT Pulse 68 11/12/2023 9:31 AM CDT Temperature 36.3 C (97.3 F) 07/14/2022 12:59 PM SOCIAL ORGANIZATION PROFESSOR Respiratory Rate 18 11/12/2023 9:31 AM CDT [...] vaccine 65+ Completed 020, 06/26/2013, 07/15/2010 Insurance [facility] [place] [id number] Advance Directives For more information, please contact: [phone] Documents on File Type Date Recorded Patient Chick Room Supervisor Expl anation ADVANCE DIRECTIVE 05/08/2019 8:14 AM Care Teams Public Events Facilities Rental Manager Relationship Specialty Start Date End Date Faraz Burch MD [address] [place] [address] PCP - [facility] PCP 04/23/19 Isac Weathers MD [address] [place] [address] PCP - General Internal Medicine 11/02/22
--- OUTSIDE RECORDS SUMMARY | 2024-12-12 07:46 | XMS_ITS | Encounter Summary ---
Author Organization [facility] Address [address] [facility] [place] [address] Phone Care Team Providers Care Healthcare Economics Consultant Name Role Phone Flori Yeboah PAC Primary Care Pro vider Ramon Alford MD Unavailable UnaIsac Stubbs MD Primary Care Provider [phone] Emma Gibson CAREER RESOURCE TECHNICIAN, INK BLENDER Unavailable + [phone] Denise White CAREER RESOURCE TECHNICIAN, SURGICAL SCRUB TECH Unavailable + [phone] Constance Garsia CAREER RESOURCE TECHNICIAN, INK BLENDER Unavailable Christian Christian CAREER RESOURCE TECHNICIAN, INK BLENDER Unavailable [phone] Dean Sauceda MD Unavailable [phone] Reason for Visit * Reason Comments Medication Refill Encounter Details Date Type Department Care Team (Late st Contact Info) Description 09/28/2022 Refill [facility] - Internal Medicine - [place] [address] [place] [address] Isac Weathers MD [address] [place] [address] Medication Refill Social History Tobacco Use [...] Office Visit Flori Yeboah PAC [facility] [place] 08/26/22 Office Visit Flori Yeboah PAC [facility] [place] Showing recent visits within past 365 days and meeting all other requirements Future Appointments Date Type Provider Dept 10/12/22 Appointment Flori Yeboah PAC [facility] [place] Showing future appointments within next 90 days [...] Office Visit Flori Yeboah, BELG[place] [facility] [place] 08/26/22 Office Visit Flori Yeboah, [place] [facility] [place] Showing recent visits within past 365 days and meeting all other requirements Future Appointments Date Type Provider Dept 10/12/22 Appointment Flori Yeboah, [place] [facility] [place] Showing future appointments within next 90 days and meeting all other requirements documented in this encounter Plan of Treatment Not on file documented as of this encounter Visit Diagnoses Not on filedocumented in this encounter Additional Health Concerns Infection Onset Date Last Indicated Resolved Time C. difficile Rule-Out 10/28/2022 10/28/20222022 6:05 PM CDT COVID - 19 06/06/2023 06/06/2023 06/16/2023 12:1 6 AM COUNTERINTELLIGENCE AGENT RSV 06/06/2023 06/06/2023 07/04/2023 12:1 6 AM COUNTERINTELLIGENCE AGENT documented as of this encounter Care Teams Healthcare Economics Consultant Relationship Specialty Start Date End Date Flori Yeboah PAC [address] [place] [address] PCP - General Physician Stripe Matcher 08/26/22 06/09/23 Isac Weathers MD [address] [place] [address] PCP - General Internal Medicine 06/10/23 Ramon Alford MD [address] [place] [address] Consulting Physician Cardiovascular Disease - Cardiology 09/14/22 04/30/24 Emma Gibson, CAREER RESOURCE TECHNICIAN, INK BLENDER [address] [facility] [place] [address] Nurse Practitioner Cardiology 07/05/23 12/04/24 Denise White, CAREER RESOURCE TECHNICIAN, SURGICAL SCRUB TECH [address] [place] [address] Nurse Practitioner Advanced Practice Nurse 09/25/22 Constance Garsia APRN, INK BLENDER [address] [place] [address] Nurse Practitioner Advanced Practice Nurse 12/02/22 Christian Christian CAREER RESOURCE TECHNICIAN, INK BLENDER [address] [place] [address] Nurse Practitioner Advanced Practice Nurse 10/19/23 Dean Sauceda MD [address] [place] [id number] Consulting Physician Neurology 04/28/24 documented as of this encounter
[2024-12-12 08:15] LABS: Hematocrit 38.5 % (42.0-52.0); Hemoglobin 12.8 g/dL (14.0-18.0); Immature Granulocyte Percent A 0.2 % (0-0.5); Immature Platelet Fraction Pct 4.4 % (0.9-11.2); Lymphocytes Absolute Auto 1.84 K/mm3 (0.9-3.2); Mean Corpuscular HGB Conc 33.2 g/dl (32-36); Mean Corpuscular Hemoglobin 31.4 pg (26-34); Mean Corpuscular Volume 94.4 fl (80-100); Nucleated Red Blood Cells Absolute Auto 0.000 K/mm3 (0.0-0.012); Nucleated Red Blood Cells Perc 0.0 % (0.0-0.2); Platelet Count Result 141 k/mm3 (150-375); Red Blood Count 4.08 M/mm3 (4.6-6.20); White Blood Count 5.0 K/mm3 (4.5-10.0)
[2024-12-12 08:40] LABS: Iron 90 ug/dL (49-181)
[2024-12-12 08:52] LABS: Percent Iron Saturation 32 % (20-50)
[2024-12-12 09:22] LABS: Ferritin 95.80 ng/mL (11.1-264)
== END 2024-12-12 07:39 | disposition home or self-care (01) ==
PROVIDERS: PCP Family Medicine; Visit Provider Family Medicine
DX: D64.9 Anemia, unspecified (principal); R06.02 Shortness of breath
CPT/HCPCS: 36415; 82728; 83540; 83550; 85025; 85055

== ENCOUNTER 2025-03-06 09:57 | Outpatient (CLI) | payer OTHER, SELFPAY ==
[2025-03-06 10:09] LABS: Hematocrit 38.0 % (42.0-52.0); Hemoglobin 12.7 g/dL (14.0-18.0); Immature Granulocyte Percent A 0.3 % (0-0.5); Lymphocytes Absolute Auto 2.04 K/mm3 (0.9-3.2); Mean Corpuscular HGB Conc 33.4 g/dl (32-36); Mean Corpuscular Hemoglobin 31.4 pg (26-34); Mean Corpuscular Volume 93.8 fl (80-100); Nucleated Red Blood Cells Absolute Auto 0.000 K/mm3 (0.0-0.012); Nucleated Red Blood Cells Perc 0.0 % (0.0-0.2); Platelet Count Result 159 k/mm3 (150-375); Red Blood Count 4.05 M/mm3 (4.6-6.20); White Blood Count 6.5 K/mm3 (4.5-10.0)
[2025-03-06 10:35] LABS: Alanine Aminotransferase 15 U/L (6-50); Albumin Level 3.9 g/dL (3.5-5.1); Alkaline Phosphatase 80 U/L (38-126); Anion Gap 5 mmol/L (4-12); Aspartate Amino Transferase 32 U/L (17-59); Bilirubin,Total 0.7 mg/dL (0.2-1.3); Blood Urea Nitrogen 14 mg/dL (9-20); Calcium 9.0 mg/dL (8.4-10.2); Carbon Dioxide 33 mmol/L (22-30); Chloride 99 mmol/L (98-107); Estimated Glomerular Filt Rate > 60; Glucose 95 mg/dL (65-110); Potassium 4.3 mmol/L (3.4-5.0); Sodium 137 mmol/L (137-145); Total Protein 7.5 g/dL (6.3-8.2)
--- OUTSIDE RECORDS SUMMARY | 2025-03-06 11:09 | XMS_ITS | Encounter Summary ---
Author Organization [facility] Address [address] [place] [address] Phone Care Team Providers Care Dredge Pipe Operator Name Role Phone Ramon Alford MD Unavailable Isac Pina MD Primary Care Provider [phone] Emma Gibson DETECTIVE INVESTIGATOR, MARINE STEAM FITTER HELPER Unavailable + [phone] Denise White DETECTIVE INVESTIGATOR, BUSINESS LEADER Unavailable + [phone] Constance Garsia DETECTIVE INVESTIGATOR, MARINE STEAM FITTER HELPER Unavailable Christian Christian DETECTIVE INVESTIGATOR, MARINE STEAM FITTER HELPER Unavailable [phone] Dean Sauceda MD Unavailable [phone] Reason for Visit * Reason Comments Medication Refill Encounter Details Date Type Department Care Team (Late st Contact Info) Description 10/02/2023 Refill [facility] - Internal Medicine - [place] [address] [place] [address] Flori Yeboah, [place] [address] [place] [address] Medication Refill Social History Tobacco Use Types Packs/Day Years Used Date Smoking Tobacco: Never Passive Smoke Exposure: Never Smokeless Tobacco: Never Alcohol Use Standard Drinks/Week Comments Yes 0 (1 standard drink = 0.6 oz pur e alcohol) Occasional [facility] Utilities Answer Date Recorded In the [...] Never 09/14/2023 How often do you attend orthodoxy or anglican serv ices? Never 09/14/2023 Do you belong to any clubs o r organizations such as orthodoxy groups, unions, fraternal or athletic groups, or [...] Total Score - Questions 1-9 0 06/25 [facility] [place] of Occupat ional Health - Occupational Stress [...] Visit Edilia Flori [place], PAC [facility] [place] 09/20/23 Office Visit Nina Yeboahalesha Walker, PAC [facility] [place] 08/17/23 Office Visit Isac Weathers MD [facility] [place] 07/14/23 Office Visit Isac Weathers MD [facility] [place] 03/17/23 Office Visit Nina Yeboahalesha Walker, PAC [facility] [place] 01/20/23 Office Visit Edilia Flori Walker, PAC [facility] [place] 12/14/22 Office Visit EdiliaFlori monteiro, PAC [facility] [place] 11/11/22 Office Visit Isac Weathers MD [facility] [place] 10/28/22 Office Visit Edilia Flori Walker, PAC [facility] [place] 10/12/22 Office Visit Nina Yeboahney Denise, PAC [facility] [place] Showing recent visits within past 365 days and meeting all other requirements Future Appointments Date Type Provider Dept 11/17/23 Appointment Isac Weathers MD [facility] [place] Showing future appointments within next 90 days and meeting all other requirements documented in this encounter Plan of Treatment Not on file documented as of this encounter Visit Diagnoses Not on filedocumented in this encounter Additional Health Concerns Assessment Noted Time PHQ-9 Depression Total Score: 0 07/14/19 10:17 AM YARD PILOT documented as of this encounter Care Teams Dredge Pipe Operator Relationship Specialty Start Date End Date Isac Weathers MD PCP - General Internal Medicine 06/10/23 Ramon Alford MD Consulting Physician Cardiovascular Disease - Cardiology 09/14/22 04/30/24 Emma Gibson, DETECTIVE INVESTIGATOR, MARINE STEAM FITTER HELPER [address] [facility] [place] [address] Nurse Practitioner Cardiology 07/05/23 12/04/24 Denise White APRN, BUSINESS LEADER [address] [place] [address] Nurse Practitioner Advanced Practice Nurse 09/25/22 Constance Garsia DETECTIVE INVESTIGATOR, MARINE STEAM FITTER HELPER [address] [place] [address] Nurse Practitioner Advanced Practice Nurse 12/02/22 Christian Christian APRN, MARINE STEAM FITTER HELPER [address] [place] [address] Nurse Practitioner Advanced Practice Nurse 10/19/23 Dean Sauceda MD [address] [place] [id number] Consulting Physician Neurology 04/28/24 documented as of this encounter
--- OUTSIDE RECORDS SUMMARY | 2025-03-06 11:09 | XMS_ITS | Clinical Summary ---
Author Organization [facility] 155 [facility] Address [address] [place] [address] Care Team Providers Care Conference Interpreter Name Role Phone Faraz Burch MD Unavailable [phone] Isac Weathers MD Primary Care Provider [phone] Allergies No known active allergies Medications methylsulfonylme vidal 1,000 mg tablet Take by mouth Active uyftpqhu-hfxv-UO -calcium-mins 18 mg iron-400 mcg-450 mg Ca [...] 07/14 Assessment & Plan (07/14/2022 5:17 PM LAN SPECIALIST): 82-year-old gentleman who is a new patient to me. His previous primary care physician is retiring. Is seeing a physician in [place]. Patient's no acute distress he communicates well he has no evidence of dementia. 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 Dizziness 07/14/2022 Assessment & Plan (07/14/2022 5:19 PM LAN SPECIALIST): Patient is 82 years old he describes [...] stenosis Assessment & Plan (07/14/2022 5:18 PM LAN SPECIALIST): Patient advised me he is a history of spinal stenosis he does not associated in his symptoms presently with this diagnosis Atopic rhinitis 04/06/2013 Overview (08/26/2016): Allergic rhinitis Cataract of both eyes 04/06/2013 Overview (08/26/2016): Cataracts, bilateral Generalized osteoarthritis 04/06/2013 Overview (08/28/2016): Osteoarthritis, generalized Assessment & Plan (07/14/2022 5:20 PM LAN SPECIALIST): Patient describes having osteoarthritis for knees and hips in the past not active problem at this time 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 Recurrent coronary arteriosc lerosis after percutaneous transluminal coronary angioplasty 04/06/2013 Overview (08/27/2016): CAD S/P percutaneous coronary angioplasty Benign prostatic hyperplasia 04/06/2013 Overview (08/27/2016): BPH (benign prostatic hypertrophy) Assessment & Plan (07/14/2022 5:18 PM LAN SPECIALIST): Patient is asymptomatic discussed why we do [...] Overview (08/27/2016): Erectile dysfunction Coronary arteriosclerosis in [place] artery 07/15 Overview (08/27/2016): SAMANTHA ATHYIN NATVE VSSL Assessment & Plan (07/14/2022 5:17 PM LAN SPECIALIST): Patient's stents placement approximate 9 years ago [...] ms Hx Other Medical 1961 Arthritis - Amry Kate k Hx Other Medical 1985 [place] [...] on file Legal Sex Male 12:31 AM LAN SPECIALIST Gender Identity Not on file Sexual Orientation Not on file Obstetrics History Last Filed Vital Signs Vital Sign Reading Time Taken Comments Blood Pressure 103/58 11/12/2023 9:31 AM CDT Pulse 68 11/12/2023 9:31 AM CDT Temperature 36.3 C (97.3 F) 07/14/2022 12:59 PM LAN SPECIALIST Respiratory Rate 18 11/12/2023 9:31 AM CDT [...] vaccine 65+ Completed 020, 06/26/2013, 07/15/2010 Insurance [facility] [place] [id number] Advance Directives For more information, please contact: [phone] Documents on File Type Date Recorded Patient Retail General Manager Expl anation ADVANCE DIRECTIVE 05/08/2019 8:14 AM Care Teams Conference Interpreter Relationship Specialty Start Date End Date Faraz Burch MD [address] [place] [address] PCP - [facility] PCP 04/23/19 Isac Weathers MD [address] [place] [address] PCP - General Internal Medicine 11/02/22
--- OUTSIDE RECORDS SUMMARY | 2025-03-06 11:09 | XMS_ITS | Encounter Summary ---
Author Organization [facility] Address [address] [facility] [place] [address] Phone Care Team Providers Care Telephone Service Representative Name Role Phone Flori Yeboah PAC Primary Care Pro vider Ramon Alford MD Unavailable Unageovanna Isac Granda MD Primary Care Provider [phone] Emma Gibson SQUAD SERGEANT, WAREHOUSE ORDER FILLER Unavailable + [phone] Denise White SQUAD SERGEANT, MAJOR APPLIANCE ASSEMBLY SUPERVISOR Unavailable + [phone] Constance Garsia APRN, WAREHOUSE ORDER FILLER Unavailable Christian Christian SQUAD SERGEANT, WAREHOUSE ORDER FILLER Unavailable [phone] Dean Sauceda MD Unavailable [phone] Reason for Visit * Reason Comments Medication Refill Encounter Details Date Type Department Care Team (Late st Contact Info) Description 11/05/2022 Refill [facility] Medical/Surgical Intensive Care [address] [place] [address] Isac Weathers MD [address] [place] [address] Medication Refill Social History Tobacco Use Types [...] 19 06/06/2023 06/06/2023 06/16/2023 12:1 6 AM MACHINE TANK OPERATOR RSV 06/06/2023 06/06/2023 07/04/2023 12:1 6 AM MACHINE TANK OPERATOR documented as of this encounter Care Teams Telephone Service Representative Relationship Specialty Start Date End Date Flori Yeboah PAC PCP - General Physician Tape Machine Tailer 08/26/22 06/09/23 Isac Weathers MD PCP - General Internal Medicine 06/10/23 Ramon Alford MD Consulting Physician Cardiovascular Disease - Cardiology 09/14/22 04/30/24 Emma Gibson, SQUAD SERGEANT, WAREHOUSE ORDER FILLER [facility] [address] [address] Nurse Practitioner Cardiology 07/05/23 12/04/24 Denise White SQUAD SERGEANT, [facility] [address] [place] [address] Nurse Practitioner Advanced Practice Nurse 09/25/22 Constance Garsia SQUAD SERGEANT, WAREHOUSE ORDER FILLER [address] [place] [address] Nurse Practitioner Advanced Practice Nurse 12/02/22 Christian Christian SQUAD SERGEANT, WAREHOUSE ORDER FILLER [address] [place] [address] Nurse Practitioner Advanced Practice Nurse 10/19/23 Dean Sauceda MD [address] [place] [id number] Consulting Physician Neurology 04/28/24 documented as of this encounter
--- OUTSIDE RECORDS SUMMARY | 2025-03-06 11:09 | XMS_ITS | Encounter Summary ---
Author Organization [facility] Address [address] [place] [address] Phone Care Team Providers Care Compound Mixer Name Role Phone Ramon Alford MD Unavailable [facility] Isac Granda MD Primary Care Provider [phone] Emma Gibson TEST MAN, PULMONARY NURSE PRACTITIONER Unavailable + [phone] Denise White TEST MAN, CARGO AND RAMP SERVICES MANAGER Unavailable + [phone] Constance Garsia TEST MAN, PULMONARY NURSE PRACTITIONER Unavailable Christian Christian TEST MAN, PULMONARY NURSE PRACTITIONER Unavailable [phone] Dean Sauceda MD Unavailable [phone] Reason for Visit * Reason Comments Medication Refill Encounter Details Date Type Department Care Team (Late st Contact Info) Description 07/31/2023 Refill [facility] - Internal Medicine - [place] [address] [place] [address] Isac Weathers MD [address] [place] [address] Medication Refill Social History Tobacco Use Types Packs/Day Years Used Date Smoking Tobacco: Never Passive Smoke Exposure: Never Smokeless Tobacco: Never Alcohol Use Standard Drinks/Week Comments Yes 0 (1 standard drink = 0.6 oz pur e alcohol) Occasional [facility] Utilities Answer Date Recorded In [...] often do you attend chur ch or scientology services? More than 4 times per year 07/14/2023 Do you belong to any clubs o r organizations such as temple groups, unions, fraternal or athletic groups, or [...] Total Score - Questions 1-9 0 06/25 [facility] [place] of Occupat ional Health - Occupational Stress [...] slept in a half-way (including now)? No 07/14/2023 Sexually Active Control [...] Dept 07/14/23 Office Visit Isac Weathers MD [facility] 03/17/23 Office Visit Flori Yeboah, PAC [facility] [place] 01/20/23 Office Visit Flori Yeboah, PAC [facility] [place] 12/14/22 Office Visit Flori Yeboah, PAC [facility] [place] 11/11/22 Office Visit Isac Weathers MD [facility] [place] 10/28/22 Office Visit Flori Yeboah, PAC [facility] [place] 10/12/22 Office Visit Flori Yeboah, PAC [facility] [place] 09/11/22 Office Visit Flori Yeboah, PAC [facility] [place] 08/26/22 Office Visit Flori Yeboah, PAC [facility] [place] Showing recent visits within past 365 days and meeting all other requirements Future Appointments Date Type Provider Dept 08/17/23 Appointment Isac Weathers MD [facility] [place] 09/17/23 Appointment Flori Yeboah, PAC [facility] [place] Showing future appointments within next 90 days [...] Depression Total Score: 0 07/14/19 10:17 AM HAZARDOUS MATERIALS TANKER DRIVER documented as of this encounter Care Teams Compound Mixer Relationship Specialty Start Date End Date Isac Weathers MD PCP - General Internal Medicine 06/10/23 Ramon Alford MD Consulting Physician Cardiovascular Disease - Cardiology 09/14/22 04/30/24 Emma Gibson, TEST MAN, PULMONARY NURSE PRACTITIONER [address] [facility] [address] [place] [address] Nurse Practitioner Cardiology 07/05/23 12/04/24 Denise White, TEST MAN, CARGO AND RAMP SERVICES MANAGER [address] [place] [address] Nurse Practitioner Advanced Practice Nurse 09/25/22 Constance Garsia, TEST MAN, PULMONARY NURSE PRACTITIONER [address] [place] [address] Nurse Practitioner Advanced Practice Nurse 12/02/22 Christian Christian, TEST MAN, PULMONARY NURSE PRACTITIONER [address] [place] [address] Nurse Practitioner Advanced Practice Nurse 10/19/23 Dean Sauceda MD [address] [place] [address] Consulting Physician Neurology 04/28/24 documented as of this encounter
--- OUTSIDE RECORDS SUMMARY | 2025-03-06 11:09 | XMS_ITS | Encounter Summary ---
Author Organization [facility] Address [address] [facility] [place] [address] Phone Care Team Providers Care Produce Team Lead Name Role Phone Flori Yeboah PAC Primary Care Pro vider Ramon Alford MD Unavailable Isac Pina MD Primary Care Provider +[phone]- [phone] Emma Gibson HTML WEB DEVELOPER, MEDICAL RECORD ASSISTANT Unavailable + [phone] Denise White HTML WEB DEVELOPER, PSYCHIATRIC NURSING AIDE Unavailable + [phone] Constance Garsia APRN, MEDICAL RECORD ASSISTANT Unavailable Christian Christian HTML WEB DEVELOPER, MEDICAL RECORD ASSISTANT Unavailable +[phone] Dean Sauceda MD Unavailable +[phone] Reason for Visit * Reason Comments Medication Refill Encounter Details Date Type Department Care Team (Late st Contact Info) Description 05/08/2023 [facility]ill [facility] - Internal Medicine - [place] [place] [address] Flori Yeboah, PAC [address] [place] [address] Medication Refill Social History Tobacco Use Types [...] 19 06/06/2023 06/06/2023 06/16/2023 12:1 6 AM TAP DANCER RSV 06/06/2023 06/06/2023 07/04/2023 12:1 6 AM TAP DANCER documented as of this encounter Care Teams Produce Team Lead Relationship Specialty Start Date End Date Flori Yeboah, [place] PCP - General Physician Pyrotechnician 08/26/22 06/09/23 Isac Weathers MD PCP - General Internal Medicine 06/10/23 Ramon Alford MD Consulting Physician Cardiovascular Disease - Cardiology 09/14/22 04/30/24 Emma Gibson APRN, MEDICAL RECORD ASSISTANT #2 [facility] [address] [place] [address] Nurse Practitioner Cardiology 07/05/23 12/04/24 Denise White APRN, PSYCHIATRIC NURSING AIDE #2 [place] [address] Nurse Practitioner Advanced Practice Nurse 09/25/22 Constance Garsia APRN, MEDICAL RECORD ASSISTANT #2 [place] [address] Nurse Practitioner Advanced Practice Nurse 12/02/22 Christian Christian APRN, CNP #2 [place] [address] Nurse Practitioner Advanced Practice Nurse 10/19/23 Dean Sauceda MD #2 [place] [address] Consulting Physician Neurology 04/28/24 documented as of this encounter
--- OUTSIDE RECORDS SUMMARY | 2025-03-06 11:09 | XMS_ITS | Encounter Summary ---
Author Organization [facility] Address [address] [place] [address] Phone Care Team Providers Care Bed Operator Name Role Phone Ramon Alford MD Unavailable [place] [employer] [facility] Isac Granda MD Primary Care Provider [phone]- [phone] Emma Gibson CATHODE RAY TUBE ASSEMBLER, DISTRICT OPERATIONS MANAGER Unavailable + [phone] Denise White CATHODE RAY TUBE ASSEMBLER, WALL MAN Unavailable + [phone] Constance Garsia CATHODE RAY TUBE ASSEMBLER, DISTRICT OPERATIONS MANAGER Unavailable Christian Christian CATHODE RAY TUBE ASSEMBLER, DISTRICT OPERATIONS MANAGER Unavailable +[phone] Dean Sauceda MD Unavailable +[phone] Reason for Visit * Reason Comments Medication Refill Encounter Details Date Type Department Care Team (Late st Contact Info) Description 10/30/2023 Refill [facility] - Internal Medicine - [place] [address] [place] [address] Isac Weathers MD [address] [place] [address] Medication Refill Social History Tobacco Use Types Packs/Day Years Used Date Smoking Tobacco: Never Passive Smoke Exposure: Never Smokeless Tobacco: Never Alcohol Use Standard Drinks/Week Comments Yes 0 (1 standard drink = 0.6 oz pur e alcohol) Occasional [facility] Utilities Answer Date Recorded In the [...] Never 09/14/2023 How often do you attend protestant or voodoo serv ices? Never 09/14/2023 Do you belong to any clubs o r organizations such as protestant groups, unions, fraternal or athletic groups, or [...] Total Score - Questions 1-9 0 06/25 [facility] - Occupational [...] place to sleep or slept in a long-term (including now)? No 09/14/2023 Sexually Active Control [...] Office Visit Flori Yeboah, PAC [facility] 09/20/23 Office Visit Flori Yeboah, PAC [facility] 08/17/23 Office Visit Isac Weathers, [facility] 07/14/23 Office Visit Isac Weathers MD [facility] 03/17/23 Office Visit Flori Yeboah, PAC [facility] 01/20/23 Office Visit Flori Yeboah, PAC [facility] 12/14/22 Office Visit Flori Yeboah, PAC [facility] 11/11/22 Office Visit Isac Weathers MD [facility] Showing recent visits within past 365 days and meeting all other requirements Future Appointments Date Type Provider Dept 11/17/23 Appointment Isac Weathers MD [facility] Showing future appointments within next 90 days [...] Depression Total Score: 0 07/14/19 10:17 AM MILL OPERATOR HELPER documented as of this encounter Care Teams Bed Operator Relationship Specialty Start Date End Date Isac Weathers MD PCP - General Internal Medicine 06/10/23 Ramon Alford MD Consulting Physician Cardiovascular Disease - Cardiology 09/14/22 04/30/24 Emma Gibson, CATHODE RAY TUBE ASSEMBLER, DISTRICT OPERATIONS MANAGER #[address] [address] Nurse Practitioner Cardiology 07/05/23 12/04/24 Denise White CATHODE RAY TUBE ASSEMBLER, WALL MAN [address] [place] [address] Nurse Practitioner Advanced Practice Nurse 09/25/22 Constance Garsia CATHODE RAY TUBE ASSEMBLER, DISTRICT OPERATIONS MANAGER #2 [place] [address] Nurse Practitioner Advanced Practice Nurse 12/02/22 Christian Christian CATHODE RAY TUBE ASSEMBLER, DISTRICT OPERATIONS MANAGER [address] [place] [address] Nurse Practitioner Advanced Practice Nurse 10/19/23 Dean Sauceda MD [address] [place] [address] Consulting Physician Neurology 04/28/24 documented as of this encounter
--- OUTSIDE RECORDS SUMMARY | 2025-03-06 11:09 | XMS_ITS | Encounter Summary ---
Author Organization [facility] Address [address] [facility] [place] [address] Phone Care Team Providers Care Block Operator Name Role Phone Flori Yeboah PAC Primary Care Pro vider Ramon Alford MD Unavailable Isac Pina MD Primary Care Provider +[phone]- [phone] Emma Gibson AGRICULTURAL PLOW OPERATOR, INFRASTRUCTURE TECHNICIAN Unavailable + [phone] Denise White AGRICULTURAL PLOW OPERATOR, STRUCTURAL STEEL WORKER HELPER Unavailable + [phone] Constance Garsia APRN, INFRASTRUCTURE TECHNICIAN Unavailable Christian Christian AGRICULTURAL PLOW OPERATOR, INFRASTRUCTURE TECHNICIAN Unavailable + [phone] Dean Sauceda MD Unavailable +[phone] Reason for Visit * Reason Comments Medication Refill Encounter Details Date Type Department Care Team (Late st Contact Info) Description 11/23/2022 Refill [facility] - Internal Medicine - [place] [address] [place] [address] Jayda Layton, PAC [address] [place] [address] Medication Refill Social History Tobacco Use Types [...] 19 06/06/2023 06/06/2023 06/16/2023 12:1 6 AM INSTRUCTIONAL DEVELOPER RSV 06/06/2023 06/06/2023 07/04/2023 12:1 6 AM INSTRUCTIONAL DEVELOPER documented as of this encounter Care Teams Block Operator Relationship Specialty Start Date End Date Flori Yeboah PAC PCP - General Physician Dag Sprayer 08/26/22 06/09/23 Isac Weathers MD PCP - General Internal Medicine 06/10/23 Ramon Alford MD Consulting Physician Cardiovascular Disease - Cardiology 09/14/22 04/30/24 Emma Gibson, AGRICULTURAL PLOW OPERATOR, INFRASTRUCTURE TECHNICIAN #2 [facility], [address] [place] [address] Nurse Practitioner Cardiology 07/05/23 12/04/24 Denise White APRN, STRUCTURAL STEEL WORKER HELPER #2 [place] [address] Nurse Practitioner Advanced Practice Nurse 09/25/22 Constance Garsia APRN, INFRASTRUCTURE TECHNICIAN #2 [place] [address] Nurse Practitioner Advanced Practice Nurse 12/02/22 Christian Christian APRN, INFRASTRUCTURE TECHNICIAN #2 [place] [address] Nurse Practitioner Advanced Practice Nurse 10/19/23 Dean Sauceda MD #2 [place] [address] Consulting Physician Neurology 04/28/24 documented as of this encounter
--- OUTSIDE RECORDS SUMMARY | 2025-03-06 11:09 | XMS_ITS | Encounter Summary ---
Author Organization [facility] Address [address] [place] [address] Phone Care Team Providers Care Plan Rep Name Role Phone Flori Yeboah PAC Primary Care Pro vider Ramon Alford MD Unavailable Isac Pina MD Primary Care Provider [phone] Emma Gibson HOME HOUSEKEEPER, SENIOR VICE PRESIDENT Unavailable + [phone] Denise White HOME HOUSEKEEPER, PLATE TAKE OUT WORKER Unavailable + [phone] Constance Garsia APRN, SENIOR VICE PRESIDENT Unavailable Christian Christian HOME HOUSEKEEPER, SENIOR VICE PRESIDENT Unavailable + [phone] Dean Sauceda MD Unavailable +[phone] Reason for Visit * Reason Comments Medication Refill Encounter Details Date Type Department Care Team (Late st Contact Info) Description 02/02/2023 [facility]ill [facility] Medical/Surgical Intensive Care [address] [place] [address] Flori Yeboah, PAC [address] [place] [address] Medication Refill Social History Tobacco Use Types [...] 19 06/06/2023 06/06/2023 06/16/2023 12:1 6 AM DIE CASTING SUPERVISOR RSV 06/06/2023 06/06/2023 07/04/2023 12:1 6 AM DIE CASTING SUPERVISOR documented as of this encounter Care Teams Plan Rep Relationship Specialty Start Date End Date Flori Yeboah PAC PCP - General Physician Public Address System Operator 08/26/22 06/09/23 Isac Weathers MD PCP - General Internal Medicine 06/10/23 Ramon Alford MD Consulting Physician Cardiovascular Disease - Cardiology 09/14/22 04/30/24 Emma Gibson, HOME HOUSEKEEPER, SENIOR VICE PRESIDENT #[address] [address] Nurse Practitioner Cardiology 07/05/23 12/04/24 Denise White, HOME HOUSEKEEPER, PLATE TAKE OUT WORKER #2 [place] [address] Nurse Practitioner Advanced Practice Nurse 09/25/22 Constance Garsia HOME HOUSEKEEPER, SENIOR VICE PRESIDENT #2 [place] [address] Nurse Practitioner Advanced Practice Nurse 12/02/22 Christian Christian, HOME HOUSEKEEPER, SENIOR VICE PRESIDENT #2 [place] [address] Nurse Practitioner Advanced Practice Nurse 10/19/23 Dean Sauceda MD #2 [place] [address] Consulting Physician Neurology 04/28/24 documented as of this encounter
--- OUTSIDE RECORDS SUMMARY | 2025-03-06 11:09 | XMS_ITS | Encounter Summary ---
Author Organization [facility] Address [address] [facility] [place] [address] Phone Care Team Providers Care Jewel Inspector Name Role Phone Ramon Alford MD Unavailable Isac Pina MD Primary Care Provider [phone]- [phone] Emma Gibson MULTIPLE RESAW OPERATOR, COOK PRESSURE Unavailable + [phone] Denise White MULTIPLE RESAW OPERATOR, SCIENTIFIC RECRUITER Unavailable + [phone] Constance Garsia MULTIPLE RESAW OPERATOR, COOK PRESSURE Unavailable Christian Christian MULTIPLE RESAW OPERATOR, COOK PRESSURE Unavailable +[phone] Dean Sauceda MD Unavailable +[phone] Reason for Visit * Reason Comments Medication Refill Encounter Details Date Type Department Care Team (Late st Contact Info) Description 08/25/2023 Refill [facility] Emergency [address] [place] [address] Flori Yeboah, BEL[place] [address] [place] [address] Medication Refill Social History Tobacco Use Types Packs/Day Years Used Date Smoking Tobacco: Never Passive Smoke Exposure: Never Smokeless Tobacco: Never Alcohol Use Standard Drinks/Week Comments Yes 0 (1 standard drink = 0.6 oz pur e alcohol) Occasional [facility] Utilities Answer Date Recorded [...] often do you attend chur ch or judaism services? More than 4 times per year 07/14/2023 Do you belong to any clubs o r organizations such as cheondoism groups, unions, fraternal or athletic groups, or [...] Total Score - Questions 1-9 0 06/25 [facility] Occupat ional Health - Occupational Stress [...] Depression Total Score: 0 07/14/19 10:17 AM EXHIBIT DESIGNER documented as of this encounter Care Teams Jewel Inspector Relationship Specialty Start Date End Date Isac Weathers MD PCP - General Internal Medicine 06/10/23 Ramon Alford MD Consulting Physician Cardiovascular Disease - Cardiology 09/14/22 04/30/24 Emma Gibson, MULTIPLE RESAW OPERATOR, COOK PRESSURE #[address] [address] Nurse Practitioner Cardiology 07/05/23 12/04/24 Denise White, MULTIPLE RESAW OPERATOR, SCIENTIFIC RECRUITER #2 [place] [address] Nurse Practitioner Advanced Practice Nurse 09/25/22 Constance Garsia, MULTIPLE RESAW OPERATOR, COOK PRESSURE #2 [place] [address] Nurse Practitioner Advanced Practice Nurse 12/02/22 Christian Christian, MULTIPLE RESAW OPERATOR, COOK PRESSURE #2 [place] [address] Nurse Practitioner Advanced Practice Nurse 10/19/23 Dean Sauceda MD #[address] [place] [address] Consulting Physician Neurology 04/28/24 documented as of this encounter
--- OUTSIDE RECORDS SUMMARY | 2025-03-06 11:09 | XMS_ITS | Encounter Summary ---
Author Organization [facility] Address [address] [facility] [place] [address] Phone Care Team Providers Care Lug Breaker And Wire Puller Name Role Phone Flori Yeboah PAC Primary Care Pro vider Ramon Alford MD Unavailable Unava Isac Granda MD Primary Care Provider [phone]- [phone] Emma Gibson ADMINISTRATIVE SUPPORT CLERK, PHOTOGRAMMETRIC SURVEYOR Unavailable + [phone] Denise White ADMINISTRATIVE SUPPORT CLERK, INSURANCE FOLLOW UP SPECIALIST Unavailable + [phone] Constance Garsia APRN, PHOTOGRAMMETRIC SURVEYOR Unavailable Christian Christian ADMINISTRATIVE SUPPORT CLERK, PHOTOGRAMMETRIC SURVEYOR Unavailable +[phone] Dean Sauceda MD Unavailable +[phone] Reason for Visit * Reason Comments Medication Refill Encounter Details Date Type Department Care Team (Late st Contact Info) Description 11/25/[address] [facility] Emergency [address] [place] [address] Isac Weathers MD [address] [place] [address] Medication Refill Social History Tobacco Use Types [...] 19 06/06/2023 06/06/2023 06/16/2023 12:1 6 AM BOX SEALING MACHINE CATCHER RSV 06/06/2023 06/06/2023 07/04/2023 12:1 6 AM BOX SEALING MACHINE CATCHER documented as of this encounter Care Teams Lug Breaker And Wire Puller Relationship Specialty Start Date End Date Flori Yeboah PAC PCP - General Physician Dynamite Cartridge Crimper 08/26/22 06/09/23 Isac Weathers MD PCP - General Internal Medicine 06/10/23 Ramon Alford MD Consulting Physician Cardiovascular Disease - Cardiology 09/14/22 04/30/24 Emma Gibson, ADMINISTRATIVE SUPPORT CLERK, PHOTOGRAMMETRIC SURVEYOR #[address] [address] Nurse Practitioner Cardiology 07/05/23 12/04/24 Denise White ADMINISTRATIVE SUPPORT CLERK, [facility] #[address] [place] [address] Nurse Practitioner Advanced Practice Nurse 09/25/22 Constance Garsia APRN, PHOTOGRAMMETRIC SURVEYOR #2 [place] [address] Nurse Practitioner Advanced Practice Nurse 12/02/22 Christian Christian APRN, PHOTOGRAMMETRIC SURVEYOR #[address] [place] [address] Nurse Practitioner Advanced Practice Nurse 10/19/23 Dean Sauceda MD #[address] [place] [address] Consulting Physician Neurology 04/28/24 documented as of this encounter
--- OUTSIDE RECORDS SUMMARY | 2025-03-06 11:09 | XMS_ITS | Encounter Summary ---
Author Organization [facility] Address [address] [facility] [place] [address] Phone Care Team Providers Care Safety Specialist Name Role Phone Flori Yeboah PAC Primary Care Pro vider Ramon Alford MD Unavailable Isac Pina MD Primary Care Provider +[phone]- [phone] Emma Gibson POWER SHOVEL MECHANIC, STATE TROOPER Unavailable + [phone] Denise White POWER SHOVEL MECHANIC, NAT INSTRUCTOR Unavailable + [phone] Constance Garsia APRN, STATE TROOPER Unavailable Christian Christian POWER SHOVEL MECHANIC, STATE TROOPER Unavailable +[phone] Dean Sauceda MD Unavailable +[phone] Reason for Visit * Reason Comments Medication Refill Encounter Details Date Type Department Care Team (Late st Contact Info) Description 03/20/2023 Refill [facility] - Internal Medicine - [place] [address] [place] [address] Flori Yeboah, PAC [address] [place] [address] Medication Refill Social History Tobacco Use Types [...] Office Visit Flori Yeboah, [place] [facility] 01/20/23 Office Visit Flori Yeboah, [place] [facility] 12/14/22 Office Visit Flori Yeboah, PAC [facility] 11/11/22 Office Visit Isac Weathers MD [facility] 10/28/22 Office Visit Flori Yeboah, BEL[place] [facility] 10/12/22 Office Visit Flori Yeboah, [place] [facility] 09/11/22 Office Visit Flori Yeboah, BEL[place]ICA [facility] 08/26/22 Office Visit Flori Yeboah, [place] [facility] Showing recent visits within past 365 days [...] 19 06/06/2023 06/06/2023 06/16/2023 12:1 6 AM BARBER INSTRUCTOR RSV 06/06/2023 06/06/2023 07/04/2023 12:1 6 AM BARBER INSTRUCTOR documented as of this encounter Care Teams Safety Specialist Relationship Specialty Start Date End Date Flori Yeboah PAC PCP - General Physician Gunstock Spray Unit Feeder 08/26/22 06/09/23 Isac Weathers MD PCP - General Internal Medicine 06/10/23 Ramon Alford MD Consulting Physician Cardiovascular Disease - Cardiology 09/14/22 04/30/24 Emma Gibson APRN, STATE TROOPER #2 [facility] [address] [place] [address] Nurse Practitioner Cardiology 07/05/23 12/04/24 Denise White APRN, NAT INSTRUCTOR #[address] [place] [address] Nurse Practitioner Advanced Practice Nurse 09/25/22 Constance Garsia APRN, STATE TROOPER #2 [place] [address] Nurse Practitioner Advanced Practice Nurse 12/02/22 Christian Christian APRN, STATE TROOPER [address] [place] [address] Nurse Practitioner Advanced Practice Nurse 10/19/23 Dean Sauceda MD #[address] [place] [address] Consulting Physician Neurology 04/28/24 documented as of this encounter
--- OUTSIDE RECORDS SUMMARY | 2025-03-06 11:09 | XMS_ITS | Encounter Summary ---
Author Organization [facility] Address [address] [facility] [place] [address] Phone Care Team Providers Care Shank Skinner Name Role Phone Flori Yeboah PAC Primary Care Pro vider Ramon Alford MD Unavailable UnaIsac Stubbs MD Primary Care Provider [phone]- [phone] Emma Gibson THERMITE BOMB LOADER, SERVICE STATION ATTENDANT Unavailable + [phone] Denise White THERMITE BOMB LOADER, RN TRANSITIONAL CARE Unavailable + [phone] Constance Garsia THERMITE BOMB LOADER, SERVICE STATION ATTENDANT Unavailable Christian Christian THERMITE BOMB LOADER, SERVICE STATION ATTENDANT Unavailable +[phone] Dean Sauceda MD Unavailable +[phone] Reason for Visit * Reason Comments Medication Refill Encounter Details Date Type Department Care Team (Late st Contact Info) Description 09/25/2022 Refill [facility] - Internal Medicine - [place] [address] [place] [address] Isac Weathers MD [address] [place] [address] Medication Refill Social History Tobacco Use Types [...] 19 06/06/2023 06/06/2023 06/16/2023 12:1 6 AM CAMP DIRECTOR RSV 06/06/2023 06/06/2023 07/04/2023 12:1 6 AM CAMP DIRECTOR documented as of this encounter Care Teams Shank Skinner Relationship Specialty Start Date End Date Flori Yeboah, [facility] PCP - General Physician Erp Business Analyst 08/26/22 06/09/23 Isac Weathers MD PCP - General Internal Medicine 06/10/23 Ramon Alford MD Consulting Physician Cardiovascular Disease - Cardiology 09/14/22 04/30/24 Emma Gibson APRN, SERVICE STATION ATTENDANT #2 [facility], [address] [place] [address] Nurse Practitioner Cardiology 07/05/23 12/04/24 Denise White APRN, RN TRANSITIONAL CARE #2 [place] [address] Nurse Practitioner Advanced Practice Nurse 09/25/22 Constance Garsia APRN, SERVICE STATION ATTENDANT #2 [place] [address] Nurse Practitioner Advanced Practice Nurse 12/02/22 Christian Christian APRN, SERVICE STATION ATTENDANT #2 [place] [address] Nurse Practitioner Advanced Practice Nurse 10/19/23 Dean Sauceda MD #2 [place] [address] Consulting Physician Neurology 04/28/24 documented as of this encounter
--- OUTSIDE RECORDS SUMMARY | 2025-03-06 11:09 | XMS_ITS | Encounter Summary ---
Author Organization [facility] Address [address] [facility] [place] [address] Phone Care Team Providers Care Yeast Tender Name Role Phone Flori Yeboah PAC Primary Care Pro vider Ramon Alford MD Unavailable Isac Pina MD Primary Care Provider [phone] Emma Gibson FLOOR COVERING PRINTER ASSISTANT, DIRECTOR OF CHILD WELFARE SERVICES Unavailable + [phone] Denise White FLOOR COVERING PRINTER ASSISTANT, LATHE OPERATOR Unavailable + [phone] Constance Garsia APRN, DIRECTOR OF CHILD WELFARE SERVICES Unavailable Christian Christian FLOOR COVERING PRINTER ASSISTANT, DIRECTOR OF CHILD WELFARE SERVICES Unavailable + [phone] Dean Sauceda MD Unavailable +[phone] Reason for Visit * Reason Comments Medication Refill Encounter Details Date Type Department Care Team (Late st Contact Info) Description 05/01/2023 Refill [facility] Medical/Surgical Intensive Care [address] [place] [address] Flori Yeboah, PAC [address] [place] [address] Medication Refill Social History Tobacco Use Types [...] no refill protocol information for this order INSPECTOR documented in this encounter Plan of Treatment Not on file documented as of this encounter Visit Diagnoses Not on filedocumented in this encounter Additional Health Concerns Infection Onset Date Last Indicated Resolved Time COVID - 19 06/06/2023 06/06/2023 06/16/2023 12:1 6 AM LAMP INSPECTOR RSV 06/06/2023 06/06/2023 07/04/2023 12:1 6 AM LAMP INSPECTOR documented as of this encounter Care Teams Yeast Tender Relationship Specialty Start Date End Date Flori Yeboah PAC PCP - General Physician Customer Business Manager 08/26/22 06/09/23 Isac Weathers MD PCP - General Internal Medicine 06/10/23 Ramon Alford MD Consulting Physician Cardiovascular Disease - Cardiology 09/14/22 04/30/24 Emma Gibson, FLOOR COVERING PRINTER ASSISTANT, DIRECTOR OF CHILD WELFARE SERVICES #2 [facility] [address] [place] [address] Nurse Practitioner Cardiology 07/05/23 12/04/24 Denise White, FLOOR COVERING PRINTER ASSISTANT, LATHE OPERATOR #2 [place] [address] Nurse Practitioner Advanced Practice Nurse 09/25/22 Constance Garsia, FLOOR COVERING PRINTER ASSISTANT, DIRECTOR OF CHILD WELFARE SERVICES #2 [place] [address] Nurse Practitioner Advanced Practice Nurse 12/02/22 Christian Christian FLOOR COVERING PRINTER ASSISTANT, DIRECTOR OF CHILD WELFARE SERVICES #[address] [place] [address] Nurse Practitioner Advanced Practice Nurse 10/19/23 Dean Sauceda MD #[address] [place] [address] Consulting Physician Neurology 04/28/24 documented as of this encounter
--- OUTSIDE RECORDS SUMMARY | 2025-03-06 11:09 | XMS_ITS | Encounter Summary ---
Author Organization [facility] Address [address] [place] [address] Phone Care Team Providers Care Assurance Analyst Name Role Phone Flori Yeboah PAC Primary Care Pro vider Ramon Alford MD Unavailable Isac Pina MD Primary Care Provider [phone] [place] Gibson ACCELERATOR SYSTEMS DIRECTOR, HOT MILL TIN ROLLER Unavailable + [phone] Denise White ACCELERATOR SYSTEMS DIRECTOR, CHIEF LEARNING OFFICER Unavailable + [phone] Constance Garsia APRN, HOT MILL TIN ROLLER Unavailable Christian Christian ACCELERATOR SYSTEMS DIRECTOR, HOT MILL TIN ROLLER Unavailable [phone] [place] Sauceda MD Unavailable +[phone] Reason for Visit * Reason Comments Medication Refill Encounter Details Date Type Department Care Team (Late st Contact Info) Description 10/28/2022 [facility]ill [facility] - Internal Medicine - [place] [address] [place] [address] Flori Yeboah, PAC [address] [place] [address] Medication Refill Social History Tobacco Use Types [...] Type Provider Dept 10/28/22 Office Visit Flori Yeboah, [place] [facility] [place] 10/12/22 [facility] [place] [facility] Office Visit Flori Yeboah, BELGICA [facility] [place] 08/26/22 Office Visit Flori Yeboah PAC [facility] [place] Showing recent visits within past 365 days and meeting all other requirements Future Appointments Date Type Provider Dept 11/11/22 Appointment [facility] [place] [facility]18/22 Appointment [facility]i [facility]ah [facility] [place] Showing future appointments within next 90 days and meeting all other requirements documented in this encounter Plan of Treatment Not on file documented as of this encounter Visit Diagnoses Not on filedocumented in this encounter Additional Health Concerns Infection Onset Date Last Indicated Resolved Time C. difficile Rule-Out 10/28/2022 10/28/20222022 6:05 PM CDT COVID - 19 06/06/2023 06/06/2023 06/16/2023 12:1 6 AM TAPE COATER RSV 06/06/2023 06/06/2023 07/04/2023 12:1 6 AM TAPE COATER documented as of this encounter Care Teams Assurance Analyst Relationship Specialty Start Date End Date Flori Yeboah, BELGICA PCP - General Physician Wage Conciliator 08/26/22 06/09/23 Isac Weathers MD PCP - General Internal Medicine 06/10/23 Ramon Alford MD Consulting Physician Cardiovascular Disease - Cardiology 09/14/22 04/30/24 [place] Gibson APRN, HOT MILL TIN ROLLER [address] [address] Nurse Practitioner Cardiology 07/05/23 12/04/24 Denise White APRN, CHIEF LEARNING OFFICER [address] [place] [address] Nurse Practitioner Advanced Practice Nurse 09/25/22 Constance Garsia APRN, HOT MILL TIN ROLLER [address] [place] [address] Nurse Practitioner Advanced Practice Nurse 12/02/22 Christian Christian APRN, HOT MILL TIN ROLLER [address] [place] [address] Nurse Practitioner Advanced Practice Nurse 10/19/23 [place] Sauceda MD [address] [place] [address] Consulting Physician Neurology 04/28/24 documented as of this encounter
--- OUTSIDE RECORDS SUMMARY | 2025-03-06 11:09 | XMS_ITS | Encounter Summary ---
Author Organization [facility] Address [address] [place] [address] Phone Care Team Providers Care Autism Teacher Name Role Phone Ramon Alford MD Unavailable Isac Pina MD Primary Care Provider [phone] [place] Gibson BARREL ENDSHAKE ADJUSTER, DELIVERY TRUCK DRIVER HEAVY Unavailable + [phone] Denise White BARREL ENDSHAKE ADJUSTER, ORTHOPEDIC TECHNICIAN Unavailable + [phone] Constance Garsia BARREL ENDSHAKE ADJUSTER, DELIVERY TRUCK DRIVER HEAVY Unavailable Christian Christian BARREL ENDSHAKE ADJUSTER, DELIVERY TRUCK DRIVER HEAVY Unavailable [phone] [place] Sauceda MD Unavailable +[phone] Reason for Visit * Reason Comments Medication Refill Encounter Details Date Type Department Care Team (Late st Contact Info) Description 10/23/2023 [facility]ill [facility] - [place] [address] [place] [address] Flori Yeboah, BELGICA [address] [place] [address] Medication Refill Social History Tobacco Use Types Packs/Day Years Used Date Smoking Tobacco: Never Passive Smoke Exposure: Never Smokeless Tobacco: Never Alcohol Use Standard Drinks/Week Comments Yes 0 (1 standard drink = 0.6 oz pur e alcohol) Occasional [facility] Utilities Answer Date Recorded In the [...] Never 09/14/2023 How often do you attend zoroastrianism or mu-ism serv ices? Never 09/14/2023 Do you belong to any clubs o r organizations such as zoroastrianism groups, unions, fraternal or athletic groups, or [...] Total Score - Questions 1-9 0 06/25 [facility] [place] of Occupat ional Health - Occupational Stress [...] place to sleep or slept in a alf (including now)? No 09/14/2023 Sexually Active Control [...] Provider Dept 09/27/23 Office Visit [facility] [place] [facility] [place] [facility] Office Visit Flori Yeboah, PAC [facility] [place] 08/17/23 Office Visit [facility]ac Weathers MD [facility] [place] 07/14/23 Office Visit Isac Weathers, [facility] [place] 03/17/23 Office Visit Flori Yeboah, PAC [facility] [place] 01/20/23 Office Visit Flori Yeboah, PAC [facility] [place] 12/14/22 Office Visit Flori Yeboah, PAC [facility] [place] 11/11/22 Office Visit Isac Weathers MD [facility] [place] 10/28/22 Office Visit Flori Yeboah, PAC [facility] [place] Showing recent visits within past 365 days and meeting all other requirements Future Appointments Date Type Provider Dept 11/17/23 Appointment [place]ac Weathers MD [facility] [place] Showing future appointments within next 90 days and meeting all other requirements documented in this encounter Plan of Treatment Not on file documented as of this encounter Visit Diagnoses Not on filedocumented in this encounter Additional Health Concerns Assessment Noted Time PHQ-9 Depression Total Score: 0 07/14/19 10:17 AM AUTOMOTIVE PORTER documented as of this encounter Care Teams Autism Teacher Relationship Specialty Start Date End Date Isac Weathers MD PCP - General Internal Medicine 06/10/23 Ramon Alford MD Consulting Physician Cardiovascular Disease - Cardiology 09/14/22 04/30/24 [place] Gibson APRN, DELIVERY TRUCK DRIVER HEAVY [address]2 [facility] [address] [place] [address] Nurse Practitioner Cardiology 07/05/23 12/04/24 Denise White APRN, ORTHOPEDIC TECHNICIAN [address] [place] [address] Nurse Practitioner Advanced Practice Nurse 09/25/22 Constance Garsia APRN, DELIVERY TRUCK DRIVER HEAVY [address] [place] [address] Nurse Practitioner Advanced Practice Nurse 12/02/22 Christian Christian APRN, DELIVERY TRUCK DRIVER HEAVY [address] [place] [address] Nurse Practitioner Advanced Practice Nurse 10/19/23 [place] Sauceda MD [address] [place] [address] Consulting Physician Neurology 04/28/24 documented as of this encounter
--- OUTSIDE RECORDS SUMMARY | 2025-03-06 11:09 | XMS_ITS | Encounter Summary ---
Author Organization [facility] Address [address] [facility] [place] [address] Phone Care Team Providers Care Business Development Sales Executive Name Role Phone Flori Yeboah PAC Primary Care Pro vider Ramon Alford MD Unavailable Unageovanna Isac Granda MD Primary Care Provider [phone] [place] Gibson LIABILITY CLAIMS REPRESENTATIVE, MANAGER INTENSIVE CARE Unavailable + [phone] Denise White LIABILITY CLAIMS REPRESENTATIVE, VEGETABLE CUTTER Unavailable + [phone] Constance Garsia APRN, MANAGER INTENSIVE CARE Unavailable Christian Christian LIABILITY CLAIMS REPRESENTATIVE, MANAGER INTENSIVE CARE Unavailable [phone] [place] Sauceda MD Unavailable [phone] Reason for Visit * Reason Comments Medication Refill Encounter Details Date Type Department Care Team (Late st Contact Info) Description 11/21/2022 [facility]ill [facility] Medical/Surgical Intensive Care [address] [place] [address] Isac Weathers MD [address] [place] [address] Medication Refill Social History Tobacco Use Types [...] 19 06/06/2023 06/06/2023 06/16/2023 12:1 6 AM BALANCER RSV 06/06/2023 06/06/2023 07/04/2023 12:1 6 AM BALANCER documented as of this encounter Care Teams Business Development Sales Executive Relationship Specialty Start Date End Date Flori Yeboah, BELGICA PCP - General Physician Plastic Parts Fabricator 08/26/22 06/09/23 Isac Weathers MD PCP - General Internal Medicine 06/10/23 Ramon Alford MD Consulting Physician Cardiovascular Disease - Cardiology 09/14/22 04/30/24 [place] Gibson APRN, MANAGER INTENSIVE CARE [address] [facility] [address] [place] [address] Nurse Practitioner Cardiology 07/05/23 12/04/24 Denise White APRN, VEGETABLE CUTTER [address] [place] [address] Nurse Practitioner Advanced Practice Nurse 09/25/22 Constance Garsia APRN, MANAGER INTENSIVE CARE [address] [place] [address] Nurse Practitioner Advanced Practice Nurse 12/02/22 Christian Christian APRN, MANAGER INTENSIVE CARE [address] [place] [address] Nurse Practitioner Advanced Practice Nurse 10/19/23 [place] Sauceda MD [address] [place] [address] Consulting Physician Neurology 04/28/24 documented as of this encounter
--- OUTSIDE RECORDS SUMMARY | 2025-03-06 11:09 | XMS_ITS | Encounter Summary ---
Author Organization [facility] Address [address] [facility] [place] [address] Phone Care Team Providers Care Shirt Folder Name Role Phone Flori Yeboah PAC Primary Care Pro vider Ramon Alford MD Unavailable Unageovanna Isac Granda MD Primary Care Provider [phone] [place] Gibson HUMAN RESOURCES TRAINER, QUALITATIVE EXECUTIVE RESEARCHER Unavailable + [phone] Denise White HUMAN RESOURCES TRAINER, RAND SEWER Unavailable + [phone] Constance Garsia APRN, QUALITATIVE EXECUTIVE RESEARCHER Unavailable Christian Christian HUMAN RESOURCES TRAINER, QUALITATIVE EXECUTIVE RESEARCHER Unavailable [phone] [place] Sauceda MD Unavailable +[phone] Reason for Visit * Reason Comments Medication Refill Encounter Details Date Type Department Care Team (Late st Contact Info) Description 11/17/2022 Refill [facility] Medical/Surgical Intensive Care [address] [place] [address] Isac Weathers MD [address] [place] [address] Medication Refill Social History Tobacco Use Types [...] 19 06/06/2023 06/06/2023 06/16/2023 12:1 6 AM OTHER SPORTS COACH OR INSTRUCTOR RSV 06/06/2023 06/06/2023 07/04/2023 12:1 6 AM OTHER SPORTS COACH OR INSTRUCTOR documented as of this encounter Care Teams Shirt Folder Relationship Specialty Start Date End Date Flori Yeboah, BELGICA PCP - General Physician Political Science Professor 08/26/22 06/09/23 Isac Weathers MD PCP - General Internal Medicine 06/10/23 Ramon Alford MD Consulting Physician Cardiovascular Disease - Cardiology 09/14/22 04/30/24 [place] Gibson APRN, QUALITATIVE EXECUTIVE RESEARCHER [address] [facility] [address] [place] [address] Nurse Practitioner Cardiology 07/05/23 12/04/24 Denise White APRN, RAND SEWER [address] [place] [address] Nurse Practitioner Advanced Practice Nurse 09/25/22 Constance Garsia APRN, QUALITATIVE EXECUTIVE RESEARCHER [address] [place] [address] Nurse Practitioner Advanced Practice Nurse 12/02/22 Christian Christian APRN, QUALITATIVE EXECUTIVE RESEARCHER [address] [place] [address] Nurse Practitioner Advanced Practice Nurse 10/19/23 [place] Sauceda MD [address] [place] [address] Consulting Physician Neurology 04/28/24 documented as of this encounter
--- OUTSIDE RECORDS SUMMARY | 2025-03-06 11:09 | XMS_ITS | Encounter Summary ---
Author Organization [facility] Address [address] [place] [address] Phone Care Team Providers Care Financial Service Rep Name Role Phone Flori Yeboah PAC Primary Care Pro vider Ramon Alford MD Unavailable Isac Pina MD Primary Care Provider [phone] [place] Gibson DESULFURIZER MACHINE, CURRENCY COUNTER Unavailable + [phone] Denise White DESULFURIZER MACHINE, HUMAN RELATIONS PROFESSOR Unavailable + [phone] Constance Garsia APRN, CURRENCY COUNTER Unavailable Christian Christian DESULFURIZER MACHINE, CURRENCY COUNTER Unavailable [phone] [place] Sauceda MD Unavailable [phone] Reason for Visit * Reason Comments Medication Refill Encounter Details Date Type Department Care Team (Late st Contact Info) Description 02/25/2023 Refill [facility] Emergency [address] [place] [address] Flori Yeboah, PAC [address] [place] [address] Medication Refill Social History Tobacco Use Types [...] 19 06/06/2023 06/06/2023 06/16/2023 12:1 6 AM PHOTOGRAPHY COLORIST RSV 06/06/2023 06/06/2023 07/04/2023 12:1 6 AM PHOTOGRAPHY COLORIST documented as of this encounter Care Teams Financial Service Rep Relationship Specialty Start Date End Date Flori Yeboah PAC PCP - General Physician Route Salesman 08/26/22 06/09/23 Isac Weathers MD PCP - General Internal Medicine 06/10/23 Ramon Alford MD Consulting Physician Cardiovascular Disease - Cardiology 09/14/22 04/30/24 [place] Gibson, DESULFURIZER MACHINE, CURRENCY COUNTER #[address] [address] Nurse Practitioner Cardiology 07/05/23 12/04/24 Denise White DESULFURIZER MACHINE, HUMAN RELATIONS PROFESSOR [address] [place] [address] Nurse Practitioner Advanced Practice Nurse 09/25/22 Constance Garsia APRN, CURRENCY COUNTER #[address] [place] [address] Nurse Practitioner Advanced Practice Nurse 12/02/22 Christian Christian DESULFURIZER MACHINE, CURRENCY COUNTER [address] [place] [address] Nurse Practitioner Advanced Practice Nurse 10/19/23 [place] Sauceda MD [address] [place] [address] Consulting Physician Neurology 04/28/24 documented as of this encounter
--- OUTSIDE RECORDS SUMMARY | 2025-03-06 11:09 | XMS_ITS | Encounter Summary ---
Author Organization [facility] Address [address] [facility] [place] [address] Phone Care Team Providers Care Platinumsmith Name Role Phone Flori Yeboah PAC Primary Care Pro vider Ramon Alford MD Unavailable UnaIsac Stubbs MD Primary Care Provider [phone] [place] Gibson WINDOWS PHONE DEVELOPER, SEED MILL SUPERINTENDENT Unavailable + [phone] Denise White WINDOWS PHONE DEVELOPER, PIECE WORK INSPECTOR Unavailable + [phone] Constance Garsia WINDOWS PHONE DEVELOPER, SEED MILL SUPERINTENDENT Unavailable Christian Christian WINDOWS PHONE DEVELOPER, SEED MILL SUPERINTENDENT Unavailable [phone] [place] Sauceda MD Unavailable +[phone] Reason for Visit * Reason Comments Medication Refill Encounter Details Date Type Department Care Team (Late st Contact Info) Description 09/23/2022 [facility]ill [facility] - Internal Medicine - [place] [address] [place] [address] Isac Weathers MD [address] [place] [address] Medication Refill Social History Tobacco Use Types [...] order placed on 08/24/2022 7:21 AM Order [id number]: celecoxib (CeleBREX) 200 MG Capsule (For orders [...] 08/26/22 Office Visit Flori Yeboah PAC [facility] Showing recent visits within past 365 days and meeting all other requirements Future Appointments Date Type Provider Dept 10/12/22 Appointment Flori Yeboah PAC [facility] Showing future appointments within next 90 days [...] 19 06/06/2023 06/06/2023 06/16/2023 12:1 6 AM PHARMACY COORDINATOR RSV 06/06/2023 06/06/2023 07/04/2023 12:1 6 AM PHARMACY COORDINATOR documented as of this encounter Care Teams Platinumsmith Relationship Specialty Start Date End Date Flori Yeboah PAC PCP - General Physician Chemical Treatment Operator 08/26/22 06/09/23 Isac Weathers MD PCP - General Internal Medicine 06/10/23 Ramon Alford MD Consulting Physician Cardiovascular Disease - Cardiology 09/14/22 04/30/24 [place] Gibson, WINDOWS PHONE DEVELOPER, SEED MILL SUPERINTENDENT #2 [facility], [address] [place] [address] Nurse Practitioner Cardiology 07/05/23 12/04/24 Denise White APRN, PIECE WORK INSPECTOR #[address] [place] [address] Nurse Practitioner Advanced Practice Nurse 09/25/22 Constance Garsia APRN, SEED MILL SUPERINTENDENT #[address] [place] [address] Nurse Practitioner Advanced Practice Nurse 12/02/22 Christian Christian APRN, SEED MILL SUPERINTENDENT [address] [place] [address] Nurse Practitioner Advanced Practice Nurse 10/19/23 [place] Sauceda MD #[address] [place] [address] Consulting Physician Neurology 04/28/24 documented as of this encounter
--- OUTSIDE RECORDS SUMMARY | 2025-03-06 11:09 | XMS_ITS | Encounter Summary ---
Author Organization [facility] Address [address] [facility] [place] [address] Phone Care Team Providers Care Hospital Insurance Clerk Name Role Phone Flori Yeboah PAC Primary Care Pro vider Ramon Alford MD Unavailable Isac Pina MD Primary Care Provider [phone] [place] SOLAR INSTALLATION TECHNICIAN, EXPERIMENTAL MACHINIST Unavailable + [phone] Denise White SOLAR INSTALLATION TECHNICIAN, BRAIDER TENDER Unavailable + [phone] Constance Garsia APRN, EXPERIMENTAL MACHINIST Unavailable Christian Christian SOLAR INSTALLATION TECHNICIAN, EXPERIMENTAL MACHINIST Unavailable [phone] [place] Sauceda MD Unavailable +[phone] Reason for Visit * Reason Comments Medication Refill Encounter Details Date Type Department Care Team (Late st Contact Info) Description 09/23/2022 Refill [facility] - Internal Medicine - [place] [address] [place] [address] Flori Yeboah, PAC [address] [place] [address] Medication Refill Social History Tobacco Use Types [...] 19 06/06/2023 06/06/2023 06/16/2023 12:1 6 AM CLINICAL ACADEMIC ALLERGIST RSV 06/06/2023 06/06/2023 07/04/2023 12:1 6 AM CLINICAL ACADEMIC ALLERGIST documented as of this encounter Care Teams Hospital Insurance Clerk Relationship Specialty Start Date End Date Flori Yeboah, [facility] PCP - General Physician Instrument Tech 08/26/22 06/09/23 Isac Weathers MD PCP - General Internal Medicine 06/10/23 Ramon Alford MD Consulting Physician Cardiovascular Disease - Cardiology 09/14/22 04/30/24 [place] Gibson APRN, EXPERIMENTAL MACHINIST #2 [facility], [address] [place] [address] Nurse Practitioner Cardiology 07/05/23 12/04/24 Denise White APRN, BRAIDER TENDER #[address] [place] [address] Nurse Practitioner Advanced Practice Nurse 09/25/22 Constance Garsia APRN, EXPERIMENTAL MACHINIST #[address] [place] [address] Nurse Practitioner Advanced Practice Nurse 12/02/22 Christian Christian APRN, EXPERIMENTAL MACHINIST [address] [place] [address] Nurse Practitioner Advanced Practice Nurse 10/19/23 [place] Sauceda MD #[address] [place] [address] Consulting Physician Neurology 04/28/24 documented as of this encounter
--- OUTSIDE RECORDS SUMMARY | 2025-03-06 11:09 | XMS_ITS | Encounter Summary ---
Author Organization [facility] Address [address] [facility] [place] [address] Phone Care Team Providers Care Epic Radiant Analyst Name Role Phone Flori Yeboah PAC Primary Care Pro vider Ramon Alford MD Unavailable UnaIsac Stubbs MD Primary Care Provider [phone] [place] Gibson SALES REPRESENTATIVE PUBLIC UTILITIES, WRAP KNITTING MACHINE OPERATOR Unavailable + [phone] Denise White SALES REPRESENTATIVE PUBLIC UTILITIES, GREENHOUSE LABORER Unavailable + [phone] Constance Garsia SALES REPRESENTATIVE PUBLIC UTILITIES, WRAP KNITTING MACHINE OPERATOR Unavailable Christian Christian SALES REPRESENTATIVE PUBLIC UTILITIES, WRAP KNITTING MACHINE OPERATOR Unavailable +[phone] [place] Sauceda MD Unavailable +[phone] Reason for Visit * Reason Comments Medication Refill Encounter Details Date Type Department Care Team (Late st Contact Info) Description 09/28/2022 Refill [facility] - Internal Medicine - [place] [address] [place] [address] Isac Weathers MD [address] [place] [address] Medication Refill Social History Tobacco Use Types [...] Office Visit Flori Yeboah PAC [facility] [place] 08/26/22 Office Visit [facility] [place] Show[facility] recent visits within past 365 days and meeting all other requirements Future Appointments Date Type Provider Dept 10/12/22 Appointment Flori Yeboah PAC [facility] [place] Showing future appointments within next 90 days [...] Office Visit Flori Yeboah PAC [facility] [place] 08/26/22 Office Visit Flori Yeboah, BELGICA [facility] [place] Showing recent visits within past 365 days and meeting all other requirements Future Appointments Date Type Provider Dept 10/12/22 Appointment Flori Yeboah PAC [facility] [place] Showing future appointments within next 90 days and meeting all other requirements documented in this encounter Plan of Treatment Not on file documented as of this encounter Visit Diagnoses Not on filedocumented in this encounter Additional Health Concerns Infection Onset Date Last Indicated Resolved Time C. difficile Rule-Out 10/28/2022 10/28/20222022 6:05 PM CDT COVID - 19 06/06/2023 06/06/2023 06/16/2023 12:1 6 AM METALLURGICAL ENGINEERING TECHNICIAN RSV 06/06/2023 06/06/2023 07/04/2023 12:1 6 AM METALLURGICAL ENGINEERING TECHNICIAN documented as of this encounter Care Teams Epic Radiant Analyst Relationship Specialty Start Date End Date Flori Yeboah PAC PCP - General Physician Financial Sales Manager 08/26/22 06/09/23 Isac Weathers MD PCP - General Internal Medicine 06/10/23 Ramon Alford MD Consulting Physician Cardiovascular Disease - Cardiology 09/14/22 04/30/24 [place] Gibson APRN, WRAP KNITTING MACHINE OPERATOR #2 [facility], [address] [address] Nurse Practitioner Cardiology 07/05/23 12/04/24 Denise White APRN, GREENHOUSE LABORER #[address] [place] [address] Nurse Practitioner Advanced Practice Nurse 09/25/22 Constance Garsia APRN, WRAP KNITTING MACHINE OPERATOR #[address] [place] [address] Nurse Practitioner Advanced Practice Nurse 12/02/22 Christian Christian APRN, WRAP KNITTING MACHINE OPERATOR #[address] [place] [address] Nurse Practitioner Advanced Practice Nurse 10/19/23 [place] Sauceda MD #[address] [place] [address] Consulting Physician Neurology 04/28/24 documented as of this encounter
--- OUTSIDE RECORDS SUMMARY | 2025-03-06 11:09 | XMS_ITS | Clinical Summary ---
Author Organization [facility] Address [address] [place] [address] Phone Care Team Providers Care Rolling Up Machine Operator Name Role Phone Isac Weathers MD Primary Care Provider [phone] Denise White APRN, AUXILIARY POWER EQUIPMENT OPERATOR Unavailable [phone] Constance Garsia APRN, STOCK UNLOADER Unavailable Christian Christian APRN, STOCK UNLOADER Unavailable Dean Sauceda MD Unavailable [phone] Allergies No known active allergies Medications aspirin 81 MG Chewable Tablet Take 81 mg by mouth daily. Active montelukast (SINGULAIR) 10 MG Tablet Take 10 mg by mouth every evening. 07/01/19 24 Active carvedilol (COREG) 3.125 MG Tablet TAKE 1 TABLET BY MOUTH TWICE A DAY 180 Tablet 3 10/04/19 24 Active alfuzosin (UROXATRAL) 10 MG TABLET SR 24 HRIndications:B enign prostatic hyperplasia with urinary hesitancy Take 1 Tablet by mouth daily (with breakfast). 90 Tablet 1 11/16/19 24 Active clopidogrel (PLAVIX) 75 MG Tablet TAKE 1 TABLET BY MOUTH EVERY DAY 90 Tablet 2 01/13/20 24 Active diphenoxylate-a tropine (LOMOTIL) 2.5-0.025 MG Tablet Take 1 Tablet by mouth 4 times daily as needed. 10/29/19 23 Active Empagliflozin (Jardiance) 10 MG Tablet Take 10 mg by mouth daily. 09/15/19 24 Active Ascorbic Acid (VITAMIN C PO) Take by mouth. Active Cholecalciferol (VITAMIN D-3 PO) Take by mouth. Active glucosamine-cho ndroitin 500-400 MG Capsule Take 2 Capsules by mouth 3 times daily. Active Cetirizine HCl (ZYRTEC ALLERGY PO) Take by mouth. Active atorvastatin (LIPITOR) 40 MG Tablet TAKE 1 TABLET BY MOUTH EVERY DAY AT NIGHT 90 Tablet 04/24/20 24 Active lisinopril (PRINIVIL, ZESTRIL) 5 MG Tablet TAKE 1 TABLET BY MOUTH EVERY DAY 90 Tablet 1 05/04/20 24 Active furosemide (LASIX) 40 MG Tablet Take 0.5 Tablets by mouth daily. 90 Tablet 1 08/31/19 25 Active spironolactone (ALDACTONE) 25 MG Tablet Take 1 Tablet by mouth daily. 90 Tablet 1 08/31/19 25 Active isosorbide mononitrate (IMDUR) 30 MG TABLET SR 24 HR TAKE 1 TABLET BY MOUTH EVERY DAY 90 Tablet 12/19/19 25 Active esomeprazole (NexIUM) 20 MG CAPSULE DELAYED RELEASE TAKE 1 CAPSULE BY MOUTH EVERY DAY 90 Capsule 1 02/24/20 25 Active esomeprazole (NexIUM) 20 MG CAPSULE DELAYED RELEASE Take 1 Capsule by mouth daily. 90 Capsule 1 08/31/19 25 025 Discontinued Active Problems Problem Noted Date Diagnosed Date [...] hypertension, benign Coronary artery disease invo lving [place] coronary artery of [place] heart without angina pectoris Resolved Problems Problem Noted Date Diagnosed Date Resolved Date COPD exacerbation 09/15/2023 11/17/2023 CHF exacerbation 09/15/2023 11/17/2023 Constipation 08/26/2022 07/14/2023 Asymptomatic bacteriuria Encounters Date Type Department Care Team Description 02/23/2025 [facility]ill [facility] [address] [place] [address] Isac Weathers MD Medication Refill 12/17/2024 [facility] [address] [place] [address] Flori Yeboah PAC Medication Refill from Last 3 Months Immunizations Immunization Administration Dates Next Due Influenza Vaccine,unspecified Formulation 2018 Influenza, High-dose, Quadrivalent 03/06/2020, Influenza, Quadrivalent, Adjuvanted 03/17/2023 Influenza, Trivalent, Adjuvanted, PF 02/21/2024 Influenza, high-dose, trivalent, PF 03/06/2020,1 07/03/2018 Pneumococcal Vaccine - 13 Valent 05/13/2020 Pneumococcal Vaccine Adult - 23 Valent 4,07/15/2010 Pneumococcal conjugate PCV20 , polysaccharide [id number] conjugate, adjuvant, PF 10/23/2021 TD VACCINE 03/31/2016 [...] = 0.6 oz pur e alcohol) Occasional [employer] Utilities Answer Date Recorded In the past 12 months has [employer] gas, oil, or water company threatened to shut off services in your home? No 09/14/2023 Social Connection and Isolation Panel Answer Date Recorded In a typical week, how many times do you talk on the phone with family, friends, or neighbors? Never 09/14/2023 How often do you get togethe r with friends or relatives? Never 09/14/2023 How often do you attend religious or jehovah's witness serv ices? Never 09/14/2023 Do you belong [...] Total Score - Questions 1-9 0 12/2024 [facility] of Occupat ional [facility] - Occupational Stress Questionnaire Answer Date Recorded [...] slept in a mcc (including now)? No 09/14/2023 Sexually Active Control [...] CDT Respiratory Rate 18 04/27/2024 1:42 PM [employer] POWER PLANT MANAGER Oxygen Saturation 94% 08/30/2024 8:33 AM [...] (Adult) (1 - 1-dose 75+ series) 2015 Medicare Initial AWV [id number] 05/24/2019 Influenza Immunization (#1) 01/22/20253 , 03/17/2023, 03/06/2020, Additional history exists SARS-COV-2 Immunization ( season) 2025 01/24/2021, 12/19/2020 Td Immunization Every 10 Years (Adults With [...] Documents on File Type Date Recorded Patient Pan Dumper Expl anation Power of [employer] Couch Frame Builder for Health Care 09/15/2023 10:13 AM Roseline Rosa POA-HC, 09/14/2023 [employer] Builder for Health Care 09/14/2023 1:47 PM POA-HC, 09/14/2023 [employer] Builder for Health Care 11/16/2022 10:27 AM POA-HC, [...] Agents on File Name Relationship Healthcare Agent Relationshi p Communication [facility] POA Care Teams Rolling Up Machine Operator Relationship Specialty Start Date End Date Isac Weathers MD PCP - General Internal Medicine 06/10/23 Denise White APRN, AUXILIARY POWER EQUIPMENT OPERATOR [address] [place] [address] Nurse Practitioner Advanced Practice Nurse 09/25/22 Constance Garsia APRN, STOCK UNLOADER [address] [place] [address] Nurse Practitioner Advanced Practice Nurse 12/02/22 Christian Christian APRN, STOCK UNLOADER [address] [place] [address] Nurse Practitioner Advanced Practice Nurse 10/19/23 Dean Sauceda MD [address] [place] [id number] Consulting Physician Neurology 04/28/24
[2025-03-06 11:28] LABS: Vitamin B12 631.0 pg/mL (239-931)
== END 2025-03-06 09:58 | disposition home or self-care (01) ==
PROVIDERS: PCP Family Medicine; Visit Provider Family Medicine
DX: D64.9 Anemia, unspecified (principal); I25.10 Atherosclerotic heart disease of native coronary artery without angina pectoris; Z95.5 Presence of coronary angioplasty implant and graft; E78.5 Hyperlipidemia, unspecified; R42 Dizziness and giddiness; R53.83 Other fatigue; E55.9 Vitamin D deficiency, unspecified
CPT/HCPCS: 36415; 80053; 82306; 82607; 85025

== ENCOUNTER 2025-03-09 14:32 | Outpatient (RCR) | payer OTHER, SELFPAY ==
--- NOTE | 2025-03-09 16:05 | PTOPEVDC ---
Assessment and note entered by Brooke Welsh, PT Thank you for referring Yazmin Estrada to [facility] An evaluation has been completed. No further treatment is needed. 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 not sure why sent me here; the meclazine he gave me is helping; I know how to handle it and not really bother me any more; [place] and does not want hearing aides--too expensive ; eats a [place] diet and his BP is normal now; Does NOT drink hardly any water. takes multiple meds for cardiac issues, aspirin, acid reflux and prostate meds symptoms: like just got off carnival ride/ spinning motion; last few seconds; increase symptoms with bending over to touch floor and raise up, quick motions of head, look up Reported Pain Level Pain Score 1: Self Report Additional Pain Score Comments constant pain in back, due to ankylosing spondylosis- Assessment PT Clinical Summary Yazmin has the diagnosis of dizziness, balance. He is active and lives alone, doing all home tasks. And has not had any falls. See above Subjective. With the evaluation: balance testing and strength testing were WNL: Gu balance score of 52/56; 5 reps sit/stand without use of UE in 14 seconds; 2 minute walking test distance of 600'; he reported dizziness with reaching to the floor and raising back up to standing, cleared in 6 seconds; with single leg standing and tandem standing, he was able to get to position, but not hold. He has a good understanding of safety and holding positions with change. Issued him HEP for single leg standing and tandem standing with UE support on counter top. Education to pt about basics of vestibular system, safety and to drink water---he does NOT drink water; mainly drinks coffee, tea. Discharge PT services. Completed education with pt. Plan of Care PT Services Indicated No
== END 2025-03-09 16:46 | disposition home or self-care (01) ==
LOC: ANHPT 14:32
PROVIDERS: PCP Family Medicine; Visit Provider Family Medicine
DX: R42 Dizziness and giddiness (principal)
CPT/HCPCS: 97110; 97161; 97530

== ENCOUNTER 2025-04-10 09:51 | Outpatient (CLI) | payer OTHER, SELFPAY ==
--- OUTSIDE RECORDS SUMMARY | 2025-04-10 17:37 | XMS_ITS | Clinical Summary ---
Author Organization [facility] [address] [facility] Address [address] [place] [address] Care Team Providers Care Early Childhood Aide Classroom Name Role Phone Faraz Burch MD Unavailable [phone] Isac Weathers MD Primary Care Provider [phone] Allergies No known active allergies Medications methylsulfonylme vidal 1,000 mg tablet Take by mouth Active ijwguvje-endk-DX -calcium-mins 18 mg iron-400 mcg-450 mg Ca [...] 07/14 Assessment & Plan (07/14/2022 5:17 PM REFERRAL AGENT): 82-year-old gentleman who is a new patient to me. His previous primary care physician is retiring. Is seeing a physician in [place]. Patient's no acute distress he communicates well he has no evidence of dementia. 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 Dizziness 07/14/2022 Assessment & Plan (07/14/2022 5:19 PM REFERRAL AGENT): Patient is 82 years old he describes [...] stenosis Assessment & Plan (07/14/2022 5:18 PM REFERRAL AGENT): Patient advised me he is a history of spinal stenosis he does not associated in his symptoms presently with this diagnosis Atopic rhinitis 04/06/2013 Overview (08/26/2016): Allergic rhinitis Cataract of both eyes 04/06/2013 Overview (08/26/2016): Cataracts, bilateral Generalized osteoarthritis 04/06/2013 Overview (08/28/2016): Osteoarthritis, generalized Assessment & Plan (07/14/2022 5:20 PM REFERRAL AGENT): Patient describes having osteoarthritis for knees and hips in the past not active problem at this time 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 Recurrent coronary arteriosc lerosis after percutaneous transluminal coronary angioplasty 04/06/2013 Overview (08/27/2016): CAD S/P percutaneous coronary angioplasty Benign prostatic hyperplasia 04/06/2013 Overview (08/27/2016): BPH (benign prostatic hypertrophy) Assessment & Plan (07/14/2022 5:18 PM REFERRAL AGENT): Patient is asymptomatic discussed why we do [...] Overview (08/27/2016): Erectile dysfunction Coronary arteriosclerosis in [place] artery 07/15 Overview (08/27/2016): SAMANTHA ATHYIN NATVE [facility] Assessment & Plan (07/14/2022 5:17 PM REFERRAL AGENT): Patient's stents placement approximate 9 years ago [...] on file Legal Sex Male 12:31 AM REFERRAL AGENT Gender Identity Not on file Sexual Orientation Not on file Last Filed Vital Signs Vital Sign Reading Time Taken Comments Blood Pressure 103/58 11/12/2023 9:31 AM CDT Pulse 68 11/12/2023 9:31 AM CDT Temperature 36.3 C (97.3 F) 07/14/2022 12:59 PM REFERRAL AGENT Respiratory Rate 18 11/12/2023 9:31 AM CDT [...] vaccine 65+ Completed 020, 06/26/2013, 07/15/[address] 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
== END 2025-04-10 09:52 | disposition home or self-care (01) ==
LOC: ANHBWCAUD 09:52
PROVIDERS: PCP Nurse Practitioner Family; Visit Provider Otolaryngology Otolaryngology/Facial Plastic Surgery
DX: H90.3 Sensorineural hearing loss, bilateral (principal)
CPT/HCPCS: 92557; 92567